=== PATIENT | male | born 1955 | race Caucasian/White ===

== ENCOUNTER 2016-10-11 11:46 | Emergency (ER) | payer MEDICARE, OTHER ==
[2016-10-11 12:02] VITALS: RESP 16; TEMP 97.8
--- NOTE | 2016-10-11 12:24 | XR ---
EXAMINATION TYPE: XR shoulder complete LT DATE OF EXAM: 10/11/2016 12:20 PM CLINICAL HISTORY: pain COMPARISON: NONE TECHNIQUE: Three views of the left shoulder are obtained. FINDINGS: There is no acute fracture/dislocation evident. Elevation left humeral head may reflect ch ronic rotator cuff tear. There appears to be subacromial impingement. Cystic degenerative changes not ed. AC joint arthropathy and narrowing of the glenohumeral joint space. The visualized ribs are intac t and unremarkable. IMPRESSION: 1. There is no acute fracture or dislocation. ICD 10 NO FRACTURE, INITIAL EVALUATION
[2016-10-11] MEDS ORDERED: KETOROLAC 60 MG/2 ML VIAL IM STA (12:31)
--- NOTE | 2016-10-11 12:35 | ED ---
Extremity Problem HPI - General Chief complaint: Extremity Problem,Nontraumatic Stated complaint: LEFT ARM PAIN, UNABLE TO LIFT Time Seen by Provider: 10/11/16 12:03 Source: patient, RN notes reviewed Mode of arrival: ambulatory Limitations: no limitations - History of Present Illness Initial comments: 61-year-old male presents to the emergency Department chief complaint of left shoulder pain. Patient states he's had this pain since the weekend. Patient states it started after he was cleaning his chandelier home. Patient states he has difficulty lifting his arm at all due to pain and feels weak. Patient states he binges like a snapping sensation and it fall down. Patient states he does have a history of a shoulder injury about 10 years ago. Patient states that he chest aching and painful and tender to touch without that he should be evaluated. Patient states he is not currently having any other symptoms at this time.Patient denies any recent fever, chills, shortness of breath, chest pain, back pain, abdominal pain, nausea vomiting, numbness or tingling, dysuria or hematuria, constipation or diarrhea, headaches or visual changes, or any other current symptoms. - Related Data Previous Rx's Medication Instructions Recorded Ibuprofen [Motrin] 600 mg PO Q6HR PRN #20 tab 10/11/16 Allergies Allergy/AdvReac Type Severity Reaction Status Date / Time No Known Allergies Allergy Verified 10/11/16 11:57 Review of Systems ROS Statement: Those systems with pertinent positive or pertinent negative responses have been documented in the HPI. ROS Other: All systems not noted in ROS Statement are negative. Past Medical History Past Medical History: Hyperlipidemia, Hypertension Additional Past Medical History / Comment(s): BACK PAIN History of Any Multi-Drug Resistant Organisms: MRSA Date of last positivie culture/infection: 2012 MDRO Source:: SKIN Past Surgical History: Cholecystectomy Additional Past Surgical History / Comment(s): CERVICAL SURGERY, FATTY TUMOR REMOVED, LEFT HAND SURGERY Past Psychological History: Depression Smoking Status: Current every day smoker Past Alcohol Use History: None Reported Past Drug Use History: None Reported General Exam Limitations: no limitations General appearance: alert, in no apparent distress ENT exam: Present: normal exam, mucous membranes moist Neck exam: Present: normal inspection. Absent: tenderness, meningismus, lymphadenopathy Respiratory exam: Present: normal lung sounds bilaterally. Absent: respiratory distress, wheezes, rales, rhonchi, stridor Cardiovascular Exam: Present: regular rate, normal rhythm, normal heart sounds. Absent: systolic murmur, diastolic murmur, rubs, gallop, clicks Left General: Present: normal inspection Shoulder Exam: Present: normal inspection, tenderness (Along the superior shoulders through the trapezius muscle), other (She has a positive decongestant left shoulder). Absent: full ROM (Patient has limited range of motion with total flexion of the shoulder due to pain), swelling, abrasion, laceration, ecchymosis, deformity Upper Arm exam: Present: normal inspection. Absent: tenderness, swelling Elbow exam: Present: normal inspection, full ROM. Absent: tenderness, swelling Forearm Wrist exam: Present: normal inspection, full ROM. Absent: tenderness, swelling Hand Wrist exam: Present: normal inspection, full ROM. Absent: tenderness, swelling Back exam: Present: normal inspection Course Vital Signs 10/11/16 11:58 Temperature 97.8 F Pulse Rate 89 Respiratory 16 Rate Blood Pressure 193/93 O2 Sat by Pulse 97 Oximetry Procedures - Orthopedic Splinting/Casting Injury #1 Side: left Upper Extremity Injury Location: shoulder Upper Extremity Immobilizer: sling/shoulder immobilizer Medical Decision Making - Medical Decision Making 61-year-old male presents for appears to be a left shoulder injury. This time we discussed it could be rotator cuff injury. We did give him a sling due to comfort. We did discuss the risk of frozen shoulder we did discuss how to properly wear the sling. We discussed return parameters and follow-up. We discussed all the patient's questions we will put him on Motrin. We discussed return parameters. Patient is in agreement with plan HAVE been answered. He will be discharged home. - Radiology Data Radiology results: report reviewed, image reviewed Disposition Clinical Impression: Left shoulder strain Disposition: HOME SELF-CARE Condition: Stable Instructions: Rotator Cuff Injury (ED) Additional Instructions: Please use medication as discussed. Please follow up with family doctor if symptoms have not improved over the next two days. Please return to the emergency room if your symptoms increase or worsen or for any other concerns. Prescriptions: Ibuprofen [Motrin] 600 mg PO Q6HR PRN #20 tab PRN Reason: Pain Referrals: Marina Marques MD [Primary Care Provider] - 1-2 days Ilya Blackburn MD [STAFF PHYSICIAN] - 1-2 days Time of Disposition: 12:35
[2016-10-11 12:42] VITALS: BP 183/92; PULSE 91
== END 2016-10-11 12:47 | disposition home or self-care (01) ==
LOC: EC 11:46
DX: S46.912A Strain of unspecified muscle, fascia and tendon at shoulder and upper arm level, left arm, initial encounter (principal); F17.200 Nicotine dependence, unspecified, uncomplicated; X58.XXXA Exposure to other specified factors, initial encounter; Y92.009 Unspecified place in unspecified non-institutional (private) residence as the place of occurrence of the external cause
CPT/HCPCS: 99283 ×2; 96372 ×2; 73030; J1885

== ENCOUNTER → 2016-11-24 | Outpatient (CLI) | payer MEDICARE, OTHER ==
--- NOTE | 2016-11-24 09:53 | CT ---
EXAMINATION TYPE: CT shoulder LT wo con DATE OF EXAM: 11/24/2016 COMPARISON: Left shoulder x-ray October 2016. HISTORY: Reaching to change light bulb, arm gave out, unable to use CT DLP: 640.7 mGycm Automated exposure control for dose reduction was used. FINDINGS: Acromioclavicular joint is maintained. There is high riding humeral head consistent with chronic rotator cuff tear. No acute fracture is vilma ntified. There is extensive subchondral cystic change involving the superior and medial humeral head. There is marked joint space loss with subchondral cystic change involving the superior acetabulum. There is s ome spurring from the inferior medial humeral head margin. [id number] is present due to marked join t space loss. There is ossific reformation present. There is moderate atrophy of the supraspinatus muscle bulk with more mild atrophy of the infraspinatu s and teres minor muscles identified. Visualized lungs show some scarring centrally. IMPRESSION: CHRONIC ROTATOR CUFF TEAR WITH ADVANCED GLENOHUMERAL JOINT ARTHROPATHY NOTED.
== END | disposition home or self-care (01) ==
LOC: RADCTMAIN 08:17
PROVIDERS: ATTEND Orthopaedic Surgery Sports Medicine
DX: M75.102 Unspecified rotator cuff tear or rupture of left shoulder, not specified as traumatic (principal); M19.012 Primary osteoarthritis, left shoulder

== ENCOUNTER → 2016-12-09 | Outpatient (CLI) | payer MEDICARE, OTHER ==
[2016-12-09 11:39] LABS: EKG EKG PERFORMED
[2016-12-09 12:17] LABS: Basophils # (A) 0.1 k/uL (0-0.2); Basophils % (A) 1 %; CH 30.8; CHCM 34.3; Eosinophils # (A) 0.2 k/uL (0-0.7); Eosinophils % (A) 2 %; HCT 42.4 % (39.0-53.0); HDW 2.65; HGB 14.5 gm/dL (13.0-17.5); Luc # (Auto) 0.16; Luc % (Auto) 2; Lymphocytes % (A) 19 %; MCH 30.8 pg (25.0-35.0); MCHC 34.1 g/dL (31.0-37.0); MCV 90.4 fL (80.0-100.0); Mean Platelet Volume 7.5; Monocytes # (A) 0.5 k/uL (0-1.0); Monocytes % (A) 4 %; Neutrophils # (A) 7.7 k/uL (1.3-7.7); Neutrophils % (A) 72 %; RBC 4.69 m/uL (4.30-5.90); RDW 13.9 % (11.5-15.5); WBC 10.6 k/uL (3.8-10.6); WBC (Perox) 10.81
[2016-12-09 12:19] LABS: INR 1.3 (<1.1); Partial Thromboplastin Time 23.7 sec (22.0-30.0); Prothrombin Time 12.8 sec (9.0-12.0)
[2016-12-09 12:35] LABS: ALT 24 U/L (21-72); AST 25 U/L (17-59); Alkaline Phosphatase 101 U/L (38-126); Anion Gap 11 mmol/L; Blood Urea Nitrogen 18 mg/dL (9-20); Calcium 9.5 mg/dL (8.4-10.2); Carbon Dioxide 19 mmol/L (22-30); Chloride 109 mmol/L (98-107); Glucose 106 mg/dL (74-99); Non-African American GFR(MDRD) >60 (>60 ml/min/1.73 sqM); Potassium 4.1 mmol/L (3.5-5.1); Sodium 139 mmol/L (137-145); Total Bilirubin 1.5 mg/dL (0.2-1.3); Total Protein 7.6 g/dL (6.3-8.2)
== END | disposition home or self-care (01) ==
LOC: LABPAT 11:07
PROVIDERS: ATTEND Orthopaedic Surgery Sports Medicine
DX: Z01.810 Encounter for preprocedural cardiovascular examination (principal); Z01.812 Encounter for preprocedural laboratory examination
CPT/HCPCS: 36415; 80053; 85025; 85610; 85730; 87070; 93005

== ENCOUNTER → 2016-12-10 | Outpatient (CLI) | payer MEDICARE, OTHER ==
[2016-12-10 11:06] LABS: Appearance,Urine Clear (Clear); Bilirubin,Urine Negative (Negative); Glucose,Urine (UA) Negative (Negative); Ketones,Urine Negative (Negative); Leukocyte Esterase,Urine Negative (Negative); Nitrite,Urine Negative (Negative); PH, Urine 6.5 (5.0-8.0); Protein,Urine Negative (Negative); Specific Gravity,Urine 1.017 (1.001-1.035); UA Billing (MACRO vs. MICRO) CHEM
== END | disposition home or self-care (01) ==
LOC: LABPAT 10:32
PROVIDERS: ATTEND Orthopaedic Surgery Sports Medicine
DX: Z01.810 Encounter for preprocedural cardiovascular examination (principal); Z51.81 Encounter for therapeutic drug level monitoring; Z79.01 Long term (current) use of anticoagulants
CPT/HCPCS: 81003

== ENCOUNTER 2016-12-16 08:00 | Inpatient (IN) | payer MEDICARE, OTHER ==
[2016-12-10 10:46] VITALS: BMI 34.2
[~2016-12-16 08:00] MED LIST: ACETAMINOPHEN TAB 500 MG TAB PO ONE; HYDROmorphone 1 MG/ML 1 ML SYRINGE IVP PRN; LACTATED RINGERS 1,000 ML IV SCH; LIDOCAINE 1% 20 ML VIAL (10MG/ML) FOR IV START INTRADERMA PRN; MELOXICAM 7.5 MG TAB PO ONE; MIDAZOLAM 2 MG/2 ML VIAL IV PRN; ONDANSETRON 4 MG/2 ML VIAL IVP ONE; SCOPOLAMINE 1.5MG/72HR PATCH TRANSDERM ONE; TRANEXAMIC ACID 1,000 MG in SODIUM CHLORIDE 0.9% 100 ML IVPB ONE; ceFAZolin 2 GM in SODIUM CHLORIDE 0.9% 100 ML IVPB ONE; fentaNYL (PF) 50 MCG/ML 20 ML VIAL IVP PRN
[2016-12-16] MEDS ORDERED: ROPIVACAINE 5 MG/ML 30 ML VIAL ONE (11:38)
[2016-12-16] MEDS ORDERED: LIDOCAINE 2%-EPI 1:100,000 20 ML VIAL ONE (11:38)
[2016-12-16] MEDS ORDERED: SODIUM CHLORIDE 0.9% 100 ML BAG ONE (11:38)
[2016-12-16] MEDS ORDERED: ROCURONIUM BROMIDE 10 MG/ML 10 ML VIAL IV ONE (11:38)
[2016-12-16] MEDS ORDERED: MIDAZOLAM 2 MG/2 ML VIAL ONE (11:38)
[2016-12-16] MEDS ORDERED: NEOSTIGMINE 1 MG/ML 10 ML VIAL ONE (11:38)
[2016-12-16] MEDS ORDERED: TRANEXAMIC ACID 1,000 MG/10 ML VIAL ONE (11:38)
[2016-12-16] MEDS ORDERED: LIDOCAINE 1% INJ 10MG/ML (20 ML MDV) ONE (11:38)
[2016-12-16] MEDS ORDERED: HYDROmorphone (PF) 1 MG/ML ONE (11:38)
[2016-12-16] MEDS ORDERED: ePHEDrine 50 MG/ML 1 ML AMP ONE (11:38)
[2016-12-16] MEDS ORDERED: SUCCINYLCHOLINE CHLORIDE VIAL 200 MG/10 ML VIAL IV ONE (11:38)
[2016-12-16] MEDS ORDERED: fentaNYL (PF) 50 MCG/ML 2 ML AMP ONE (11:38)
[2016-12-16] MEDS ORDERED: PROPOFOL 10 MG/ML 20 ML VIAL IV ONE (11:38)
[2016-12-16] MEDS ORDERED: GLYCOPYRROLATE 0.2 MG/ML 2 ML VIAL ONE (11:38)
[2016-12-16] MEDS ORDERED: ceFAZolin 3,000 MG in SODIUM CHLORIDE 0.9% IRRIGATIO 3,000 ML IRRIGATION ONE (12:28)
[2016-12-16] MEDS ORDERED: VANCOMYCIN 1,000 MG VIAL MISCELLANE ONE ×2 (12:41→13:11)
[2016-12-16] MEDS ORDERED: diphenhydrAMINE 25 MG CAP PO PRN (13:44)
[2016-12-16] MEDS ORDERED: METOCLOPRAMIDE 5 MG/ML 2 ML VIAL IVP PRN (13:44)
[2016-12-16] MEDS ORDERED: ONDANSETRON 4 MG/2 ML VIAL IVP PRN (13:44)
[2016-12-16] MEDS ORDERED: PROCHLORPERAZINE SUPPOSITORY 25 MG SUPP RECTAL PRN (13:44)
[2016-12-16] MEDS ORDERED: SENNOSIDES-DOCUSATE SODIUM 1 EACH TAB PO PRN (13:44)
[2016-12-16] MEDS ORDERED: TEMAZEPAM 15 MG CAP PO PRN (13:44)
[2016-12-16] MEDS ORDERED: hydrOXYzine PAMOATE 25 MG CAP PO PRN (13:44)
[2016-12-16] MEDS ORDERED: HYDROmorphone 1 MG/ML 1 ML SYRINGE IVP PRN ×2 (13:44)
[2016-12-16] MEDS ORDERED: LACTATED RINGERS 1,000 ML IV ONE (13:46)
[2016-12-16] MEDS ORDERED: HYDROcodone/APAP 10-325MG 1 EACH TAB PO PRN (13:50)
--- NOTE | 2016-12-16 14:15 | XR ---
EXAMINATION TYPE: XR shoulder limited LT DATE OF EXAM: 12/16/2016 CLINICAL HISTORY: Left shoulder surgical repair. TECHNIQUE: Single postoperative view of left shoulder is obtained. COMPARISON: Prior left shoulder x-ray October 2016. FINDINGS: Metallic hardware from reverse shoulder arthroplasty is present and satisfactory in positio n. Air from recent surgery seen subcutaneous level and just below acromion. Percutaneous drainage cat heter is present. The visualized ribs are intact and unremarkable. Suspect small left pleural effusi on. IMPRESSION: Metallic hardware from left shoulder surgery is felt satisfactory in position
[2016-12-16] MEDS ORDERED: HYDROmorphone 1 MG/ML 1 ML SYRINGE IVP ONE (14:17)
[2016-12-16] MEDS ORDERED: ROPIVACAINE 5 MG/ML 30 ML VIAL MISCELLANE ONE (14:30)
--- NOTE | 2016-12-16 14:47 | P.ONQ ---
Anesthesiology Proc Note - PNB - Peripheral Nerve Block Performed Left Interscalene Single Time Out Performed: Yes Procedure Start Time: 14:30 Procedure Stop Time: 14:34 Indication: Acute Post-Operative Pain, Requested by physician Sedation Type: Sedate with meaningful contact maintained Preparation: Sterile Prep Position: Supine Needle Size: 50mm (2") Needle Gauge: 21 Technique: Ultrasound Injectate: 2.0% Lidocaine (see comment for volume) (ropi.5% plus xylo2% 17 cc each) Blood Aspirated: No Pain Paresthesia on Injection Noted: No Resistance on Injection: Normal Events: Uneventful and Well Tolerated
[2016-12-16 14:51] VITALS: RESP 16
[2016-12-16] MEDS: LACTATED RINGERS 1,000 ML IV SCH ×2 (15:35→23:51)
[2016-12-16] MEDS: HYDROcodone/APAP 10-325MG 1 EACH TAB PO PRN ×2 (15:40→21:14)
[2016-12-16] MEDS: ceFAZolin 2 GM in SODIUM CHLORIDE 0.9% 100 ML IVPB SCH ×2 (15:40→23:50)
[2016-12-16 16:06] LABS: Basophils % (A) 0 %; CH 30.6; CHCM 34.1; Eosinophils # (A) 0.1 k/uL (0-0.7); Eosinophils % (A) 0 %; HCT 37.3 % (39.0-53.0); HDW 2.75; HGB 12.8 gm/dL (13.0-17.5); Luc # (Auto) 0.08; Luc % (Auto) 1; Lymphocytes # (A) 1.3 k/uL (1.0-4.8); Lymphocytes % (A) 8 %; MCHC 34.4 g/dL (31.0-37.0); MCV 90.2 fL (80.0-100.0); Mean Platelet Volume 7.4; Monocytes # (A) 0.6 k/uL (0-1.0); Monocytes % (A) 4 %; Neutrophils # (A) 14.1 k/uL (1.3-7.7); Neutrophils % (A) 87 %; RBC 4.14 m/uL (4.30-5.90); RDW 14.2 % (11.5-15.5); WBC 16.1 k/uL (3.8-10.6); WBC (Perox) 16.19
[2016-12-16] MEDS: DOXYCYCLINE 50 MG CAP PO SCH (21:14)
[2016-12-17] MEDS: HYDROmorphone 1 MG/ML 1 ML SYRINGE IVP PRN ×3 (00:03→05:03)
[2016-12-17 01:28] VITALS: TEMP 98.4
[2016-12-17] MEDS: HYDROcodone/APAP 10-325MG 1 EACH TAB PO PRN ×3 (03:23→13:19)
[2016-12-17] MEDS ORDERED: PANTOPRAZOLE 40 MG TABLET PO SCH (07:30)
[2016-12-17] MEDS: DOXYCYCLINE 50 MG CAP PO SCH (08:18)
[2016-12-17 08:23] VITALS: PULSE 72
--- NOTE | 2016-12-17 08:36 | OP ---
SURGEON: Ilya Blackburn MD EVENT SECURITY OFFICER: MEGAN Rodriguez PREOPERATIVE DIAGNOSIS: Left shoulder advanced rotator cuff arthropathy. POSTOPERATIVE DIAGNOSIS: Left shoulder advanced rotator cuff arthropathy. OPERATION: Left reverse total shoulder arthroplasty. ANESTHESIA: General endotracheal. ESTIMATED BLOOD LOSS: 250 mL. DRAINS: One deep drain. COMPLICATIONS: None apparent. DISPOSITION: Postanesthesia care unit. INDICATIONS: Mr. Dixon is a very pleasant 61-year-old male with long-standing left shoulder pain. Workup including x-rays revealed advanced osteoarthrosis with a chronic massive rotator cuff tear of the left shoulder. He has had long- standing advanced left shoulder rotator cuff arthropathy. At this point, he feels as if he has failed conservative management. He would like to proceed with operative intervention. The risks of procedure were discussed with him in detail. These risks include but are not limited to risk of infection, nerve damage, bleeding, pain, instability in the shoulder, loosening of the implants and a risk of deep infection. There is also risk of deep vein thrombosis, which could lead to fatal pulmonary embolism. The patient understands the risks. All of his questions with regards to the risks of the procedure were answered to his satisfaction and an appropriate informed consent was obtained. DESCRIPTION OF THE PROCEDURE: The patient was identified in the preoperative holding area. The surgical site was marked by both the patient and myself. He was given 2 grams of Ancef IV for prophylactic purposes. He was then transferred to the operative suite where he was placed supine on the operating room table. General anesthetic was then administered and dosed per the anesthesia department without apparently complication. Examination under anesthesia was then performed of the left shoulder. He had elevation to 120 degrees, external rotation at the side was to 30 degrees. The patient's left upper extremity was then prepped and draped in the usual sterile fashion. A standard surgical pause was then undertaken to ensure that we were operating on correct site and that appropriate preoperative antibiotics have been given. All staff in the room were in agreement and we proceeded. The acromion, AC joint, clavicle and coracoid were marked with surgical pen. The planned incision starting at the level of the clavicle and extending distally over the deltopectoral interval approximately 1 cm lateral to the coracoid was marked with a surgical pen. The incision was then made with a 10-blade scalpel. Dissection was carried down sharply to the deltoid fascia. The deltopectoral interval was then identified at the level of the clavicle. A small band retractor was then placed under the proximal deltoid. I then released the deltoid fascia on the lateral aspect of the cephalic vein. The vein was left in its bed medially. The cephalic vein was also protected throughout the entire case. I then identified the clavipectoral fascia. This was incised proximally to the level of the coracoacromial ligament. The coracoacromial ligament was left intact. I then used my finger to spread the interval between the conjoined tendon and the subscapularis. I felt for the axillary nerve, which was readily palpable. I then cleared the subacromial and subdeltoid spaces of bursal and scar tissue. I then utilized a Stinson retractor to hold the deltoid and expose the humeral head. I then proceed with release of the subscapularis and the anterior inferior shoulder capsule. The humeral head was nearly completely devoid of rotator cuff tissue. The supraspinatus and infraspinatus were chronically torn. The subscapularis had just an inferior aspect of the subscapularis was still intact. The subscapularis and capsule were then released off of the bone. This release was extended distally in a lazy S fashion approximately 1 cm medial to the bicipital groove. I then continued to release the capsule along the inferior neck in a vertical fashion to about the 6 o'clock position. Great care was taken to ensure the capsule was always visualized as it was released to avoid injuring the axillary nerve. I then brought a Collins information technology audit manager with the arm externally rotated and abducted. I continued to release the capsule inferior medially to the 4 o'clock position. The inferior osteophytes were now as removed as well. This was done with a rongeur. I then proceed with preparation of the humerus. I removed all the goat's garcia osteophytes. I then removed the subchondral plate from the superior aspect to the humeral head utilizing a large rongeur. I then used a starting reamer to gain access to the humeral canal. This was 1 cm medial to the rotator cuff, normal rotator cuff insertion and 1 cm posterior to bicipital groove. I then prepared the humeral canal with hand reaming. I started with a 6 mm reamer and progressed in 1 mm increments until firm resistance was encountered. This was at 9 mm. The reamer ( ) was then left in place. I then utilized the humeral resection guide. This was set at 30 degrees of retrotorsion. The cutting block was then set at the usual insertion of the rotator cuff. I then proceed to osteotomize the head with an oscillating saw. I removed the resection guide and then completed the osteotomy. I then broached the canal starting with a 6 broach up to a size 9 broach. The broaching was done at 30 degrees of retrotorsion. The broach was then left in place. I then proceeded with exposure of the glenoid. A bone hook was used to pull the humerus laterally. I inspected the joint for any loose bodies. The Bhattman retractor was then placed on the posterior glenoid rim. The arm was placed at approximately 70 degrees of abduction and in slight flexion on the Collins stand. I then proceed to remove the hypertrophic labrum to definitively identify the actual glenoid. I then utilized the mini baseplate guide. This was placed flushed with the glenoid. I then placed a starting pin in 10 degrees of inferior tilt as directed by the guide. This was then inspected. I then proceed with reaming. The cannulated reamer for the mini baseplate was then placed over the pin. The reaming was then done. I preferentially reamed the inferior aspect of the glenoid more than superior aspect providing normal inferior tilt to the baseplate. I then placed the mini baseplate and it was impacted into placed. I placed a central screw. This was a 35 mm central screw. It had excellent purchase. I was able to rotate the scapula with a screwdriver after the screw was placed. I then placed the 4 peripheral locking screws. The superior and inferior locking screws were 25 mm. The anterior and posterior locking screws were 15 mm. I then placed a size 36 Glenosphere. It was offset to preferentially allow inferior placement of the head relative to the glenoid. This Angela taper was then impacted into place and the Glenosphere was secure. I then trialed the shoulder with a standard baseplate and a standard polyethylene. This had an excellent fit. It was a slightly difficult reduction , had excellent tension. It was very stable throughout a full range of motion with no impingement. I then re-dislocated the shoulder very carefully. The trial broach, the trial tray and poly were moved. The wound was again thoroughly irrigated with sterile saline solution with antibiotic added. I had the promotions representative open a standard polyethylene and standard tray as well as a size 9 mini stem. The stem was then impacted firmly in 30 degrees of retrotorsion. The polyethylene was placed and impacted onto the tray on the back table. The tray was then impacted on the Angela taper of the stem properly. I then reduced the shoulder. Again, this was done very carefully. Again, it was a slightly difficult reduction. I had good tension. It was very stable. It had a good range of motion without any impingement. I then proceed with closure. The subscapularis was quite macerated and deemed irreparable. I did not repair the subscapularis. The wound again was thoroughly irrigated with sterile saline solution with antibiotic added. I used 1 gram of vancomycin powder within the wound. This was first sprinkled into the deep aspect of the wound. A deep drain was then placed and brought out superiorly away from the incision. The deltopectoral interval was then closed with 0 Vicryl interrupted suture. Again, the wound was thoroughly irrigated with sterile saline solution with antibiotic added. The remainder of the vancomycin powder was then sprinkled into the wound. The subcutaneous tissue was closed with 2-0 Vicryl interrupted suture and the skin was closed with running 3-0 Quill suture. Dermabond was then applied to the incision. Sterile compressive dressings were then applied. The patient's left upper extremity was placed in a standard sling. All sponge and needle counts were deemed correct prior to closure. The patient tolerated the procedure without apparent complication. He was transferred to the recovery room in stable condition. I visited him in the recovery room after he had awoken from general anesthesia. He had intact extensor pollicis longus, flexor pollicis longus, extensor indicis , hand intrinsics and the FDP to the small finger was intact. He had an intact radial, median and ulnar nerve sensation and he had a palpable radial pulse with brisk capillary refill in all digits. KWAKU
[2016-12-17] MEDS ORDERED: TAMSULOSIN 0.4 MG CAP.ER.24H PO SCH (09:00)
[2016-12-17] MEDS ORDERED: LISINOPRIL 10 MG TAB PO SCH (09:00)
[2016-12-17] MEDS ORDERED: ATORVASTATIN 40 MG TAB PO SCH (09:00)
[2016-12-17] MEDS ORDERED: ASPIRIN 325 MG TAB PO SCH (09:00)
[2016-12-17] MEDS ORDERED: CITALOPRAM HYDROBROMIDE 20 MG TAB PO SCH (09:00)
[2016-12-17] MEDS ORDERED: oxyCODONE ER 10 MG TAB.ER.12H PO SCH (09:00)
--- NOTE | 2016-12-17 09:36 | P.PN ---
Subjective Principal diagnosis: Status post reverse shoulder arthroplasty Patient is a pleasant 61-year-old male seen at bedside this morning. He is postop day #1 from left reverse total shoulder arthroplasty. He has pain at the surgical site as expected. He denies new complaints. He denies left upper extremity numbness, tingling or radicular symptoms. Review of systems is negative for fever, chills, chest pain or shortness of breath. Objective - Vital Signs Vital signs: Vital Signs Temp 98.4 F 12/17/16 07:00 Pulse 72 12/17/16 07:00 Resp 16 12/17/16 07:00 BP 188/79 12/17/16 07:00 Pulse Ox 95 12/17/16 07:39 Intake & Output 12/16/16 12/17/16 12/17/16 18:59 06:59 18:59 Intake Total 1501 Output Total 425 1395 Balance 1076 -1395 Weight 111.584 kg Intake: IV 1501 Output: Drainage 195 Left Shoulder 195 Urine 225 1200 Straight 600 Estimated Blood Loss 200 Other: # Voids 0 # Bowel Movements 1 - Exam Inspection of the left upper extremity shoulder shows a benign surgical wound. There is no active bleeding or drainage. Neurovascular status intact with motor and sensation throughout the left upper extremity. Wrist extension and Dining Room Server strength is 5 out of 5. 2+ radial pulse present and less than 2 second cap refill in all - Constitutional General appearance: Present: no acute distress - Psychiatric Psychiatric: Present: A&O x's 3, appropriate affect, intact judgment & insight - Labs CBC & Chem 7: 12/16/16 15:43 Labs: Abnormal Lab Results - Last 24 Hours (Table) 12/16/16 Range/Units 15:43 WBC 16.1 H (3.8-10.6) k/uL RBC 4.14 L (4.30-5.90) m/uL Hgb 12.8 L (13.0-17.5) gm/dL Hct 37.3 L (39.0-53.0) % Neutrophils # 14.1 H (1.3-7.7) k/uL Assessment and Plan (1) Status post total shoulder arthroplasty Narrative/Plan: He'll continue with routine postop orthopedic protocol including pain management , wound care, physical therapy and DVT prophylaxis and medical management. Hemovac drain will be removed. His pain medication will be adjusted to make him more comfortable. Expect that he'll be discharged to home tomorrow. Status: Acute Time with Patient: Less than 30
--- NOTE | 2016-12-17 10:21 | P.DS ---
Providers Date of admission: 12/16/16 09:18 Expected date of discharge: 12/17/16 Attending physician: Ilya Blackburn Consults: 12/16/16 13:44 Consult Physician Routine Consulting Provider: Darek Haile Consult Reason/Comments: post op medical management Do you want consulting provider notified?: Yes Primary care physician: Marina Marques - Discharge Diagnosis(es) (1) Status post total shoulder arthroplasty Patient was admitted the OR on 12/16/2016 to undergo left reverse total shoulder arthroplasty. He had failed conservative measures as an outpatient desired proceed with elective surgery after given informed consent. He underwent the above procedure which she tolerated well without complication. His postoperative hospital course remained without complication. On day of discharge she is afebrile, vital signs stable, labs within acceptable ranges, wound is benign, neurovascular status intact, total by mouth meds and diet, pain controlled with oral pain medication, abdomen soft nontender, nontender, denying new complaints, denying new numbness or tingling or weakness. Review of systems negative for fever, chills, chest pain, shortness breath, nausea, vomiting, dizziness, headaches, slurred speech or other. Current Visit: Yes Status: Acute Priority: Medium Procedures: Reverse total shoulder arthroplasty Patient Condition at Discharge: Good Plan - Discharge Summary New Discharge Prescriptions: New Aspirin 325 mg PO DAILY #30 tab Docusate [Colace] 100 mg PO BID #60 capsule Doxycycline Hyclate 100 mg PO BID #10 tab HYDROcodone/APAP 10-325MG [[place] 10-325] 1 tab PO Q4HR PRN #60 tab PRN Reason: Pain oxyCODONE ER [OxyCONTIN] 10 mg PO Q12HR #14 tab No Action HYDROcodone/APAP 7.5-325MG [[place] 7.5-325] 1 tab PO Q6HR PRN PRN Reason: Pain Diclofenac Sodium [Voltaren] 25 mg PO BID Citalopram Hydrobromide [CeleXA] 20 mg PO DAILY Tamsulosin HCl [Flomax] 0.4 mg PO DAILY Omeprazole [PriLOSEC] 20 mg PO AC-BRKFST Lisinopril [Zestril] 10 mg PO DAILY Ibuprofen [Motrin] 200 mg PO TID PRN PRN Reason: Pain Atorvastatin [Lipitor] 40 mg PO DAILY Discharge Medication List Atorvastatin [Lipitor] 40 mg PO DAILY 12/10/16 [History] Citalopram Hydrobromide [CeleXA] 20 mg PO DAILY 12/10/16 [History] Diclofenac Sodium [Voltaren] 25 mg PO BID 12/10/16 [History] HYDROcodone/APAP 7.5-325MG [[place] 7.5-325] 1 tab PO Q6HR PRN 12/10/16 [History] Ibuprofen [Motrin] 200 mg PO TID PRN 12/10/16 [History] Lisinopril [Zestril] 10 mg PO DAILY 12/10/16 [History] Omeprazole [PriLOSEC] 20 mg PO AC-BRKFST 12/10/16 [History] Tamsulosin HCl [Flomax] 0.4 mg PO DAILY 12/10/16 [History] Aspirin 325 mg PO DAILY #30 tab 12/17/16 [Rx] Docusate [Colace] 100 mg PO BID #60 capsule 12/17/16 [Rx] Doxycycline Hyclate 100 mg PO BID #10 tab 12/17/16 [Rx] HYDROcodone/APAP 10-325MG [[place] 10-325] 1 tab PO Q4HR PRN #60 tab 12/17/16 [Rx] oxyCODONE ER [OxyCONTIN] 10 mg PO Q12HR #14 tab 12/17/16 [Rx] Follow up Appointment(s)/Referral(s): Ilya Blackburn MD [STAFF PHYSICIAN] - 12/27/16 10:00 am Activity/Diet/Wound Care/Special Instructions: Keep wound clean and dry May shower in 72 hours Take meds as directed Follow up with Dr. Blackburn in office, [phone] Nonweightbearing left upper extremity Maintain sling Discharge Disposition: HOME SELF-CARE
[2016-12-17] MEDS: LACTATED RINGERS 1,000 ML IV SCH (10:52)
[2016-12-17 10:58] VITALS: BP 157/75
[2016-12-17] MEDS ORDERED: HYDROcodone/APAP 10-325MG 1 EACH TAB PO STA (11:15)
--- NOTE | 2016-12-17 12:28 | P.CONS ---
History of Present Illness - Reason for Consult Medical clearance, leukocytosis and antihypertensive medication recommendat - History of Present Illness Patient is admitted for left shoulder arthroplasty, patient successfully underwent surgery. Patient denied any fever, chills, nausea, vomiting, abdominal pain, cough patient had minimal pain secondary to the Khan catheter that was placed during surgery. Beyond that there is no significant other problems. Patient did move his bowels. Pain is well controlled. He was started back on all his medications including antihypertensive medications with well controlled blood pressure. The patient doesn't sleep very well patient may need outpatient sleep study. Patient doesn't have any fever. No other signs or symptoms of sepsis. Patient is okay to be discharged from medical perspective. Review of Systems REVIEW OF SYSTEMS: CONSTITUTIONAL: No fever, no malaise, no fatigue. HEENT: No recent visual problems or hearing problems. Denied any sore throat. CARDIOVASCULAR: No chest pain, orthopnea, PND, no palpitations, no syncope. PULMONARY: No shortness of breath, no cough, no hemoptysis. GASTROINTESTINAL: No diarrhea, no nausea, no vomiting, no abdominal pain. Normoactive bowel sounds. NEUROLOGICAL: No headaches, no weakness, no numbness. HEMATOLOGICAL: Denies any bleeding or petechiae. GENITOURINARY: Denies any burning micturition, frequency, or urgency. MUSCULOSKELETAL/RHEUMATOLOGICAL: Deferred to orthopedic surgery ENDOCRINE: Denies any polyuria or polydipsia. The rest of the 14-point review of systems is negative. Past Medical History Past Medical History: GERD/Reflux, Hyperlipidemia, Hypertension, Osteoarthritis (OA), Prostate Disorder Additional Past Medical History / Comment(s): BACK PAIN, VARICOSE VEINS, HX OF HEPATITIS C WITH LIVER DAMAGE. (2013), STATES MRSA OF SKIN (2012 OR 2013)., STATES SKIN TEARS AND BRUISES EASILY., RASH ON ANKLE., ENLARGED PROSTATE. History of Any Multi-Drug Resistant Organisms: MRSA Year Discovered:: 2012 MDRO Source:: SKIN Past Surgical History: Cholecystectomy Additional Past Surgical History / Comment(s): CERVICAL SURGERY, FATTY TUMOR REMOVED, LEFT HAND SURGERY. Past Anesthesia/Blood Transfusion Reactions: No Reported Reaction Smoking Status: Current every day smoker - Past Family History Mother Family Medical History: No Reported History Medications and Allergies Home Medications Medication Instructions Recorded Confirmed Type Atorvastatin [Lipitor] 40 mg PO DAILY 12/10/16 12/16/16 History Citalopram Hydrobromide [CeleXA] 20 mg PO DAILY 12/10/16 12/16/16 History Diclofenac Sodium [Voltaren] 25 mg PO BID 12/10/16 12/16/16 History HYDROcodone/APAP 7.5-325MG [[place] 1 tab PO Q6HR PRN 12/10/16 12/16/16 History 7.5-325] Lisinopril [Zestril] 10 mg PO DAILY 12/10/16 12/16/16 History Omeprazole [PriLOSEC] 20 mg PO AC-BRKFST 12/10/16 12/16/16 History Tamsulosin HCl [Flomax] 0.4 mg PO DAILY 12/10/16 12/16/16 History Allergies Allergy/AdvReac Type Severity Reaction Status Date / Time tramadol Allergy Unknown Rash/Hives Verified 12/16/16 14:05 bupropion [From Wellbutrin] AdvReac Unknown STATES IT Verified 12/16/16 14:05 MADE HIM ANGRY Physical Exam Vitals: Vital Signs Temp Pulse Resp BP BP Pulse Ox 12/17/16 10:58 157/75 12/17/16 07:39 95 12/17/16 07:00 98.4 F 72 16 188/79 93 L 12/17/16 01:26 98.4 F 69 16 140/70 96 12/16/16 20:08 98.5 F 79 16 114/63 94 L 12/16/16 16:45 79 110/58 94 L 12/16/16 16:30 79 103/53 94 L 12/16/16 16:15 77 97/56 94 L 12/16/16 16:00 76 16 105/51 94 L 12/16/16 15:45 77 107/51 93 L 12/16/16 15:30 97.5 F L 90 16 119/55 93 L 12/16/16 15:00 89 16 115/52 96 12/16/16 14:45 92 16 117/57 95 12/16/16 14:30 88 22 173/80 97 12/16/16 14:17 87 22 131/60 99 12/16/16 14:05 88 20 136/65 100 12/16/16 13:50 97.4 F L 94 14 142/63 94 L Intake and Output 12/16/16 12/17/16 12/17/16 22:59 06:59 14:59 Intake Total 480 Output Total 290 1255 Balance -290 -1255 480 Intake: Oral 480 Output: Drainage 140 55 Left Shoulder 140 55 Urine 150 1200 Straight 600 Other: # Voids 0 # Bowel Movements 1 Weight 111.584 kg PHYSICAL EXAMINATION: GENERAL: The patient is alert and oriented x3, not in any acute distress. Well developed, well nourished. HEENT: Pupils are round and equally reacting to light. EOMI. No scleral icterus. No conjunctival pallor. Normocephalic, atraumatic. No pharyngeal erythema. No thyromegaly. CARDIOVASCULAR: S1 and S2 present. No murmurs, rubs, or gallops. PULMONARY: Chest is clear to auscultation, no wheezing or crackles. ABDOMEN: Soft, nontender, nondistended, normoactive bowel sounds. No palpable organomegaly. MUSCULOSKELETAL: Deferred to primary service EXTREMITIES: No cyanosis, clubbing, or pedal edema. NEUROLOGICAL: Gross neurological examination did not reveal any focal deficits. SKIN: No rashes. Results CBC & Chem 7: 12/16/16 15:43 Labs: Abnormal Lab Results - Last 24 Hours (Table) 12/16/16 Range/Units 15:43 WBC 16.1 H (3.8-10.6) k/uL RBC 4.14 L (4.30-5.90) m/uL Hgb 12.8 L (13.0-17.5) gm/dL Hct 37.3 L (39.0-53.0) % Neutrophils # 14.1 H (1.3-7.7) k/uL Assessment and Plan Plan: #1 leukocytosis without any signs or symptoms of infection no further intervention or workup is necessary. Patient is okay to discharge from medical perspective 2 hypertension continue with lisinopril upon discharge. Left shoulder orthoplasty pain management as per primary service. #3 obesity with possible sleep apnea patient will need outpatient sleep study. #4 gastroesophageal reflux disease #5 benign prostatic hypertrophy . 6 hyperlipidemia
== END 2016-12-17 13:59 | disposition home or self-care (01) | DRG 483 ==
LOC: 2ORMAIN 09:18 → 3SUR 14:00
PROVIDERS: ADMIT Orthopaedic Surgery Sports Medicine; ATTEND Orthopaedic Surgery Sports Medicine
PROC: 0RRK00Z Replacement of Left Shoulder Joint with Reverse Ball and Socket Synthetic Substitute, Open Approach (ICD-10-PCS; principal; 2016-12-16 11:00)
DX: M19.012 Primary osteoarthritis, left shoulder (principal); I10 Essential (primary) hypertension; M75.102 Unspecified rotator cuff tear or rupture of left shoulder, not specified as traumatic; E78.5 Hyperlipidemia, unspecified; K21.9 Gastro-esophageal reflux disease without esophagitis; N40.0 Benign prostatic hyperplasia without lower urinary tract symptoms; F17.200 Nicotine dependence, unspecified, uncomplicated; B19.20 Unspecified viral hepatitis C without hepatic coma; M19.91 Primary osteoarthritis, unspecified site; I83.90 Asymptomatic varicose veins of unspecified lower extremity; Z98.1 Arthrodesis status; Z86.14 Personal history of Methicillin resistant Staphylococcus aureus infection; Z90.49 Acquired absence of other specified parts of digestive tract; Z79.899 Other long term (current) drug therapy
CPT/HCPCS: 64415; 85025; 88300; 94760

== ENCOUNTER → 2017-04-13 | Outpatient (CLI) | payer MEDICARE, OTHER ==
[2017-04-13 10:37] LABS: CH 29.8; CHCM 31.8; HCT 44.4 % (39.0-53.0); HDW 2.54; HGB 14.3 gm/dL (13.0-17.5); MCH 30.3 pg (25.0-35.0); MCHC 32.1 g/dL (31.0-37.0); MCV 94.2 fL (80.0-100.0); Mean Platelet Volume 7.7; RBC 4.71 m/uL (4.30-5.90); RDW 15.2 % (11.5-15.5); WBC 10.7 k/uL (3.8-10.6)
[2017-04-13 10:47] LABS: INR 1.3 (<1.2); Prothrombin Time 12.7 sec (9.0-12.0)
[2017-04-13 10:57] LABS: ALT 38 U/L (21-72); AST 23 U/L (17-59); Alkaline Phosphatase 106 U/L (38-126); Anion Gap 11 mmol/L; Blood Urea Nitrogen 12 mg/dL (9-20); Calcium 9.4 mg/dL (8.4-10.2); Carbon Dioxide 19 mmol/L (22-30); Chloride 108 mmol/L (98-107); Glucose 103 mg/dL (74-99); Non-African American GFR(MDRD) >60 (>60 ml/min/1.73 sqM); Potassium 4.7 mmol/L (3.5-5.1); Sodium 138 mmol/L (137-145); Total Bilirubin 0.8 mg/dL (0.2-1.3); Total Protein 7.8 g/dL (6.3-8.2)
== END ==
LOC: LABPAT 09:56
PROVIDERS: ATTEND Orthopaedic Surgery Sports Medicine
DX: Z01.818 Encounter for other preprocedural examination (principal)
CPT/HCPCS: 36415; 80053; 85027; 85610; 85730; 87070

== ENCOUNTER 2017-04-21 10:12 | Inpatient (IN) | payer MEDICARE, OTHER ==
[2017-04-15 11:27] VITALS: BMI 32.1
[~2017-04-21 10:12] MED LIST changes: +DEXAMETHASONE SOD PHOSPHATE 10 MG/ML 1 ML VIAL IV ONE; +HYDROmorphone 0.5 MG/0.5 ML SYRINGE IVP PRN; -HYDROmorphone 1 MG/ML 1 ML SYRINGE IVP PRN; -LACTATED RINGERS 1,000 ML IV SCH; -LIDOCAINE 1% 20 ML VIAL (10MG/ML) FOR IV START INTRADERMA PRN; -SCOPOLAMINE 1.5MG/72HR PATCH TRANSDERM ONE; -ceFAZolin 2 GM in SODIUM CHLORIDE 0.9% 100 ML IVPB ONE; +ceFAZolin IN SWFI 2 GM/20 ML SYRINGE IVP ONE; -fentaNYL (PF) 50 MCG/ML 20 ML VIAL IVP PRN
[2017-04-21] MEDS ORDERED: LIDOCAINE 1% 20 ML VIAL (10MG/ML) FOR IV START INTRADERMA ONE (11:10)
[2017-04-21] MEDS: LACTATED RINGERS 1,000 ML IV SCH ×2 (11:17→19:51)
[2017-04-21] MEDS ORDERED: ePHEDrine SULFATE/0.9% NACL/PF 50 MG/5 ML SYRINGE IV ONE (11:56)
[2017-04-21] MEDS ORDERED: SODIUM CHLORIDE 0.9% 100 ML BAG ONE (11:56)
[2017-04-21] MEDS ORDERED: MORPHINE SULFATE (PF) 0.3 MG/0.3 ML SYR ONE (11:56)
[2017-04-21] MEDS ORDERED: PROPOFOL 10 MG/ML 20 ML VIAL IV ONE (11:56)
[2017-04-21] MEDS ORDERED: TRANEXAMIC ACID 1,000 MG/10 ML VIAL ONE (11:56)
[2017-04-21] MEDS ORDERED: fentaNYL (PF) 50 MCG/ML 2 ML AMP ONE (11:56)
[2017-04-21] MEDS ORDERED: diphenhydrAMINE 50 MG/ML 1 ML VIAL ONE (11:56)
[2017-04-21] MEDS ORDERED: MIDAZOLAM 2 MG/2 ML VIAL ONE (11:56)
[2017-04-21] MEDS ORDERED: ceFAZolin 3,000 MG in SODIUM CHLORIDE 0.9% IRRIGATIO 3,000 ML IRRIGATION ONE (12:46)
[2017-04-21] MEDS ORDERED: ROPIVACAINE 246.25 MG, EPINEPHrine 0.5 MG, KETOROLAC 30 MG, cloNIDine HCL/PF 80 MCG, WA... MISCELLANE ONE ×5 (12:51)
[2017-04-21] MEDS ORDERED: LACTATED RINGERS 1,000 ML IV ONE (13:32)
[2017-04-21] MEDS ORDERED: ONDANSETRON 4 MG/2 ML VIAL IVP PRN (14:08)
[2017-04-21] MEDS ORDERED: NA PHOS,M-B/NA PHOS,DI-BA 133 ML ENEMA RECTAL PRN (14:08)
[2017-04-21] MEDS ORDERED: TEMAZEPAM 15 MG CAP PO PRN (14:08)
[2017-04-21] MEDS ORDERED: HYDROmorphone 0.5 MG/0.5 ML SYRINGE IVP PRN ×2 (14:08)
[2017-04-21] MEDS ORDERED: ACETAMINOPHEN TAB 325 MG TAB PO PRN (14:08)
[2017-04-21] MEDS ORDERED: hydrOXYzine PAMOATE 25 MG CAP PO PRN (14:08)
[2017-04-21] MEDS ORDERED: NALOXONE 0.4 MG/ML 1 ML VIAL IV PRN ×2 (14:08→19:05)
[2017-04-21] MEDS ORDERED: HYDROmorphone 2 MG/ML 1 ML SYRINGE IVP PRN (14:08)
[2017-04-21] MEDS ORDERED: MAGNESIUM HYDROXIDE 2,400 MG/10 ML CUP PO PRN (14:08)
[2017-04-21] MEDS ORDERED: DIAZEPAM 5 MG TAB PO PRN (14:08)
[2017-04-21] MEDS ORDERED: BISACODYL 10 MG SUPP RECTAL PRN (14:08)
[2017-04-21] MEDS ORDERED: HYDROcodone/APAP 10-325MG 1 EACH TAB PO PRN ×2 (14:08)
--- NOTE | 2017-04-21 14:58 | XR ---
Left knee HISTORY: Status post left knee arthroplasty 2 views of the left knee Patient is status post left knee arthroplasty. There is anatomic alignment. Lucency in the soft tissu es is compatible with postop state. IMPRESSION: Status post left knee arthroplasty.
--- NOTE | 2017-04-21 15:04 | OP ---
OPERATIVE REPORT DATE OF PROCEDURE: 04/21/2017. SURGEON: Ilya Blackburn MD. ANTISQUEAK FILLER: MEGAN Rodriguez. PREOPERATIVE DIAGNOSIS: Left knee osteoarthrosis. POSTOPERATIVE DIAGNOSIS: Left knee osteoarthrosis. OPERATION: Left total knee arthroplasty. ANESTHESIA: Was spinal with sedation. ESTIMATED BLOOD LOSS: Was 100 mL. TOURNIQUET TIME: 57 minutes at 250 mmHg. COMPLICATIONS: None apparent. DRAINS: None. DISPOSITION: Postanesthesia care unit. INDICATIONS: Agustin is a very pleasant, 62-year-old male with longstanding left knee pain. History and physical examination are consist with advanced left knee osteoarthrosis. He has been through fairly significant course of nonoperative management up to this point. Further treatment options were discussed and he has decided to go for the left total knee arthroplasty. The risks of procedure were discussed with him in detail. These risks include, but are not limited to, risk of infection, nerve damage, bleeding, pain, and a small risk of deep vein thrombosis which could lead to fatal pulmonary embolism. There is also risk of loosening of the implant which could require revision operation. The patient understands these risks. All of his questions were answered to his satisfaction. An appropriate informed consent was obtained. PROCEDURE: The patient identified in preoperative holding area. Surgical sites marked by both the patient myself. He was given 2 g of Ancef IV for prophylactic purposes. He was then transferred to the operative suite, was placed supine on the operative table. Spinal anesthetic was then administered dosed per the Anesthesia Department without apparent complication. Examination under anesthesia was then performed. He was 2-3 degrees shy of full extension. He had 100 degrees of flexion in the medial collateral ligament. Lateral collateral ligament and posterior cruciate ligaments were stable. Tourniquet was then placed high on the left upper thigh well-padded in preparation for surgery. The patient's left lower extremity was then prepped and draped in usual sterile fashion. Standard surgical pause then undertaken to ensure that we were operating on the correct site and that appropriate preoperative antibiotics were given. All staff in the room in agreement and we proceeded. The outlines of the patella were marked surgical pen. A planned 12 cm vertical incision centered over the patella was marked surgical pen. Leg was then exsanguinated with an Esmarch dressing. The knee was then flexed and the tourniquet was inflated to 250 mmHg. The total tourniquet time for the procedure was 57 minutes. Incision was then made with a 10 blade scalpel. Dissection was carried down sharply to the overlying fascia. Great care was taken to minimize the skin flaps. The knee was then exposed using a standard medial parapatellar approach. A small cuff of quadriceps tendon was left for suturing. He was in a bit of varus preoperatively. A standard medial release was then made. Superficial medial collateral ligament was dissected off of the bone around the posterior aspect of the proximal tibia. The medial meniscus was then excised as well. The lateral meniscus was also released anteriorly. The leg was then extra externally rotated. The patella was everted. The knee was flexed. The retractors were placed to protect the collateral ligaments. I then proceeded to remove the infrapatellar fat pad. This was excised sharply tangentially with the fibers of the of the patellar tendon. I then proceeded to remove peripheral osteophytes. This was done with a rongeur. I then proceeded with the distal femoral resection. He did have near full extension. A planned 9 mm resection was then done. The femoral canal was then entered in the midline of the femur approximately 10 mm anterior to the origin of the posterior cruciate ligament. The tianna was then advanced down the center of the femur and placed intramedullary. Based on preop radiographs the angle between the anatomic and mechanical axis of the femur was approximately 4-5 degrees. The valgus angle of the distal femoral cutting guide was then set at 4 degrees for the left knee. This femoral cutting guide was then advanced over the intramedullary tianna. This seated firmly against the femur. I then as mentioned planned to take 9 mm off the distal femur. The cutting block was then secured onto the femur with pins. The jig was then removed. The distal femoral cut was made through the slot of the block. The pins were then removed. The distal femoral cutting block was removed. The accuracy of the distal femoral cuts was checked with 2 flat bars. I then proceeded to femoral sizing. The posterior referencing sizing guide was held firmly against the resected distal surface of the femur. The posterior condyles were resting on the posterior plane of the guide. The sizing stylus was then placed onto the anterior femur. The size was measured as a size 9. I then assessed for femoral rotation. Plan was for 3 degrees of external rotation. 3 degrees of external rotation was placed onto the jig. These holes were then marked. Then confirmed the rotation by 3 separate methods. This is done using epicondylar axis as well as Whitesides line and posterior referencing. It was deemed that the external rotation was proper. I then went forward with placing the femoral cutting block. This was placed over the previously placed pin holes. The Servando wing was then placed onto the anterior slots to ensure that we would not notch the anterior femur. With the anterior femoral cut. I then proceed with the anterior femoral cut. This was flush with the anterior cortex of the femur. Posterior cuts were then made followed by the anterior chamfer cut, then the posterior chamfer cut. The cutting block was then removed. Throughout the resection the collateral ligaments were protected with retractors. I then placed a trial size 9 femur. It fit very nicely medial-lateral and fit flush with the distal end of the femur. The drill holes were then made. I then proceeded with the tibial cutter. Planned for cruciate retaining knee. The guide was then placed and set for varus valgus and for slope. The height was set for approximate 2 mm resection from the medial tibial plateau which was the lower side. I was happy with the alignment and amount of resection. The cutting block was then pinned to the proximal tibia. The alignment tianna was removed. The proximal tibia was resected with a reciprocating saw. Again this was done with retractors protecting the collateral ligaments as well as the posterior cruciate ligament. I then proceeded to evaluate the flexion and extension gaps. A 10 mm block was then placed. The flexion-extension gaps were equal. I then proceeded with resection of posterior osteophytes. He had very minimal posterior osteophytes. This was done using a curved osteotome. This resected the posterior osteophytes and posterior capsule stripping was also done off the posterior aspect of the femur at this time. The osteophytes were then removed. I then proceed to resection of patella. The thickness of patella was measured using the caliper. The thickness was 26 mm. The thickness of the anticipated patellar dome was then taken into account. Resection was then performed and confirmed to be equal in 4 quadrants using a caliper. Approximately 14 mm of bone remained after the resection. A 35 x 9 mm standard patellar trial was then placed. The wrist holes were then drilled. The trial was then placed. I then proceeded with sizing the tibial plate. A size G tibial plate fit very nicely. I then placed the trial femur the tibial tray and patellar button. A 10 mm trial tibial insert was also placed. The components fit very nicely. He had full flexion extension. Extension flexion gaps were equal and stable to both varus and valgus stress. The patella tracked appropriately. The tibial tray rotation was marked with a Bovie. This was externally rotated properly. I then proceed with tibial preparation. I first drilled the femoral holes and removed femoral component. The tibial tray was then set for proper external rotation, as well as mediolateral placement onto the tibia. It was then pinned into place. I then proceeded with punching the keel. I then decided to proceed with cementing of all of our components. The knee was thoroughly irrigated with sterile saline solution via pulse lavage. The lateral geniculate artery was identified and cauterized. All blood was removed from the bone of the tibia femur and patella with pulse lavage. I then proceed with cementing. Two packs of antibiotic bone cement were prepared on the back table by the surgical attendant. I then proceed with cementing the tibia first. The cement was impacted into the keel as well as deeply seated into the bone. A 2nd coat of cement was then placed. The tibia was then impacted into place. Excess cement was removed with [place]'s and jokers. I then proceed with cementing of the femoral component. Femoral component was also cemented using standard technique. Excess cement was removed. A 10 mm trial insert was then placed into the knee. It was brought into full extension with a constant axial load placed until the cement hardened. The patellar component was then cemented. This was held firmly with a compressive device until the cement dried. When the cement had dried, the knee was taken out of extension. All excess cement was removed from around the prosthesis. I then trialed the knee with a 10 mm insert. Flexion extension gaps were appropriate. I then trialed with a 12 mm insert. The flexion-extension gaps felt much better. The knee was stable with a 12 mm insert. Came into full extension. Decided to go for the 12 mm cross-linked cruciate-retaining tibial insert. Polyethylene was then placed onto the tray and locked into place. The knee was then reduced. The knee was again thoroughly further irrigated with sterile saline solution with antibiotic added. The tourniquet was then deflated. The total tourniquet time for the procedure was 57 minutes at 250 mmHg. Final components were Dean persona size 9 cruciate-retaining femoral component, a size G tibial tray, a 12 mm medial congruent cruciate-retaining polyethylene insert, and a 35 x 9 mm patella. I then proceeded with closure. Again, the knee was thoroughly irrigated. The quadriceps tendon and the medial retinaculum were reapproximated with a #2 Ethibond suture. The extensor mechanism was then closed with a running #2 Quill suture. Subcutaneous tissues were then closed with 2-0 Vicryl interrupted suture. The skin was closed with a running 3-0 Quill suture. Dermabond was applied to the incision. Sterile compressive dressings were then applied. All sponge, needle counts were deemed correct prior to closure. The patient tolerated the procedure apparent complication. He was transferred recovery room in stable condition. MMODL / IJN: [id number] /
[2017-04-21] MEDS ORDERED: PANTOPRAZOLE 40 MG TABLET PO PRN (15:19)
--- NOTE | 2017-04-21 16:08 | P.CONS ---
History of Present Illness - Reason for Consult Reconditions regarding hypertension, BPH - History of Present Illness Patient was admitted for elective left knee arthroplasty patient successfully underwent surgery clinically doing well denied any pain in the left knee area patient denied any nausea, vomiting, abdominal pain, dysuria, cough. Patient did not pass gas yet. Review of Systems REVIEW OF SYSTEMS: CONSTITUTIONAL: No fever, no malaise, no fatigue. HEENT: No recent visual problems or hearing problems. Denied any sore throat. CARDIOVASCULAR: No chest pain, orthopnea, PND, no palpitations, no syncope. PULMONARY: No shortness of breath, no cough, no hemoptysis. GASTROINTESTINAL: No diarrhea, no nausea, no vomiting, no abdominal pain. Normoactive bowel sounds. NEUROLOGICAL: No headaches, no weakness, no numbness. HEMATOLOGICAL: Denies any bleeding or petechiae. GENITOURINARY: Denies any burning micturition, frequency, or urgency. MUSCULOSKELETAL/RHEUMATOLOGICAL: Denies any joint pain, swelling, or any muscle pain. ENDOCRINE: Denies any polyuria or polydipsia. The rest of the 14-point review of systems is negative. Past Medical History Past Medical History: GERD/Reflux, Hyperlipidemia, Hypertension, Liver Disease, Osteoarthritis (OA), Prostate Disorder Additional Past Medical History / Comment(s): CHRONIC BACK PAIN, enlarged prostate, hx Hepatitis C in 2012, resolved now. History of Any Multi-Drug Resistant Organisms: MRSA Year Discovered:: 2012 MDRO Source:: SKIN "on whole body" Past Surgical History: Cholecystectomy, Joint Replacement Additional Past Surgical History / Comment(s): CERVICAL SURGERY, FATTY TUMOR REMOVED, LEFT HAND SURGERY. Left total shoulder. Past Anesthesia/Blood Transfusion Reactions: No Reported Reaction Past Psychological History: Depression Smoking Status: Current every day smoker Past Alcohol Use History: None Reported Additional Past Alcohol Use History / Comment(s): HAS BEEN SMOKING FOR 30 YRS OR MORE, DOWN TO 1/2 PPD FROM 1 PPD. Past Drug Use History: None Reported - Past Family History Mother Family Medical History: No Reported History Medications and Allergies Home Medications Medication Instructions Recorded Confirmed Type Atorvastatin [Lipitor] 40 mg PO DAILY 12/10/16 04/21/17 History Citalopram Hydrobromide [CeleXA] 20 mg PO DAILY 12/10/16 04/21/17 History Diclofenac Sodium [Voltaren] 25 mg PO BID PRN 12/10/16 04/21/17 History Lisinopril [Zestril] 10 mg PO DAILY 12/10/16 04/21/17 History Omeprazole [PriLOSEC] 20 mg PO AC-BRKFST PRN 12/10/16 04/21/17 History Tamsulosin HCl [Flomax] 0.4 mg PO DAILY 12/10/16 04/21/17 History Aspirin 325 mg PO DAILY #30 tab 12/17/16 04/21/17 Rx Docusate [Colace] 100 mg PO BID #60 capsule 12/17/16 04/21/17 Rx HYDROcodone/APAP 5-325MG [[place] 1 tab PO Q4HR PRN 04/15/17 04/21/17 History 5-325] Allergies Allergy/AdvReac Type Severity Reaction Status Date / Time tramadol Allergy Unknown Rash/Hives Verified 04/21/17 10:57 bupropion [From Wellbutrin] AdvReac Unknown STATES IT Verified 04/21/17 10:57 MADE HIM ANGRY Physical Exam Vitals: Vital Signs Temp Pulse Resp BP Pulse Ox 04/21/17 15:54 64 16 04/21/17 14:45 64 16 115/55 97 04/21/17 14:30 56 L 16 112/55 99 04/21/17 14:13 97.3 F L 64 14 110/52 95 04/21/17 11:22 97.9 F 84 18 186/94 97 Intake and Output 04/21/17 04/21/17 04/21/17 06:59 14:59 22:59 Intake Total 1151 Output Total 100 Balance 1051 Intake: IV 1151 Output: Estimated Blood Loss 100 Other: Weight 104.326 kg Patient Weight 04/22/17 06:59 Weight 104.326 kg PHYSICAL EXAMINATION: GENERAL: The patient is alert and oriented x3, not in any acute distress. Obese HEENT: Pupils are round and equally reacting to light. EOMI. No scleral icterus. No conjunctival pallor. Normocephalic, atraumatic. No pharyngeal erythema. No thyromegaly. CARDIOVASCULAR: S1 and S2 present. No murmurs, rubs, or gallops. PULMONARY: Chest is clear to auscultation, no wheezing or crackles. ABDOMEN: Soft, nontender, nondistended, normoactive bowel sounds. No palpable organomegaly. MUSCULOSKELETAL: Deferred to orthopedic surgery EXTREMITIES: No cyanosis, clubbing, or pedal edema. NEUROLOGICAL: Gross neurological examination did not reveal any focal deficits. SKIN: No rashes. Assessment and Plan Plan: 1 postoperative day 0: Pain management and DVT prophylaxis as per orthopedic surgery. #2 hypertension: To prevent perioperative hypotension which is very common will hold off on lisinopril. #3 benign prostatic hypertrophy #4 gastro-esophageal reflux disease #5 depression #6 hyperlipidemia For above-mentioned chronic medical problems patient will be continued on appropriate home medications medication reconciliation was done. We'll continue to follow the patient on as-needed basis.
[2017-04-21] MEDS ORDERED: diphenhydrAMINE 50 MG/ML 1 ML VIAL IVP PRN (19:05)
[2017-04-21] MEDS: DOCUSATE 100 MG CAP PO SCH (19:52)
[2017-04-21] MEDS: MORPHINE SULFATE 4 MG/ML SYRINGE IVP PRN (20:00)
[2017-04-21] MEDS: ceFAZolin IN SWFI 2 GM/20 ML SYRINGE IVP SCH (20:00)
[2017-04-21] MEDS: ASPIRIN 325 MG TAB PO SCH (20:10)
[2017-04-21] MEDS ORDERED: SENNOSIDES-DOCUSATE SODIUM 1 EACH TAB PO SCH (21:00)
[2017-04-22] MEDS ORDERED: TAMSULOSIN 0.4 MG CAP.ER.24H PO STA (00:08)
[2017-04-22] MEDS: MORPHINE SULFATE 4 MG/ML SYRINGE IVP PRN ×2 (00:21→04:15)
[2017-04-22 01:36] VITALS: PULSE 67
[2017-04-22] MEDS: LACTATED RINGERS 1,000 ML IV SCH ×2 (02:32→05:29)
[2017-04-22] MEDS: ceFAZolin IN SWFI 2 GM/20 ML SYRINGE IVP SCH (04:25)
--- NOTE | 2017-04-22 06:56 | P.PN ---
Progress Note - Text Progress Note Date: 04/22/17 Postoperative day 1 status post , total knee arthroplasty , under spinal anesthesia, and intrathecal morphine given for postoperative analgesia, patient doing well, has some localized incisional pain ,there is no anesthesia related complications, further management as per her primary team
[2017-04-22 07:15] VITALS: BP 124/65; TEMP 98.2
[2017-04-22 07:29] LABS: Basophils % (A) 0 %; CH 30.8; Eosinophils % (A) 0 %; HDW 2.59; Luc # (Auto) 0.18; Luc % (Auto) 1; Lymphocytes # (A) 1.2 k/uL (1.0-4.8); Lymphocytes % (A) 6 %; MCH 30.5 pg (25.0-35.0); MCHC 32.4 g/dL (31.0-37.0); MCV 93.9 fL (80.0-100.0); Mean Platelet Volume 7.8; Monocytes # (A) 0.8 k/uL (0-1.0); Monocytes % (A) 4 %; Neutrophils # (A) 16.7 k/uL (1.3-7.7); Neutrophils % (A) 88 %; RBC 3.94 m/uL (4.30-5.90); RDW 13.6 % (11.5-15.5)
[2017-04-22] MEDS: ASPIRIN 325 MG TAB PO SCH (08:26)
[2017-04-22] MEDS: DOCUSATE 100 MG CAP PO SCH (08:27)
[2017-04-22] MEDS ORDERED: TAMSULOSIN 0.4 MG CAP.ER.24H PO SCH (09:00)
[2017-04-22] MEDS ORDERED: CITALOPRAM HYDROBROMIDE 20 MG TAB PO SCH (09:00)
[2017-04-22] MEDS ORDERED: ATORVASTATIN 40 MG TAB PO SCH (09:00)
[2017-04-22] MEDS ORDERED: MULTIVITAMINS, THERA 1 EACH TAB PO SCH (12:00)
[2017-04-22 12:52] VITALS: RESP 16
--- NOTE | 2017-06-22 11:06 | P.DS ---
Providers Date of admission: 04/21/17 10:12 Expected date of discharge: 04/21/17 Attending physician: Ilya Blackburn Consults: 04/21/17 14:08 Consult Physician Routine Consulting Provider: Darek Haile Consult Reason/Comments: post op medical management Do you want consulting provider notified?: Yes Primary care physician: Marina Marques - Discharge Diagnosis(es) (1) Status post total knee replacement, left Patient was admitted to the OR on 04/21/17 to undergo left total knee arthroplasty. He had failed conservative measures as an outpatient and desired to proceed with elective surgery after given informed consent. He underwent the above procedure which he tolerated well without complication. Postoperative hospital course has remained without complication. On day of discharge he is afebrile, vital signs stable, labs within acceptable ranges, tolerating by mouth meds and diet, voiding without difficulty, positive flatus, denies abdominal pain or calf pain, pain is controlled on oral pain medication and has no new complaints. Wound is benign, neurovascular status is intact, calf is soft and nontender, abdomen soft and nontender. Review of systems is negative for numbness, tingling, fever, chills, chest pain, shortness breath, nausea, vomiting, dizziness, headaches, slurred speech or other. Status: Acute Priority: Medium Procedures: Left TKA Patient Condition at Discharge: Good Plan - Discharge Summary Discharge Rx Participant: Yes New Discharge Prescriptions: New Aspirin 325 mg PO BID #60 tab Docusate [Colace] 100 mg PO BID #60 capsule HYDROcodone/APAP 10-325MG [[place] 10-325] 1 tab PO Q4HR PRN #60 tab PRN Reason: Pain No Action Diclofenac Sodium [Voltaren] 25 mg PO BID PRN PRN Reason: Pain Citalopram Hydrobromide [CeleXA] 20 mg PO DAILY Tamsulosin HCl [Flomax] 0.4 mg PO DAILY Omeprazole [PriLOSEC] 20 mg PO AC-BRKFST PRN PRN Reason: Indigestion Lisinopril [Zestril] 10 mg PO DAILY Atorvastatin [Lipitor] 40 mg PO DAILY Aspirin 325 mg PO DAILY #30 tab Docusate [Colace] 100 mg PO BID #60 capsule HYDROcodone/APAP 5-325MG [[place] 5-325] 1 tab PO Q4HR PRN PRN Reason: Pain Discharge Medication List Atorvastatin [Lipitor] 40 mg PO DAILY 12/10/16 [History] Citalopram Hydrobromide [CeleXA] 20 mg PO DAILY 12/10/16 [History] Diclofenac Sodium [Voltaren] 25 mg PO BID PRN 12/10/16 [History] Lisinopril [Zestril] 10 mg PO DAILY 12/10/16 [History] Omeprazole [PriLOSEC] 20 mg PO AC-BRKFST PRN 12/10/16 [History] Tamsulosin HCl [Flomax] 0.4 mg PO DAILY 12/10/16 [History] Aspirin 325 mg PO DAILY #30 tab 12/17/16 [Rx] Docusate [Colace] 100 mg PO BID #60 capsule 12/17/16 [Rx] HYDROcodone/APAP 5-325MG [[place] 5-325] 1 tab PO Q4HR PRN 04/15/17 [History] Aspirin 325 mg PO BID #60 tab 04/22/17 [Rx] Docusate [Colace] 100 mg PO BID #60 capsule 04/22/17 [Rx] HYDROcodone/APAP 10-325MG [[place] 10-325] 1 tab PO Q4HR PRN #60 tab 04/22/17 [Rx] Follow up Appointment(s)/Referral(s): [facility], [NON-STAFF] - As Needed Ilya Blackburn MD [STAFF PHYSICIAN] - 05/06/17 1:45 pm Activity/Diet/Wound Care/Special Instructions: Keep wound clean and dry Take meds as directed Follow-up with Dr. Blackburn in office Weight-bear as tolerated May shower in 72 hours Discharge Disposition: HOME WITH HOME HEALTH SERVICES
== END 2017-04-22 12:50 | disposition home health service (06) | DRG 470 ==
LOC: 2ORMAIN 10:12 → 3SUR 14:23
PROVIDERS: ADMIT Orthopaedic Surgery Sports Medicine; ATTEND Orthopaedic Surgery Sports Medicine
PROC: 0SRD0J9 Replacement of Left Knee Joint with Synthetic Substitute, Cemented, Open Approach (ICD-10-PCS; principal; 2017-04-21 12:00)
DX: M17.12 Unilateral primary osteoarthritis, left knee (principal); I10 Essential (primary) hypertension; E78.5 Hyperlipidemia, unspecified; Z82.49 Family history of ischemic heart disease and other diseases of the circulatory system; Z79.891 Long term (current) use of opiate analgesic; Z79.899 Other long term (current) drug therapy; Z83.3 Family history of diabetes mellitus; F17.200 Nicotine dependence, unspecified, uncomplicated; K21.9 Gastro-esophageal reflux disease without esophagitis; N40.0 Benign prostatic hyperplasia without lower urinary tract symptoms; Z79.82 Long term (current) use of aspirin
CPT/HCPCS: 85025; 88300; 93005

== ENCOUNTER 2019-11-27 14:22 | Emergency (ER) | payer MEDICARE, OTHER ==
[2019-11-27 14:30] VITALS: RESP 16; TEMP 98
--- NOTE | 2019-11-27 15:00 | ED ---
General Adult HPI - General Chief complaint: Altered Mental Status Stated complaint: Overdose Time Seen by Provider: 11/27/19 14:32 Source: patient, EMS, RN notes reviewed, old records reviewed Mode of arrival: EMS Limitations: no limitations - History of Present Illness Initial comments: 64-year-old male presenting for evaluation of suspected overdose. Patient is currently on Vicoprofen 7.5 mg. He had a prescription filled last week and was noted by EMS to have very few remaining pills. He was found unresponsive with agonal respirations. EMS of been called by his . He was given 2 mg of intravenous Narcan. He became alert with spontaneous respiration. He did vomit several times. Patient has no complaints at the time my evaluation. He does state that he has been taking this medication for pain. He denies suicidal or homicidal ideation. He is alert and oriented but somewhat slow to respond. - Related Data Home Medications Medication Instructions Recorded Confirmed Atorvastatin [Lipitor] 40 mg PO DAILY 12/10/16 11/27/19 Citalopram Hydrobromide [CeleXA] 20 mg PO DAILY 12/10/16 11/27/19 Diclofenac Sodium [Voltaren] 25 mg PO BID 12/10/16 11/27/19 Lisinopril [Zestril] 10 mg PO DAILY 12/10/16 11/27/19 Omeprazole [PriLOSEC] 20 mg PO DAILY 12/10/16 11/27/19 Tamsulosin HCl [Flomax] 0.4 mg PO DAILY 12/10/16 11/27/19 HYDROcodone/IBUPROFEN 7.5-200 1 tab PO BID 11/27/19 11/27/19 [Vicoprofen 7.5-200 mg] Allergies Allergy/AdvReac Type Severity Reaction Status Date / Time tramadol Allergy Unknown Rash/Hives Verified 11/27/19 16:53 bupropion [From Wellbutrin] AdvReac Unknown STATES IT Verified 11/27/19 16:53 MADE HIM ANGRY Review of Systems ROS Statement: Those systems with pertinent positive or pertinent negative responses have been documented in the HPI. ROS Other: All systems not noted in ROS Statement are negative. Past Medical History Past Medical History: Hyperlipidemia, Hypertension Additional Past Medical History / Comment(s): BACK PAIN History of Any Multi-Drug Resistant Organisms: MRSA Date of last positivie culture/infection: 2013 MDRO Source:: SKIN Past Surgical History: Cholecystectomy Additional Past Surgical History / Comment(s): CERVICAL SURGERY, FATTY TUMOR REMOVED, LEFT HAND SURGERY Past Anesthesia/Blood Transfusion Reactions: No Reported Reaction Past Psychological History: Depression Smoking Status: Current every day smoker Past Alcohol Use History: None Reported Past Drug Use History: None Reported - Past Family History Mother Family Medical History: No Reported History General Exam Limitations: no limitations General appearance: alert, in no apparent distress Head exam: Present: atraumatic, normocephalic Eye exam: Present: normal appearance, PERRL ENT exam: Present: normal exam Neck exam: Present: normal inspection. Absent: tenderness, meningismus Respiratory exam: Present: normal lung sounds bilaterally. Absent: respiratory distress, wheezes, rales Cardiovascular Exam: Present: regular rate, normal rhythm GI/Abdominal exam: Present: soft. Absent: distended, tenderness, guarding, rebound Extremities exam: Present: normal inspection, normal capillary refill. Absent: pedal edema, calf tenderness Neurological exam: Present: alert, CN II-XII intact. Absent: motor sensory deficit Psychiatric exam: Present: normal affect, normal mood. Absent: homicidal ideation, suicidal ideation Skin exam: Present: warm, dry, intact. Absent: cyanosis, diaphoretic Course Vital Signs 11/27/19 14:24 Temperature 98.0 F Pulse Rate 98 Respiratory 16 Rate Blood Pressure 171/100 O2 Sat by Pulse 99 Oximetry - Reevaluation(s) Reevaluation #1: 11/27/19 15:57 Patient reevaluated, alert and oriented, no respiratory distress. is at bedside who states that he has been taking medication from family member and from the neighbor including [place] and morphine. Patient again denies any suicidal ideation. He states he has chronic pain. He is evaluated by EPS and given referral for substance abuse. Medical Decision Making - Medical Decision Making 64 yo male with overdose, on Vicoprofen, Vicodin, and morphine. 2 out of 3 of these medications are not prescribed to the patient. His altered mental status and apnea resolved with Narcan. He is observed in the emergency department for 3 hours. He does admit that he has been over taking his medication. His is at bedside. They're given referral to substance abuse and outpatient resources. He is not suicidal. He is alert and oriented 3 able to make his own decisions. He is eager for discharge. He can be closely observed at home for the next several hours. - Lab Data Lab Results 11/27/19 11/27/19 Range/Units 14:32 14:33 Urine Color Yellow Urine Appearance Clear (Clear) Urine pH 5.5 (5.0-8.0) Ur Specific [place] 1.015 (1.001-1.035) Urine Protein 1+ H (Negative) Urine Glucose (UA) Negative (Negative) Urine Ketones Negative (Negative) Urine Blood Trace H (Negative) Urine Nitrite Negative (Negative) Urine Bilirubin Negative (Negative) Urine Urobilinogen <2.0 (<2.0) mg/dL Ur Leukocyte Esterase Negative (Negative) Urine RBC 2 (0-5) /hpf Urine WBC 2 (0-5) /hpf Hyaline Casts 80 H (0-2) /lpf Urine Mucus Rare H (None) /hpf Urine Opiates Screen Detected H (NotDetected) Ur Oxycodone Screen Not Detected (NotDetected) Urine Methadone Screen Not Detected (NotDetected) Ur Propoxyphene Screen Not Detected (NotDetected) Ur Barbiturates Screen Not Detected (NotDetected) U Tricyclic Antidepress Not Detected (NotDetected) Ur Phencyclidine Scrn Not Detected (NotDetected) Ur Amphetamines Screen Not Detected (NotDetected) U Methamphetamines Scrn Not Detected (NotDetected) U Benzodiazepines Scrn Not Detected (NotDetected) Urine Cocaine Screen Not Detected (NotDetected) U Marijuana (THC) Screen Not Detected (NotDetected) Disposition Clinical Impression: Drug overdose, Opiate overdose Disposition: HOME SELF-CARE Condition: Fair Instructions (If sedation given, give patient instructions): Opioid Use Disorder (ED), Prescription Opioid Overdose (ED) Is patient prescribed a controlled substance at d/c from ED?: No Referrals: Marina Marques MD [Primary Care Provider] - 1-2 days Time of Disposition: 17:04
[2019-11-27 15:08] LABS: Appearance,Urine Clear (Clear); Bilirubin,Urine Negative (Negative); Blood,Urine Trace (Negative); Color,Urine Yellow; Glucose,Urine (UA) Negative (Negative); Hyaline Casts,Urine 80 /lpf (0-2); Ketones,Urine Negative (Negative); Leukocyte Esterase,Urine Negative (Negative); Mucus,Urine Rare /hpf; Nitrite,Urine Negative (Negative); PH, Urine 5.5 (5.0-8.0); Protein,Urine 1+ (Negative); RBC,Urine 2 /hpf (0-5); Specific Gravity,Urine 1.015 (1.001-1.035); Urobilinogen,Urine <2.0 mg/dL (<2.0); WBC,Urine 2 /hpf (0-5)
[2019-11-27 15:13] LABS: Amphetamine Screen,Urine Not Detected (NotDetected); Barbiturate Screen,Urine Not Detected (NotDetected); Benzodiazepines Screen,Urine Not Detected (NotDetected); Cocaine Screen,Urine Not Detected (NotDetected); Methadone Screen, Urine Not Detected (NotDetected); Opiate Screen,Urine Detected (NotDetected); Oxycodone Screen, Urine Not Detected (NotDetected); Phencyclidine Screen,Urine Not Detected (NotDetected); Tricyclic Antidepressant,Urine Not Detected (NotDetected); Urn Cannabinoid Scrn Not Detected (NotDetected)
[2019-11-27 17:09] VITALS: BP 132/79; PULSE 80
== END 2019-11-27 17:07 | disposition home or self-care (01) ==
LOC: EC 14:22
DX: T40.2X1A Poisoning by other opioids, accidental (unintentional), initial encounter (principal); E78.5 Hyperlipidemia, unspecified; I10 Essential (primary) hypertension; F32.9 Major depressive disorder, single episode, unspecified; F17.200 Nicotine dependence, unspecified, uncomplicated; Z79.899 Other long term (current) drug therapy; Z88.6 Allergy status to analgesic agent; Z88.8 Allergy status to other drugs, medicaments and biological substances
CPT/HCPCS: 80306; 81001; 99285

== ENCOUNTER 2019-11-28 13:06 | Inpatient (IN) | payer MEDICARE, OTHER ==
[2019-11-28] MEDS ORDERED: SODIUM CHLORIDE 0.9% 500 ML 500 ML IV ONE ×3 (13:52→15:49)
[2019-11-28] MEDS ORDERED: NALOXONE 0.4 MG/ML 1 ML VIAL IV STA (14:00)
--- NOTE | 2019-11-28 14:47 | ED ---
General Adult HPI - General Chief complaint: Neuro Symptoms/Deficit Stated complaint: recheck overdose yesterday Time Seen by Provider: 11/28/19 13:52 Source: patient, family, RN notes reviewed, old records reviewed Mode of arrival: wheelchair Limitations: altered mental status, physical limitation - History of Present Illness Initial comments: 64-year-old male presents for evaluation of altered mental status. Patient was seen in the emergency department yesterday by myself after an opiate overdose. He had received 2 mg of Narcan by EMS and had returned to her normal baseline. He was observed in the emergency department and discharged home. His was at bedside states that he has not had anything to eat or drink over the past 24 hours. He's been confused. She is fairly certain he has not had any additional narcotics. Upon arrival patient has pinpoint pupils, his agitated. Patient able to answer some questions, denying central chest pain, denying vomiting or diarrhea. Patient has generalized pain. - Related Data Home Medications Medication Instructions Recorded Confirmed Atorvastatin [Lipitor] 40 mg PO DAILY 12/10/16 11/28/19 Citalopram Hydrobromide [CeleXA] 20 mg PO DAILY 12/10/16 11/28/19 Diclofenac Sodium [Voltaren] 25 mg PO BID 12/10/16 11/28/19 Lisinopril [Zestril] 10 mg PO DAILY 12/10/16 11/28/19 Omeprazole [PriLOSEC] 20 mg PO DAILY 12/10/16 11/28/19 Tamsulosin HCl [Flomax] 0.4 mg PO BID 12/10/16 11/28/19 HYDROcodone/IBUPROFEN 7.5-200 1 tab PO BID PRN 11/27/19 11/28/19 [Vicoprofen 7.5-200 mg] Allergies Allergy/AdvReac Type Severity Reaction Status Date / Time tramadol Allergy Unknown Rash/Hives Verified 11/28/19 14:08 bupropion [From Wellbutrin] AdvReac Unknown STATES IT Verified 11/28/19 14:08 MADE HIM ANGRY Review of Systems ROS Statement: Those systems with pertinent positive or pertinent negative responses have been documented in the HPI. ROS Other: All systems not noted in ROS Statement are negative. Past Medical History Past Medical History: Hyperlipidemia, Hypertension Additional Past Medical History / Comment(s): BACK PAIN History of Any Multi-Drug Resistant Organisms: MRSA Date of last positivie culture/infection: 2012 MDRO Source:: SKIN Past Surgical History: Cholecystectomy Additional Past Surgical History / Comment(s): CERVICAL SURGERY, FATTY TUMOR REMOVED, LEFT HAND SURGERY Past Anesthesia/Blood Transfusion Reactions: No Reported Reaction Past Psychological History: Depression Smoking Status: Current every day smoker Past Alcohol Use History: None Reported Past Drug Use History: None Reported - Past Family History Mother Family Medical History: No Reported History General Exam Limitations: altered mental status, physical limitation General appearance: alert, anxious Head exam: Present: atraumatic, normocephalic Eye exam: Present: normal appearance. Absent: PERRL (Sluggish, pinpoint pupils) ENT exam: Present: mucous membranes dry Neck exam: Present: normal inspection. Absent: tenderness, meningismus Respiratory exam: Present: wheezes, decreased breath sounds. Absent: respiratory distress Cardiovascular Exam: Present: normal rhythm, tachycardia GI/Abdominal exam: Present: soft. Absent: distended, tenderness, guarding, rebound Extremities exam: Present: normal inspection, normal capillary refill. Absent: pedal edema Neurological exam: Present: alert. Absent: oriented X3 (2), motor sensory deficit (Patient moving all extremities symmetrically.) Psychiatric exam: Present: agitated, anxious Skin exam: Present: warm, dry, intact Course Vital Signs 11/28/19 11/28/19 11/28/19 13:31 15:03 15:30 Temperature 98 F Pulse Rate 64 98 Respiratory 22 15 18 Rate Blood Pressure 103/55 144/84 O2 Sat by Pulse 93 L 95 Oximetry 11/28/19 11/28/19 11/28/19 16:17 16:32 16:37 Temperature Pulse Rate 101 H 105 H 100 Respiratory 18 Rate Blood Pressure 145/84 O2 Sat by Pulse 94 L Oximetry EKG Findings - EKG Comments: EKG Findings:: EKG: Sinus rhythm, rate of 80, SC interval 158, QRS duration 114, QTC 454, no ST segment elevation, T-wave inversion and Q waves in the inferior leads. Medical Decision Making - Medical Decision Making 64-year-old presenting altered mental status, agitated. Nonfocal neurologic exam. There is suspicion for opiate overuse over the past several days. Did give this patient 1 mg of Narcan with improvement in both pupil a reflex and his mental status. His states he has not been eating or drinking. He has significant lab abnormalities, leukocytosis, hemoglobin 11. He has significantly elevated potassium at 7.0, creatinine of 7.8 with no history of kidney disease representing acute renal failure. I suspect his mental status may be secondary to uremia. He has a troponin of 4.[address] segment elevation on EKG and previous Q waves. I did discuss this with cardiology Dr. Newton, we will trend enzymes at this time given the patient's significant other health issues. I discussed case with Dr. Alvarez recommends usual treatment of hyperkalemia and acute renal failure. Khan is placed in the emergency department he is started on a bicarb drip. I discussed case with the admitting physician Dr. Javier who will accept admission. I discussed case with Dr. Keller who will accept this patient to the ICU for close monitoring. Diagnosis: Acute renal failure, hyperkalemia, uremic encephalopathy, drug overdose, troponin elevation. - Lab Data Result diagrams: 11/28/19 14:57 11/28/19 14:57 Lab Results 11/28/19 11/28/19 11/28/19 Range/Units 14:40 14:57 14:57 WBC 14.0 H (3.8-10.6) k/uL RBC 3.41 L (4.30-5.90) m/uL Hgb 11.0 L (13.0-17.5) gm/dL Hct 34.2 L (39.0-53.0) % MCV 100.3 H (80.0-100.0) fL MCH 32.4 (25.0-35.0) pg MCHC 32.2 (31.0-37.0) g/dL RDW 14.5 (11.5-15.5) % Plt Count 177 (150-450) k/uL Neutrophils % 81 % Lymphocytes % 7 % Monocytes % 8 % Eosinophils % 2 % Basophils % 0 % Neutrophils # 11.4 H (1.3-7.7) k/uL Lymphocytes # 0.9 L (1.0-4.8) k/uL Monocytes # 1.2 H (0-1.0) k/uL Eosinophils # 0.2 (0-0.7) k/uL Basophils # 0.0 (0-0.2) k/uL Hypochromasia Moderate Macrocytosis Slight PT (9.0-12.0) sec INR (<1.2) APTT (22.0-30.0) sec VBG pH (7.31-7.41) VBG pCO2 (37-51) mmHg VBG HCO3 (24-28) mmol/L Sodium 139 (137-145) mmol/L Potassium 7.0 H* (3.5-5.1) mmol/L Chloride 111 H (98-107) mmol/L Carbon Dioxide 11 L (22-30) mmol/L Anion Gap 17 mmol/L BUN 95 H (9-20) mg/dL Creatinine 7.81 H* (0.66-1.25) mg/dL Est GFR (CKD-EPI)AfAm 8 (>60 ml/min/1.73 sqM) Est GFR (CKD-EPI)NonAf 7 (>60 ml/min/1.73 sqM) Glucose 96 (74-99) mg/dL Plasma Lactic Acid Ronnie (0.7-2.0) mmol/L Calcium 8.7 (8.4-10.2) mg/dL Magnesium 2.5 H (1.6-2.3) mg/dL Total Bilirubin 1.0 (0.2-1.3) mg/dL AST 51 (17-59) U/L ALT 20 (4-49) U/L Alkaline Phosphatase 114 (38-126) U/L Ammonia (<30) umol/L Troponin I (0.000-0.034) ng/mL Total Protein 7.1 (6.3-8.2) g/dL Albumin 4.0 (3.5-5.0) g/dL Urine Color Yellow Urine Appearance Cloudy (Clear) Urine pH 5.5 (5.0-8.0) Ur Specific [place] 1.015 (1.001-1.035) Urine Protein 1+ H (Negative) Urine Glucose (UA) Negative (Negative) Urine Ketones Negative (Negative) Urine Blood Negative (Negative) Urine Nitrite Negative (Negative) Urine Bilirubin Negative (Negative) Urine Urobilinogen <2.0 (<2.0) mg/dL Ur Leukocyte Esterase Negative (Negative) Urine RBC 4 (0-5) /hpf Urine WBC 3 (0-5) /hpf Ur Squamous Epith Cells 1 (0-4) /hpf Amorphous Sediment Few H (None) /hpf Hyaline Casts 21 H (0-2) /lpf Urine Mucus Rare H (None) /hpf Urine Opiates Screen Detected H (NotDetected) Ur Oxycodone Screen Not Detected (NotDetected) Urine Methadone Screen Not Detected (NotDetected) Ur Propoxyphene Screen Not Detected (NotDetected) Ur Barbiturates Screen Not Detected (NotDetected) U Tricyclic Antidepress Not Detected (NotDetected) Ur Phencyclidine Scrn Not Detected (NotDetected) Ur Amphetamines Screen Not Detected (NotDetected) U Methamphetamines Scrn Not Detected (NotDetected) U Benzodiazepines Scrn Not Detected (NotDetected) Urine Cocaine Screen Not Detected (NotDetected) U Marijuana (THC) Screen Not Detected (NotDetected) Serum Alcohol <10 mg/dL 11/28/19 11/28/19 11/28/19 Range/Units 14:57 14:57 14:57 WBC (3.8-10.6) k/uL RBC (4.30-5.90) m/uL Hgb (13.0-17.5) gm/dL Hct (39.0-53.0) % MCV (80.0-100.0) fL MCH (25.0-35.0) pg MCHC (31.0-37.0) g/dL RDW (11.5-15.5) % Plt Count (150-450) k/uL Neutrophils % % Lymphocytes % % Monocytes % % Eosinophils % % Basophils % % Neutrophils # (1.3-7.7) k/uL Lymphocytes # (1.0-4.8) k/uL Monocytes # (0-1.0) k/uL Eosinophils # (0-0.7) k/uL Basophils # (0-0.2) k/uL Hypochromasia Macrocytosis PT (9.0-12.0) sec INR (<1.2) APTT (22.0-30.0) sec VBG pH 7.13 L* (7.31-7.41) VBG pCO2 35 L (37-51) mmHg VBG HCO3 11 L (24-28) mmol/L Sodium (137-145) mmol/L Potassium (3.5-5.1) mmol/L Chloride (98-107) mmol/L Carbon Dioxide (22-30) mmol/L Anion Gap mmol/L BUN (9-20) mg/dL Creatinine (0.66-1.25) mg/dL Est GFR (CKD-EPI)AfAm (>60 ml/min/1.73 sqM) Est GFR (CKD-EPI)NonAf (>60 ml/min/1.73 sqM) Glucose (74-99) mg/dL Plasma Lactic Acid Ronnie 1.0 (0.7-2.0) mmol/L Calcium (8.4-10.2) mg/dL Magnesium (1.6-2.3) mg/dL Total Bilirubin (0.2-1.3) mg/dL AST (17-59) U/L ALT (4-49) U/L Alkaline Phosphatase (38-126) U/L Ammonia 13 (<30) umol/L Troponin I 4.290 H* (0.000-0.034) ng/mL Total Protein (6.3-8.2) g/dL Albumin (3.5-5.0) g/dL Urine Color Urine Appearance (Clear) Urine pH (5.0-8.0) Ur Specific [place] (1.001-1.035) Urine Protein (Negative) Urine Glucose (UA) (Negative) Urine Ketones (Negative) Urine Blood (Negative) Urine Nitrite (Negative) Urine Bilirubin (Negative) Urine Urobilinogen (<2.0) mg/dL Ur Leukocyte Esterase (Negative) Urine RBC (0-5) /hpf Urine WBC (0-5) /hpf Ur Squamous Epith Cells (0-4) /hpf Amorphous Sediment (None) /hpf Hyaline Casts (0-2) /lpf Urine Mucus (None) /hpf Urine Opiates Screen (NotDetected) Ur Oxycodone Screen (NotDetected) Urine Methadone Screen (NotDetected) Ur Propoxyphene Screen (NotDetected) Ur Barbiturates Screen (NotDetected) U Tricyclic Antidepress (NotDetected) Ur Phencyclidine Scrn (NotDetected) Ur Amphetamines Screen (NotDetected) U Methamphetamines Scrn (NotDetected) U Benzodiazepines Scrn (NotDetected) Urine Cocaine Screen (NotDetected) U Marijuana (THC) Screen (NotDetected) Serum Alcohol mg/dL 11/28/19 Range/Units 15:12 WBC (3.8-10.6) k/uL RBC (4.30-5.90) m/uL Hgb (13.0-17.5) gm/dL Hct (39.0-53.0) % MCV (80.0-100.0) fL MCH (25.0-35.0) pg MCHC (31.0-37.0) g/dL RDW (11.5-15.5) % Plt Count (150-450) k/uL Neutrophils % % Lymphocytes % % Monocytes % % Eosinophils % % Basophils % % Neutrophils # (1.3-7.7) k/uL Lymphocytes # (1.0-4.8) k/uL Monocytes # (0-1.0) k/uL Eosinophils # (0-0.7) k/uL Basophils # (0-0.2) k/uL Hypochromasia Macrocytosis PT 11.2 (9.0-12.0) sec INR 1.1 (<1.2) APTT 25.1 (22.0-30.0) sec VBG pH (7.31-7.41) VBG pCO2 (37-51) mmHg VBG HCO3 (24-28) mmol/L Sodium (137-145) mmol/L Potassium (3.5-5.1) mmol/L Chloride (98-107) mmol/L Carbon Dioxide (22-30) mmol/L Anion Gap mmol/L BUN (9-20) mg/dL Creatinine (0.66-1.25) mg/dL Est GFR (CKD-EPI)AfAm (>60 ml/min/1.73 sqM) Est GFR (CKD-EPI)NonAf (>60 ml/min/1.73 sqM) Glucose (74-99) mg/dL Plasma Lactic Acid Ronnie (0.7-2.0) mmol/L Calcium (8.4-10.2) mg/dL Magnesium (1.6-2.3) mg/dL Total Bilirubin (0.2-1.3) mg/dL AST (17-59) U/L ALT (4-49) U/L Alkaline Phosphatase (38-126) U/L Ammonia (<30) umol/L Troponin I (0.000-0.034) ng/mL Total Protein (6.3-8.2) g/dL Albumin (3.5-5.0) g/dL Urine Color Urine Appearance (Clear) Urine pH (5.0-8.0) Ur Specific [place] (1.001-1.035) Urine Protein (Negative) Urine Glucose (UA) (Negative) Urine Ketones (Negative) Urine Blood (Negative) Urine Nitrite (Negative) Urine Bilirubin (Negative) Urine Urobilinogen (<2.0) mg/dL Ur Leukocyte Esterase (Negative) Urine RBC (0-5) /hpf Urine WBC (0-5) /hpf Ur Squamous Epith Cells (0-4) /hpf Amorphous Sediment (None) /hpf Hyaline Casts (0-2) /lpf Urine Mucus (None) /hpf Urine Opiates Screen (NotDetected) Ur Oxycodone Screen (NotDetected) Urine Methadone Screen (NotDetected) Ur Propoxyphene Screen (NotDetected) Ur Barbiturates Screen (NotDetected) U Tricyclic Antidepress (NotDetected) Ur Phencyclidine Scrn (NotDetected) Ur Amphetamines Screen (NotDetected) U Methamphetamines Scrn (NotDetected) U Benzodiazepines Scrn (NotDetected) Urine Cocaine Screen (NotDetected) U Marijuana (THC) Screen (NotDetected) Serum Alcohol mg/dL Disposition Clinical Impression: Opiate overdose, Metabolic encephalopathy, Acute renal failure, Hyperkalemia, Troponin level elevated Disposition: ADMITTED IP TO THIS [facility] Condition: Serious Is patient prescribed a controlled substance at d/c from ED?: No Referrals: Marina Marques MD [Primary Care Provider] - 1-2 days Decision to Admit Reason: Admit from EC Decision Date: 11/28/19 Decision Time: 17:09
[2019-11-28 15:03] LABS: Amorphous Sediment,Urine Few /hpf; Appearance,Urine Cloudy (Clear); Bilirubin,Urine Negative (Negative); Blood,Urine Negative (Negative); Color,Urine Yellow; Glucose,Urine (UA) Negative (Negative); Hyaline Casts,Urine 21 /lpf (0-2); Ketones,Urine Negative (Negative); Leukocyte Esterase,Urine Negative (Negative); Mucus,Urine Rare /hpf; Nitrite,Urine Negative (Negative); PH, Urine 5.5 (5.0-8.0); Protein,Urine 1+ (Negative); RBC,Urine 4 /hpf (0-5); Specific Gravity,Urine 1.015 (1.001-1.035); Squamous Epithelial Cell,Urine 1 /hpf (0-4); Urobilinogen,Urine <2.0 mg/dL (<2.0); WBC,Urine 3 /hpf (0-5)
[2019-11-28 15:14] LABS: Amphetamine Screen,Urine Not Detected (NotDetected); Barbiturate Screen,Urine Not Detected (NotDetected); Benzodiazepines Screen,Urine Not Detected (NotDetected); Cocaine Screen,Urine Not Detected (NotDetected); Methadone Screen, Urine Not Detected (NotDetected); Opiate Screen,Urine Detected (NotDetected); Oxycodone Screen, Urine Not Detected (NotDetected); Phencyclidine Screen,Urine Not Detected (NotDetected); Tricyclic Antidepressant,Urine Not Detected (NotDetected); Urn Cannabinoid Scrn Not Detected (NotDetected)
[2019-11-28 15:20] LABS: Basophils % (A) 0 %; Eosinophils # (A) 0.2 k/uL (0-0.7); Eosinophils % (A) 2 %; HCT 34.2 % (39.0-53.0); Hypochromasia Moderate; Lymphocytes # (A) 0.9 k/uL (1.0-4.8); Lymphocytes % (A) 7 %; MCH 32.4 pg (25.0-35.0); MCHC 32.2 g/dL (31.0-37.0); MCV 100.3 fL (80.0-100.0); Macrocytosis Slight; Mean Platelet Volume 8.2; Monocytes # (A) 1.2 k/uL (0-1.0); Monocytes % (A) 8 %; Neutrophils # (A) 11.4 k/uL (1.3-7.7); Neutrophils % (A) 81 %; Platelet Count 177 k/uL (150-450); RBC 3.41 m/uL (4.30-5.90); RDW 14.5 % (11.5-15.5)
[2019-11-28] MEDS ORDERED: ONDANSETRON 4 MG/2 ML VIAL IVP STA (15:26)
[2019-11-28 15:32] LABS: ALT 20 U/L (4-49); AST 51 U/L (17-59); Alcohol <10 mg/dL; Alkaline Phosphatase 114 U/L (38-126); Anion Gap 17 mmol/L; Blood Urea Nitrogen 95 mg/dL (9-20); Calcium 8.7 mg/dL (8.4-10.2); Carbon Dioxide 11 mmol/L (22-30); Chloride 111 mmol/L (98-107); Glucose 96 mg/dL (74-99); Magnesium 2.5 mg/dL (1.6-2.3); Sodium 139 mmol/L (137-145); Total Protein 7.1 g/dL (6.3-8.2); VBG PH 7.13 (7.31-7.41)
[2019-11-28 15:36] LABS: African American GFR (CKD) 8 (>60 ml/min/1.73 sqM); Non-African American GFR(CKD) 7 (>60 ml/min/1.73 sqM)
[2019-11-28] MEDS ORDERED: SODIUM CHLORIDE 0.9% 1,000 ML IV SCH (15:45)
[2019-11-28] MEDS ORDERED: INSULIN REGULAR 100 UNIT/ML VIAL IV ONE (15:49)
[2019-11-28] MEDS ORDERED: CALCIUM GLUCONATE 1 GM in SODIUM CHLORIDE 0.9% 100 ML IVPB ONE (15:49)
[2019-11-28] MEDS ORDERED: ALBUTEROL NEB (CONC) 2.5 MG/0.5 ML INHALATION ONE (15:49)
[2019-11-28] MEDS ORDERED: DEXTROSE 50% SYRINGE 50 ML IVP ONE (15:49)
[2019-11-28] MEDS ORDERED: SODIUM BICARB 8.4% 50 ML SYR (1 MEQ/ML) IV ONE (15:49)
[2019-11-28] MEDS ORDERED: SODIUM POLYSTYRENE SULFONATE 15 GM/60 ML BOTTLE PO ONE (15:49)
--- NOTE | 2019-11-28 15:57 | XR ---
EXAMINATION TYPE: XR chest 2V DATE OF EXAM: 11/28/2019 COMPARISON: 11/27/2013 HISTORY: Shortness of breath TECHNIQUE: Frontal and lateral views of the chest are obtained. FINDINGS: Scattered senescent parenchymal changes noted. Hyperinflation compatible with COPD. No evidence for infiltrate. No evidence for atelectasis. Heart size is stable. Mediastinal structures are stable and grossly unremarkable. No evidence for hilar prominence. Degenerative changes dorsal spine. IMPRESSION: 1. No evidence for acute pulmonary disease.
[2019-11-28 16:05] LABS: INR 1.1 (<1.2); Partial Thromboplastin Time 25.1 sec (22.0-30.0); Prothrombin Time 11.2 sec (9.0-12.0)
[2019-11-28] MEDS ORDERED: SODIUM CHLORIDE 0.9% 500 ML 500 ML IV STA (16:06)
--- NOTE | 2019-11-28 16:25 | CT ---
EXAMINATION TYPE: CT brain wo con DATE OF EXAM: 11/28/2019 COMPARISON: 12/07/2011 HISTORY: 64-year-old male confusion, altered mental status, Patient poor historian. TECHNIQUE: Examination was done in axial plane without intravenous contrast. Coronal and sagittal r econstructions performed. CT DLP: 1202.4 mGycm Automated exposure control for dose reduction was used. FINDINGS: There is no evidence of acute intracranial hemorrhage, acute ischemic changes, mass, mass-effect, or extra-axial fluid collection. There is no effacement of cerebral sulci or basal subarachnoid cister ns. There is no hydrocephalus. There is no midline shift. Saeed-white matter distinction is preserv ed. Complete opacification of the right maxillary sinus with reactive ayah-osteogenesis imperfecta and int rinsic calcification. Scattered mild mucosal thickening ethmoid air cells. Orbits and globes appear i ntact. Mastoid air cells are well pneumatized. Rightward nasal septal deviation. Mild to moderate generalized cerebral cortical volume loss. Some atherosclerotic calcifications in th e bilateral carotid siphons. IMPRESSION: 1. No acute intracranial abnormality seen. Mild to moderate atrophy along the cerebral convexities. 2. Severe long-standing right maxillary sinus disease with reactive bony thickening of the sinus wall s. Some internal calcifications can be seen in the setting of superimposed aspergillus infection. Out patient ENT referral would be beneficial.
[2019-11-28] MEDS ORDERED: LORazepam 2 MG/ML INJ IV STA ×2 (16:40→17:18)
[2019-11-28] MEDS ORDERED: NALOXONE 0.4 MG/ML 1 ML VIAL IV PRN (16:40)
[2019-11-28] MEDS: DEXTROSE 5% IN WATER 1,000 ML with SODIUM BICARB (1 MEQ/ML) 150 ML IV SCH (17:10)
--- NOTE | 2019-11-28 18:42 | P.NPCON ---
History of Present Illness - Reason for Consult acute renal failure, hyperkalemia - History of Present Illness Reason for consultation: Acute kidney injury and hyperkalemia History of present illness: Patient is a 64-year-old male seen in renal consultation for acute kidney injury and hyperkalemia. Patient's baseline creatinine is near 1 from November 2017. Creatinine on admission was 7.8. Potassium level was 7.0. He was also noted to be acidotic with a bicarb level of 11. Patient is quite confused. Family is present at bedside. According to the family he should was abusing his pain medications. On Tuesday, November 24, he took additional doses of his pain medication. Unclear as to which opioid he was on. Additionally he was taking Voltaren as well. Family states that he did not take any additional pain medications since Tuesday. He was evaluated in the emergency room yesterday and received Narcan. His mentation had improved and he was subsequently discharged home. However he hasn't been eating and drinking much and mentation again worsened when he became confused and was brought back to the hospital. He has received Narcan. Hyperkalemia has been medically treated with IV calcium, IV bicarb, IV insulin with D50 as well as nebulized albuterol. He also received Kayexalate. So far he received 2 L of normal saline and will be started on isotonic bicarbonate drip. Khan catheter will be inserted. He was also on lisinopril at home which will be held. No evidence of fluid overload on chest x-ray. Brain CT revealed no acute changes. Vital signs are stable. General: The patient appeared well nourished and normally developed. HEENT: Head exam is unremarkable. Neck is without jugular venous distension. LUNGS: Lungs are clear to auscultation and percussion. Breath sounds decreased. HEART: Rate and Rhythm are regular. ABDOMEN: Soft, nontender. EXTREMITITES: No edema. Past Medical History Past Medical History: Hyperlipidemia, Hypertension Additional Past Medical History / Comment(s): BACK PAIN History of Any Multi-Drug Resistant Organisms: MRSA Date of last positivie culture/infection: 2012 MDRO Source:: SKIN Past Surgical History: Cholecystectomy Additional Past Surgical History / Comment(s): CERVICAL SURGERY, FATTY TUMOR REMOVED, LEFT HAND SURGERY Past Anesthesia/Blood Transfusion Reactions: No Reported Reaction Past Psychological History: Depression Smoking Status: Current every day smoker Past Alcohol Use History: None Reported Past Drug Use History: None Reported - Past Family History Mother Family Medical History: No Reported History Medications and Allergies Home Medications Medication Instructions Recorded Confirmed Type Atorvastatin [Lipitor] 40 mg PO DAILY 12/10/16 11/28/19 History Citalopram Hydrobromide [CeleXA] 20 mg PO DAILY 12/10/16 11/28/19 History Diclofenac Sodium [Voltaren] 25 mg PO BID 12/10/16 11/28/19 History Lisinopril [Zestril] 10 mg PO DAILY 12/10/16 11/28/19 History Omeprazole [PriLOSEC] 20 mg PO DAILY 12/10/16 11/28/19 History Tamsulosin HCl [Flomax] 0.4 mg PO BID 12/10/16 11/28/19 History HYDROcodone/IBUPROFEN 7.5-200 1 tab PO BID PRN 11/27/19 11/28/19 History [Vicoprofen 7.5-200 mg] Allergies Allergy/AdvReac Type Severity Reaction Status Date / Time tramadol Allergy Unknown Rash/Hives Verified 11/28/19 14:08 bupropion [From Wellbutrin] AdvReac Unknown STATES IT Verified 11/28/19 14:08 MADE HIM ANGRY Physical Exam Vitals: Vital Signs Temp Pulse Resp BP Pulse Ox 11/28/19 18:13 109 H 20 99/56 95 11/28/19 17:30 106 H 18 108/58 98 11/28/19 17:10 100 15 11/28/19 16:37 100 11/28/19 16:32 105 H 18 145/84 94 L 11/28/19 16:17 101 H 11/28/19 15:30 98 18 144/84 95 11/28/19 15:03 15 11/28/19 13:31 98 F 64 22 103/55 93 L Intake and Output 11/28/19 11/28/19 11/28/19 06:59 14:59 22:59 Output Total 300 Balance -300 Output: Urine 300 Uretheral (Khan) 300 Other: Weight 108.862 kg Results - Lab Results Most recent lab results Calcium 8.7 mg/dL (8.4-10.2) 11/28/19 14:57 Magnesium 2.5 mg/dL (1.6-2.3) H 11/28/19 14:57 11/28/19 14:57 11/28/19 14:57 Assessment and Plan Plan: Assessment: 1. Acute kidney injury secondary to ATN secondary to hemodynamic instability as well as nonsteroidals and further worsened with the use of ALBERT inhibitor. Rule out urinary retention and obstructive uropathy. Creatinine was 1 in December 2017. No other records available. This admission elevated at 7.81. 2. Hyperkalemia secondary to acute kidney injury, metabolic acidosis, lisinopril as well as nonsteroidals. 3. Metabolic acidosis secondary to acute kidney injury. 4. Opioid abuse. Plan: Maintain isotonic bicarbonate drip to be run at 125 mL an hour. Insert Khan catheter. Check renal ultrasound. Strict is and os. Avoid nephrotoxins. Hold antihypertensives. Repeat BMP at 7 PM. If no improvement in his potassium level, he will require emergent hemodialysis. Case was discussed with family at bedside and she is in agreement. Thank you for the consultation. I will continue to follow the patient with you during his hospital stay.
[2019-11-28 19:01] LABS: Calcium 8.3 mg/dL (8.4-10.2); Potassium 5.8 mmol/L (3.5-5.1)
[2019-11-28 21:53] LABS: Glucose,Whole Blood 141 mg/dL (75-99)
[2019-11-28] MEDS ORDERED: SODIUM CHLORIDE 0.9% 1,000 ML IV ONE (21:55)
[2019-11-29] MEDS: HEPARIN SODIUM,PORCINE 5,000 UNIT/ML 1 ML VIAL SQ SCH ×3 (00:52→15:46)
--- NOTE | 2019-11-29 00:55 | US ---
EXAMINATION TYPE: US kidneys/renal and bladder DATE OF EXAM: 11/28/2019 COMPARISON: US 2012 CLINICAL HISTORY: [place]. Patient cannot provide history. EXAM MEASUREMENTS: Right Kidney: 10.4 x 4.3 x 4.7 cm Left Kidney: 11.9 x 6.2 x 5.7 cm *Large patient body habitus Right Kidney: No hydronephrosis or masses seen. Lower pole obscured by gas. Left Kidney: No hydronephrosis or masses seen. Limited due to gas. Bladder: Undistended. Unable to evaluate. Bilateral Jets seen: No IMPRESSION: We could not demonstrate ureteral jets. There is no hydronephrosis to suggest obstruction. No evidenc e of any significant renal atrophy. Bladder was empty during the exam.
[2019-11-29] MEDS: DEXTROSE 5% IN WATER 1,000 ML with SODIUM BICARB (1 MEQ/ML) 150 ML IV SCH ×2 (01:36→12:22)
[2019-11-29 02:00] LABS: Potassium 6.1 mmol/L (3.5-5.1)
[2019-11-29] MEDS ORDERED: SODIUM BICARB 8.4% 50 ML SYR (1 MEQ/ML) IV STA (02:06)
[2019-11-29] MEDS ORDERED: INSULIN REGULAR 100 UNIT/ML VIAL IV ONE (02:08)
[2019-11-29] MEDS ORDERED: DEXTROSE 50% SYRINGE 50 ML IVP STA (02:09)
[2019-11-29 02:24] LABS: Glucose,Whole Blood 137 mg/dL (75-99)
[2019-11-29 05:34] LABS: Basophils % (A) 0 %; Eosinophils # (A) 0.2 k/uL (0-0.7); Eosinophils % (A) 2 %; HCT 29.4 % (39.0-53.0); HGB 9.6 gm/dL (13.0-17.5); Hypochromasia Slight; Lymphocytes # (A) 1.3 k/uL (1.0-4.8); Lymphocytes % (A) 15 %; MCH 32.2 pg (25.0-35.0); MCHC 32.5 g/dL (31.0-37.0); Mean Platelet Volume 8.6; Monocytes # (A) 0.8 k/uL (0-1.0); Monocytes % (A) 9 %; Neutrophils # (A) 6.4 k/uL (1.3-7.7); Neutrophils % (A) 72 %; Platelet Count 136 k/uL (150-450); RBC 2.97 m/uL (4.30-5.90); RDW 14.6 % (11.5-15.5)
[2019-11-29 05:48] LABS: Calcium 7.5 mg/dL (8.4-10.2); Magnesium 2.4 mg/dL (1.6-2.3); Phosphorus 7.7 mg/dL (2.5-4.5); Potassium 4.7 mmol/L (3.5-5.1)
[2019-11-29 05:50] LABS: Glucose,Whole Blood 121 mg/dL (75-99)
--- NOTE | 2019-11-29 07:08 | HP ---
HISTORY AND PHYSICAL DATE OF SERVICE: 11/28/2019 CHIEF COMPLAINT: Weakness and change in mental status. HISTORY OF PRESENT ILLNESS: This 64-year-old gentleman with a past medical history of multiple medical problems including hyperlipidemia, hypertension, history of back pain, cholecystomy being followed by Dr. Marques in the outpatient setting. Apparently seen in the emergency room on with opioid overdose. Patient was given 2 Narcan and patient felt better and patient discharged. The family again took the patient to the ER with change in mental status and the patient was given one Narcan with not much effect. The patient had multiple abnormal labs including acute renal failure with creatinine elevated up to 7.81, severe hyperkalemia, potassium 7. After regimen, potassium has improved to 5.8 and creatinine is 6.75. Patient is still stuporous and unable to give a coherent history. The patient is monitored in ICU at this time. The patient also had troponin 4.29 indicating possible acute vxo-CP-oxokrvw-elevation myocardial infarction as well. A detailed history cannot be taken from the patient. Most of the history per my discussion with staff, discussion with the ER physician as well as review of the chart. The patient also received multiple fluid boluses for hypotension. PAST MEDICAL HISTORY: History of hyperlipidemia, history of hypertension, history of back pain, MRSA, cholecystectomy. MEDICATIONS: Home medications are: 1. Flomax 0.4 b.i.d. 2. Prilosec 20 mg daily. 3. Zestril 10 mg daily. 4. Hydrocodone. 5. Diclofenac. 6. Celexa. 7. Lipitor. ALLERGIES: ULTRAM, BUPROPION. FAMILY HISTORY: No history of heart disease or strokes per chart. SOCIAL HISTORY: History of smoking, heroin and alcohol. REVIEW OF SYSTEMS: Could not be taken. PHYSICAL EXAMINATION: The patient is stuporous. Pulse 80, blood pressure 90/61, respiration 17, temperature is normal. Pulse ox 94% on 6 L. HEENT: Conjunctivae normal. Oral mucosa moist. NECK: No jugular venous distention. No carotid bruit. No lymph node enlargement. CARDIOVASCULAR: S1. S2, muffled. No S3, no S4. RESPIRATORY: Breath sounds diminished at the bases. A few scattered rhonchi. No crackles. ABDOMEN: Soft, nontender. No mass palpable. LEGS: No edema, no swelling. NERVOUS SYSTEM: Diffusely weak. LABS: WBC 14, hemoglobin 11. Sodium 139, potassium 7 and creatinine 7.81. Troponin 4.290. ASSESSMENT: 1. Acute renal failure possibly acute tubular necrosis and prerenal factors. 2. Change in mental status, acute metabolic acidosis secondary to renal failure and possible overdose. 3. Hypotension possibly secondary dehydration possibly cardiogenic shock. 4. Hyperkalemia secondary to renal failure. 5. Severe metabolic acidosis secondary to renal failure. 6. Troponin 4.290, possibly acute bbs-JG-mbldurm-elevation myocardial infarction. 7. Increased WBC. 8. Anemia macrocytic. 9. History of overdose. 10.History of hypertension. 11.History of hyperlipidemia. 12.History of back pain. 13.History of methicillin-resistant Staphylococcus aureus. 14.History of cholecystectomy. 15.History of depression. 16.History of nicotine dependence. 17.History of heroin abuse. 18.History of THC. RECOMMENDATIONS AND DISCUSSION: In this 64-year-old gentleman who presented with multiple complex medical issues, will monitor the patient closely in the ICU. We will continue to monitor fluid boluses carefully. Chest x-ray was reviewed personally. Will obtain abdominal ultrasound. Brain CT scan did not show acute abnormality. We will obtain Cardiology, Nephrology and renal consultations. Otherwise, I would also recommend a 2D echo with Doppler to evaluate the ejection fraction. Prognosis guarded because of multiple complex medical issues. Further recommendations to follow. A copy of dictation forwarded to Dr. Marques who is the primary physician. See orders for further details. MMODL / IJN: [id number] /
--- NOTE | 2019-11-29 07:38 | XR ---
EXAMINATION TYPE: XR chest 1V DATE OF EXAM: 11/29/2019 COMPARISON: 11/28/2019 INDICATION: Exertional dyspnea TECHNIQUE: Single frontal view of the chest is obtained. FINDINGS: The heart size is mildly prominent. The pulmonary vasculature is prominent. There is mild increased lung markings present bilaterally. Correlate for worsening pulmonary edema. IMPRESSION: 1. Clinical correlation recommended for worsening congestive heart failure.
[2019-11-29] MEDS ORDERED: FUROSEMIDE 10 MG/ML 10 ML VIAL IV STA (08:12)
[2019-11-29] MEDS: PANTOPRAZOLE 40 MG/10 ML VIAL IV SCH (09:02)
[2019-11-29] MEDS: PIPERACILLIN-TAZOBACTAM 3.375 GM in SODIUM CHLORIDE 0.9% 100 ML IVPB SCH ×2 (09:02→20:35)
--- NOTE | 2019-11-29 09:24 | P.PN ---
Subjective Patient is seen in follow for acute kidney injury. Creatinine was 7.8 on admission and is 6.47 today. Creatinine in November 2017 was 1.1. Patient remains confused. He is currently on bicarb drip - bicarb improving. potassium level now normal. Urine output 10-30 mL an hour. Blood pressure in the systolic 90s. Vital signs are stable. blood pressure on the lower side. General: The patient appeared well nourished and normally developed. HEENT: Head exam is unremarkable. Neck is without jugular venous distension. LUNGS: Breath sounds decreased. HEART: Rate and Rhythm are regular. ABDOMEN: soft, nontender. EXTREMITITES: No edema. Objective - Vital Signs Vital signs: Vital Signs Temp 98.0 F 11/29/19 08:00 Pulse 78 11/29/19 08:00 Resp 14 11/29/19 08:00 BP 94/62 11/29/19 08:00 Pulse Ox 92 L 11/29/19 08:00 Intake & Output 11/28/19 11/29/19 11/29/19 18:59 06:59 18:59 Intake Total 2125 250 Output Total 300 697 50 Balance -300 1428 200 Weight 108.862 kg 107.6 kg Intake: IV 2125 250 Dextrose 5% in Water 1, 1125 250 000 ml @ 125 mls/hr IV . Q9H12M AMY with Sodium Bicarb (1 Meq/ml) 150 ml Rx#:[id number] Sodium Chloride 0.9% 1, 1000 000 ml @ 999 mls/hr IV . Q1H1M ONE Rx#:[id number] Output: Urine 300 697 50 Uretheral (Khan) 300 Other: Voiding Method Indwelling Catheter - Labs CBC & Chem 7: 11/29/19 05:10 11/29/19 05:12 Labs: Abnormal Lab Results - Last 24 Hours (Table) 11/28/19 11/28/19 11/28/19 Range/Units 14:40 14:57 14:57 WBC 14.0 H (3.8-10.6) k/uL RBC 3.41 L (4.30-5.90) m/uL Hgb 11.0 L (13.0-17.5) gm/dL Hct 34.2 L (39.0-53.0) % MCV 100.3 H (80.0-100.0) fL Plt Count (150-450) k/uL Neutrophils # 11.4 H (1.3-7.7) k/uL Lymphocytes # 0.9 L (1.0-4.8) k/uL Monocytes # 1.2 H (0-1.0) k/uL VBG pH (7.31-7.41) VBG pCO2 (37-51) mmHg VBG HCO3 (24-28) mmol/L Potassium 7.0 H* (3.5-5.1) mmol/L Chloride 111 H (98-107) mmol/L Carbon Dioxide 11 L (22-30) mmol/L BUN 95 H (9-20) mg/dL Creatinine 7.81 H* (0.66-1.25) mg/dL Glucose (74-99) mg/dL POC Glucose (mg/dL) (75-99) mg/dL Calcium (8.4-10.2) mg/dL Phosphorus (2.5-4.5) mg/dL Magnesium 2.5 H (1.6-2.3) mg/dL Creatine Kinase (55-170) U/L Troponin I (0.000-0.034) ng/mL Urine Protein 1+ H (Negative) Amorphous Sediment Few H (None) /hpf Hyaline Casts 21 H (0-2) /lpf Urine Mucus Rare H (None) /hpf Urine Opiates Screen Detected H (NotDetected) 11/28/19 11/28/19 11/28/19 Range/Units 14:57 14:57 18:16 WBC (3.8-10.6) k/uL RBC (4.30-5.90) m/uL Hgb (13.0-17.5) gm/dL Hct (39.0-53.0) % MCV (80.0-100.0) fL Plt Count (150-450) k/uL Neutrophils # (1.3-7.7) k/uL Lymphocytes # (1.0-4.8) k/uL Monocytes # (0-1.0) k/uL VBG pH 7.13 L* (7.31-7.41) VBG pCO2 35 L (37-51) mmHg VBG HCO3 11 L (24-28) mmol/L Potassium (3.5-5.1) mmol/L Chloride (98-107) mmol/L Carbon Dioxide (22-30) mmol/L BUN (9-20) mg/dL Creatinine (0.66-1.25) mg/dL Glucose (74-99) mg/dL POC Glucose (mg/dL) (75-99) mg/dL Calcium (8.4-10.2) mg/dL Phosphorus (2.5-4.5) mg/dL Magnesium (1.6-2.3) mg/dL Creatine Kinase (55-170) U/L Troponin I 4.290 H* 3.480 H* (0.000-0.034) ng/mL Urine Protein (Negative) Amorphous Sediment (None) /hpf Hyaline Casts (0-2) /lpf Urine Mucus (None) /hpf Urine Opiates Screen (NotDetected) 11/28/19 11/28/19 11/29/19 Range/Units 18:40 21:48 01:05 WBC (3.8-10.6) k/uL RBC (4.30-5.90) m/uL Hgb (13.0-17.5) gm/dL Hct (39.0-53.0) % MCV (80.0-100.0) fL Plt Count (150-450) k/uL Neutrophils # (1.3-7.7) k/uL Lymphocytes # (1.0-4.8) k/uL Monocytes # (0-1.0) k/uL VBG pH (7.31-7.41) VBG pCO2 (37-51) mmHg VBG HCO3 (24-28) mmol/L Potassium 5.8 H (3.5-5.1) mmol/L Chloride 114 H (98-107) mmol/L Carbon Dioxide 12 L (22-30) mmol/L BUN 97 H (9-20) mg/dL Creatinine 6.75 H (0.66-1.25) mg/dL Glucose (74-99) mg/dL POC Glucose (mg/dL) 141 H (75-99) mg/dL Calcium 8.3 L (8.4-10.2) mg/dL Phosphorus (2.5-4.5) mg/dL Magnesium (1.6-2.3) mg/dL Creatine Kinase (55-170) U/L Troponin I 4.860 H* (0.000-0.034) ng/mL Urine Protein (Negative) Amorphous Sediment (None) /hpf Hyaline Casts (0-2) /lpf Urine Mucus (None) /hpf Urine Opiates Screen (NotDetected) 11/29/19 11/29/19 11/29/19 Range/Units 01:05 02:23 05:10 WBC (3.8-10.6) k/uL RBC 2.97 L (4.30-5.90) m/uL Hgb 9.6 L (13.0-17.5) gm/dL Hct 29.4 L (39.0-53.0) % MCV (80.0-100.0) fL Plt Count 136 L (150-450) k/uL Neutrophils # (1.3-7.7) k/uL Lymphocytes # (1.0-4.8) k/uL Monocytes # (0-1.0) k/uL VBG pH (7.31-7.41) VBG pCO2 (37-51) mmHg VBG HCO3 (24-28) mmol/L Potassium 6.1 H* (3.5-5.1) mmol/L Chloride (98-107) mmol/L Carbon Dioxide (22-30) mmol/L BUN (9-20) mg/dL Creatinine (0.66-1.25) mg/dL Glucose (74-99) mg/dL POC Glucose (mg/dL) 137 H (75-99) mg/dL Calcium (8.4-10.2) mg/dL Phosphorus (2.5-4.5) mg/dL Magnesium (1.6-2.3) mg/dL Creatine Kinase 818 H (55-170) U/L Troponin I (0.000-0.034) ng/mL Urine Protein (Negative) Amorphous Sediment (None) /hpf Hyaline Casts (0-2) /lpf Urine Mucus (None) /hpf Urine Opiates Screen (NotDetected) 11/29/19 11/29/19 Range/Units 05:12 05:48 WBC (3.8-10.6) k/uL RBC (4.30-5.90) m/uL Hgb (13.0-17.5) gm/dL Hct (39.0-53.0) % MCV (80.0-100.0) fL Plt Count (150-450) k/uL Neutrophils # (1.3-7.7) k/uL Lymphocytes # (1.0-4.8) k/uL Monocytes # (0-1.0) k/uL VBG pH (7.31-7.41) VBG pCO2 (37-51) mmHg VBG HCO3 (24-28) mmol/L Potassium (3.5-5.1) mmol/L Chloride 110 H (98-107) mmol/L Carbon Dioxide 18 L (22-30) mmol/L BUN 97 H (9-20) mg/dL Creatinine 6.47 H (0.66-1.25) mg/dL Glucose 113 H (74-99) mg/dL POC Glucose (mg/dL) 121 H (75-99) mg/dL Calcium 7.5 L (8.4-10.2) mg/dL Phosphorus 7.7 H (2.5-4.5) mg/dL Magnesium 2.4 H (1.6-2.3) mg/dL Creatine Kinase (55-170) U/L Troponin I (0.000-0.034) ng/mL Urine Protein (Negative) Amorphous Sediment (None) /hpf Hyaline Casts (0-2) /lpf Urine Mucus (None) /hpf Urine Opiates Screen (NotDetected) Assessment and Plan Plan: Assessment: 1. Acute kidney injury secondary to ATN secondary to hemodynamic instability as well as nonsteroidals and further worsened with the use of ALBERT inhibitor. No evidence of hydronephrosis noted on kidney ultrasound. Creatinine was 1 in December 2017. No other records available. creatinine 7.8 on admission and is 6.47 today. 2. Hyperkalemia secondary to acute kidney injury, metabolic acidosis, l isinopril as well as nonsteroidals. improved with medical management. 3. Metabolic acidosis secondary to acute kidney injury. improving with bicarbonate drip. 4. Opioid abuse. 5. Hyperphosphatemia secondary to acute kidney injury. Plan: Maintain isotonic bicarbonate drip to be run at 125 mL an hour. Lasix 80 mg IV once today. Maintain Khan catheter. Strict is and os. Avoid nephrotoxins. Hold antihypertensives. Repeat BMP at 5 PM. Follow-up echocardiogram. May need vasopressor support. Monitor phosphorus. Will add binder once able to tolerate oral intake. Continue to assess daily for need for renal replacement therapy.
[2019-11-29] MEDS: CITALOPRAM HYDROBROMIDE 20 MG TAB PO SCH (10:06)
[2019-11-29] MEDS: TAMSULOSIN 0.4 MG CAP.ER.24H PO SCH ×2 (10:06→21:11)
--- NOTE | 2019-11-29 10:25 | ECHOF ---
Referral Reason:Troponin elevated MEASUREMENTS -------- HEIGHT: 180.3 cm WEIGHT: 108.9 kg BP: 101/57 RVIDd: 2.6 cm (< 3.3) IVSd: 1.4 cm (0.6 - 1.1) LVIDd: 2.5 cm (3.9 - 5.3) LVPWd: 1.4 cm (0.6 - 1.1) IVSs: 1.9 cm LVIDs: 1.8 cm LVPWs: 1.7 cm Ao Diam: 3.3 cm (2.0 - 3.7) AV Cusp: 1.9 cm (1.5 - 2.6) LA Diam: 3.4 cm (2.7 - 3.8) MV EXCURSION: 17.007 mm (> 18.000) MV EF SLOPE: 77 mm/s (70 - 150) EPSS: 0.2 cm MV E Agustin: 0.52 m/s MV DecT: 266 ms MV A Agustin: 0.62 m/s MV E/A Ratio: 0.83 RAP: 5.00 mmHg RVSP: 22.66 mmHg FINDINGS -------- Sinus rhythm. This was a technically difficult study with suboptimal views. The left ventricular size is normal. There is moderate concentric left ventricular hypertrophy. O verall left ventricular systolic function is low-normal with, an EF between 50 - 55 %. The right ventricle is normal in size. The left atrial size is normal. The right atrial size is normal. Lumason used The aortic valve is trileaflet and appears structurally normal. The mitral valve is normal. There is trace mitral regurgitation. The tricuspid valve appears structurally normal. Trace tricuspid regurgitation present. Right malvin tricular systolic pressure is normal at < 35 mmHg. There is no pulmonic regurgitation present. The aortic root size is normal. IVC Not well visulized. There is no pericardial effusion. CONCLUSIONS -------- 1. Sinus rhythm. 2. This was a technically difficult study with suboptimal views. 3. The left ventricular size is normal. 4. There is moderate concentric left ventricular hypertrophy. 5. Overall left ventricular systolic function is low-normal with, an EF between 50 - 55 %. 6. The right ventricle is normal in size. 7. The left atrial size is normal. 8. The right atrial size is normal. 9. Lumason used 10. The aortic valve is trileaflet and appears structurally normal. 11. The mitral valve is normal. 12. There is trace mitral regurgitation. 13. The tricuspid valve appears structurally normal. 14. Trace tricuspid regurgitation present. 15. Right ventricular systolic pressure is normal at < 35 mmHg. 16. There is no pulmonic regurgitation present. 17. The aortic root size is normal. 18. IVC Not well visulized. 19. There is no pericardial effusion. CANNERY WORKER: Sarah Mccollum RDCS
[2019-11-29 11:25] LABS: Glucose,Whole Blood 135 mg/dL (75-99)
[2019-11-29] MEDS: IPRATROPIUM-ALBUTEROL 3 ML NEB INHALATION SCH ×3 (11:37→20:29)
--- NOTE | 2019-11-29 14:55 | P.CNPUL ---
History of Present Illness Consult date: 11/29/19 Chief complaint: Altered mental status, acute kidney injury History of present illness: This is a 64-year-old male patient who came into the emergency department for the second day and all because of altered mentation. During the first emergency room visit the patient was given Narcan and he was released on suspecting an opiate overdose. No blood work was done. During the second emergency room visit, the patient was found to be in acute kidney injury with elevated creatinine of 7.8 and a potassium of 7.0 and the patient was quite acidotic with a serum bicarb of 11. The patient was confused. The patient was given a dose of Narcan which woke him up and he became more agitated. Following that he was given Ativan. As far as his hyperkalemia, the patient was started on IV fluids and the patient was given 2 A of sodium bicarb in the emergency room he was given Kayexalate and the D50 insulin combination and he was also given calcium gluconate. The patient was given a total of 2 L of IV fluids and another liter was given to him in the ICU. Currently is on a bicarb infusion running at 120 fasting an hour. Note that he was treated again with bicarbonate and D50 insulin in the intensive care unit as the potassium level Fluctuating. Most Recent Potassium Level Is down to 4.7 and the patient's serum bicarbs up to 18. Sodium level is at 140. Creatinine is down to expose 4. Note that the patient had been taking excessive number of his pain medication which included a combination of hydrocodone and ibuprofen. Hydrocodone was at 7.5 mg and ibuprofen was at 200 mg. He also takes Voltaren 25 mg by mouth twice a day and he takes also an MASON inhibitor at a dose of 10 mg of Zestril on a daily basis. Noted the patient also had an elevated troponin of 4.8 max and braille teacher on the case and no intervention was recommended as the patient's EKG showed no acute ischemic changes. Echocardiogram was done today was within normal limits. No previous history of coronary artery disease. He is producing urine output. He is still lethargic and snoring get he is arousable. He is unable to still hold a conversation this morning. Ultrasound the kidneys was done and there is no evidence of any hydronephrosis. The patient has chronic back pain along with hypertension and hyperlipidemia. CAT scan of the brain that was done no acute abnormalities. There is chronic atrophy and chronic basilar sinus disease. The ultrasound the kidneys showed no evidence of an hydronephrosis. The patient had an echocardiogram that showed an ejection fraction of 50-55%. No other valvular abnormalities. Review of Systems ROS unobtainable: due to mental status Past Medical History Past Medical History: Hyperlipidemia, Hypertension Additional Past Medical History / Comment(s): BACK PAIN History of Any Multi-Drug Resistant Organisms: MRSA Date of last positivie culture/infection: 2012 MDRO Source:: SKIN Past Surgical History: Cholecystectomy Additional Past Surgical History / Comment(s): CERVICAL SURGERY, FATTY TUMOR REMOVED, LEFT HAND SURGERY Past Anesthesia/Blood Transfusion Reactions: No Reported Reaction Past Psychological History: Depression Smoking Status: Current every day smoker Past Alcohol Use History: None Reported Past Drug Use History: None Reported - Past Family History Mother Family Medical History: No Reported History Additional Family Medical History / Comment(s): Mother had heart attack around age 70. Sister(s) Family Medical History: Diabetes Mellitus Medications and Allergies Home Medications Medication Instructions Recorded Confirmed Type Atorvastatin [Lipitor] 40 mg PO DAILY 12/10/16 11/28/19 History Citalopram Hydrobromide [CeleXA] 20 mg PO DAILY 12/10/16 11/28/19 History Diclofenac Sodium [Voltaren] 25 mg PO BID 12/10/16 11/28/19 History Lisinopril [Zestril] 10 mg PO DAILY 12/10/16 11/28/19 History Omeprazole [PriLOSEC] 20 mg PO DAILY 12/10/16 11/28/19 History Tamsulosin HCl [Flomax] 0.4 mg PO BID 12/10/16 11/28/19 History HYDROcodone/IBUPROFEN 7.5-200 1 tab PO BID PRN 11/27/19 11/28/19 History [Vicoprofen 7.5-200 mg] Allergies Allergy/AdvReac Type Severity Reaction Status Date / Time tramadol Allergy Unknown Rash/Hives Verified 11/28/19 14:08 bupropion [From Wellbutrin] AdvReac Unknown STATES IT Verified 11/28/19 14:08 MADE HIM ANGRY Physical Exam Vitals: Vital Signs Temp Pulse Resp BP Pulse Ox 11/29/19 13:00 86 12 117/53 96 11/29/19 12:00 98.8 F 84 20 109/52 96 11/29/19 11:53 99 11/29/19 11:40 96 11/29/19 11:00 79 18 99/59 95 11/29/19 10:00 82 14 98/63 95 11/29/19 09:00 84 17 91/56 93 L 11/29/19 08:00 98.0 F 78 12 94/62 92 L 11/29/19 07:00 82 12 85/61 95 11/29/19 06:30 82 16 92/50 93 L 11/29/19 06:00 79 18 101/57 93 L 11/29/19 05:30 86 18 89/58 92 L 11/29/19 05:00 77 11 L 95/54 97 11/29/19 04:30 76 14 82/53 95 11/29/19 04:00 70 10 L 75/55 97 11/29/19 03:41 14 11/29/19 03:30 72 10 L 85/52 96 11/29/19 03:00 71 10 L 86/57 97 11/29/19 02:30 72 12 93/52 97 11/29/19 02:00 79 17 84/55 94 L 11/29/19 01:30 75 16 93/47 94 L 11/29/19 01:00 75 18 93/56 96 11/29/19 00:55 97 11/29/19 00:40 16 11/29/19 00:30 77 19 89/55 93 L 11/29/19 00:00 98 F 80 20 94/59 93 L 11/28/19 23:40 79 18 94/59 93 L 11/28/19 23:30 80 16 94 L 11/28/19 23:15 79 17 90/61 93 L 11/28/19 23:00 80 17 94 L 11/28/19 22:45 81 18 94/62 94 L 11/28/19 22:30 80 10 L 93/51 95 11/28/19 22:15 98.1 F 84 10 L 91 L 11/28/19 22:10 84 14 89/47 91 L 11/28/19 22:00 85 16 91/52 92 L 11/28/19 21:50 83 11 L 87/49 92 L 11/28/19 20:10 98.3 F 104 H 19 102/50 97 11/28/19 19:12 97.8 F 100 18 105/61 95 11/28/19 18:13 109 H 20 99/56 95 11/28/19 17:30 106 H 18 108/58 98 11/28/19 17:10 100 15 11/28/19 16:37 100 11/28/19 16:32 105 H 18 145/84 94 L 11/28/19 16:17 101 H 11/28/19 15:30 98 18 144/84 95 11/28/19 15:03 15 Intake and Output 11/28/19 11/29/19 11/29/19 22:59 06:59 14:59 Intake Total 1125 1000 950 Output Total 780 217 895 Balance 345 783 55 Intake: IV 1125 1000 875 Dextrose 5% in Water 1, 125 1000 875 000 ml @ 125 mls/hr IV . Q9H12M AMY with Sodium Bicarb (1 Meq/ml) 150 ml Rx#:[id number] Sodium Chloride 0.9% 1, 1000 000 ml @ 999 mls/hr IV . Q1H1M ONE Rx#:[id number] Intake, IV Titration 75 Amount Piperacillin-Tazobactam 3 75 .375 gm In Sodium Chloride 0.9% 100 ml @ 25 mls/hr IVPB Q12HR AMY Rx #:[id number] Output: Urine 780 217 895 Uretheral (Khan) 300 Other: Voiding Method Indwelling Catheter Indwelling Catheter Weight 108.862 kg 107.6 kg 107.6 kg The patient is encephalopathic, still lethargic and very drowsy. I was able to arouse him for a few minutes and he goes back to sleep if left Dudley related. He is able to protect his airway. He snores loud. He withdraws to painful stimulation in all 4extremities. Head exam was generally normal. There was no scleral icterus or corneal arcus. Mucous membranes were dry Neck was supple and without jugular venous distension, thyromegaly, or carotid bruits. Carotids were easily palpable bilaterally. There was no adenopathy. The patient is a Mallampati class IV Lungs were clear to auscultation and percussion, and with normal diaphragmatic excursion. No wheezes or rales were noted. Crackles are appreciated in the right lung base Cardiac exam revealed the PMI to be normally situated and sized. The rhythm was regular and no extrasystoles were noted during several minutes of auscultation. The first and second heart sounds were normal and physiologic splitting of the second heart sound was noted. There were no murmurs, rubs, clicks, or gallops. Abdominal exam revealed normal bowel sounds. The abdomen was soft, non-tender, and without masses, organomegaly, or appreciable enlargement of the abdominal aorta. Examination of the extremities revealed easily palpable radial, femoral and pedal pulses. There was no cyanosis, clubbing or edema. Examination of the skin revealed no evidence of significant rashes, suspicious appearing nevi or other concerning lesions. Neurologic exam the patient is withdrawing to painful semination all 4 extremities. No Babinski. No clonus. Pupils are round to the 3 mm in size slightly reactive to light. No preferential gaze. No nystagmus. No facial asymmetry. Gait and sensory function cannot be assessed. No neck stiffness. Results - Laboratory Findings CBC and BMP: 11/29/19 05:10 11/29/19 05:12 PT/INR, D-dimer PT 11.2 sec (9.0-12.0) 11/28/19 15:12 INR 1.1 (<1.2) 11/28/19 15:12 Abnormal lab findings: Abnormal Labs 11/28/19 11/28/19 11/28/19 14:40 14:57 14:57 WBC 14.0 H RBC 3.41 L Hgb 11.0 L Hct 34.2 L MCV 100.3 H Plt Count Neutrophils # 11.4 H Lymphocytes # 0.9 L Monocytes # 1.2 H VBG pH VBG pCO2 VBG HCO3 Potassium 7.0 H* Chloride 111 H Carbon Dioxide 11 L BUN 95 H Creatinine 7.81 H* Glucose POC Glucose (mg/dL) Calcium Phosphorus Magnesium 2.5 H Creatine Kinase Troponin I Urine Protein 1+ H Amorphous Sediment Few H Hyaline Casts 21 H Urine Mucus Rare H Urine Opiates Screen Detected H 11/28/19 11/28/19 11/28/19 14:57 14:57 18:16 WBC RBC Hgb Hct MCV Plt Count Neutrophils # Lymphocytes # Monocytes # VBG pH 7.13 L* VBG pCO2 35 L VBG HCO3 11 L Potassium Chloride Carbon Dioxide BUN Creatinine Glucose POC Glucose (mg/dL) Calcium Phosphorus Magnesium Creatine Kinase Troponin I 4.290 H* 3.480 H* Urine Protein Amorphous Sediment Hyaline Casts Urine Mucus Urine Opiates Screen 11/28/19 11/28/19 11/29/19 18:40 21:48 01:05 WBC RBC Hgb Hct MCV Plt Count Neutrophils # Lymphocytes # Monocytes # VBG pH VBG pCO2 VBG HCO3 Potassium 5.8 H Chloride 114 H Carbon Dioxide 12 L BUN 97 H Creatinine 6.75 H Glucose POC Glucose (mg/dL) 141 H Calcium 8.3 L Phosphorus Magnesium Creatine Kinase Troponin I 4.860 H* Urine Protein Amorphous Sediment Hyaline Casts Urine Mucus Urine Opiates Screen 11/29/19 11/29/19 11/29/19 01:05 02:23 05:10 WBC RBC 2.97 L Hgb 9.6 L Hct 29.4 L MCV Plt Count 136 L Neutrophils # Lymphocytes # Monocytes # VBG pH VBG pCO2 VBG HCO3 Potassium 6.1 H* Chloride Carbon Dioxide BUN Creatinine Glucose POC Glucose (mg/dL) 137 H Calcium Phosphorus Magnesium Creatine Kinase 818 H Troponin I Urine Protein Amorphous Sediment Hyaline Casts Urine Mucus Urine Opiates Screen 11/29/19 11/29/19 11/29/19 05:12 05:48 11:23 WBC RBC Hgb Hct MCV Plt Count Neutrophils # Lymphocytes # Monocytes # VBG pH VBG pCO2 VBG HCO3 Potassium Chloride 110 H Carbon Dioxide 18 L BUN 97 H Creatinine 6.47 H Glucose 113 H POC Glucose (mg/dL) 121 H 135 H Calcium 7.5 L Phosphorus 7.7 H Magnesium 2.4 H Creatine Kinase Troponin I Urine Protein Amorphous Sediment Hyaline Casts Urine Mucus Urine Opiates Screen - Diagnostic Findings Chest x-ray: image reviewed Assessment and Plan Plan: 1 acute kidney injury, likely an ATN secondary to dehydration and excessive utilization of nonsteroidal anti-inflammatory medications and Mason inhibitors. The patient was taking Vicoprofen on outpatient basis addition to Voltaren and the patient has been on Zestril. 2 acute hyperkalemia secondary to above, improved 3 acute metabolic acidosis secondary to above, improving and the patient is currently on a bicarbonate drip 4 altered mentation secondary to above. In addition the patient possibly has a narcotic overdose which is in the form of Vicoprofen, CAT scan of the brain is negative and there are no signs of SURVIVAL EQUIPMENT REPAIRER trauma or infection. No evidence of any acute pneumonia is on initial CAT scan of the brain. Neurologic exam is nonfocal. 5 possible opiate abuse 6 chronic back pain 7 acute non-ST segment elevation myocardial infarction and troponin peaked at 4.8, hemodynamically stable with a normal echocardiogram 8 acute bilateral pulmonary infiltration right more than left, consider aspiration pneumonia 9 acute hypoxic respiratory failure currently on 2 L of oxygen by nasal cannula 10 hypertension 11 hyperlipidemia 12 obesity with a BMI of 33 Plan Continue bicarbonate infusion at the rate of 1 25 mL an hour Khan catheter is in place Ultrasound the kidneys shows no evidence of any hydronephrosis Monitor electrolytes Avoid nephrotoxic agents Hold antihypertensive medication for now Nephrology consultation has been obtained Monitor urine output Consult with cardiology regarding acute non-STEMI Add IV Zosyn regarding possibility of aspiration pneumonia Aspiration precautions Keep the head of the bed elevated and monitor the patient's mental status Check acetaminophen level We'll continue to follow and the patient will be kept in ICU for now.
[2019-11-29 17:50] LABS: Glucose,Whole Blood 151 mg/dL (75-99)
[2019-11-29 19:05] LABS: Calcium 7.7 mg/dL (8.4-10.2); Potassium 4.5 mmol/L (3.5-5.1)
[2019-11-29] MEDS: SODIUM CHLORIDE 0.9% 1,000 ML IV SCH (20:00)
--- NOTE | 2019-11-29 20:04 | PN ---
PROGRESS NOTE DATE OF SERVICE: 11/29/2019 This 64-year-old gentleman admitted with weakness and change in mental status had acute renal failure. The patient also had acute hyperkalemia, which is being treated at this time. Patient also had change in mental status, multifactorial. A 2D echo with Doppler was done which showed ejection fraction about 50% to 55%. The patient is being closely monitored. Patient apparently had opiate overdose, issues as well with IV heroin. Past medical history reviewed. Review of systems could not be taken; the patient is stuporous. CURRENT MEDICATIONS: 1. DuoNeb q.i.d. and p.r.n. 2. Celexa. 3. Haldol p.r.n. 4. Ativan. 5. Narcan. 6. Protonix. 7. Zosyn. PHYSICAL EXAMINATION: Patient is stuporous. Pulse 84, blood pressure 109/52, respiration 20, temperature 98.8, pulse ox 96% on 5 L. HEENT: Conjunctivae normal. NECK: No jugular venous distention. CARDIOVASCULAR SYSTEM: S1, S2 muffled. RESPIRATORY SYSTEM: Breath sounds diminished at the bases. A few scattered rhonchi and crackles. ABDOMEN: Soft, obese. LEGS: No edema. No swelling. NERVOUS SYSTEM: Diffusely weak. LABS: WBC 9, hemoglobin 9.6, platelets 135. Sodium 140, potassium 4.7, creatinine 6.47 and potassium 6.1. ASSESSMENT: 1. Acute renal failure, possibly acute tubular necrosis and prerenal factors. 2. Change in mental status, acute metabolic encephalopathy secondary to renal failure and possible overdose. 3. Hypotension, possibly secondary to dehydration with possible cardiogenic shock. 4. Hyperkalemia secondary to renal failure. 5. Severe metabolic acidosis secondary to renal failure. 6. Troponin 4.290, possibly acute yzi-VZ-ndznxeg-elevation myocardial infarction. 7. Increased white count. 8. Anemia, macrocytic. 9. History of overdose. 10.History of hypertension. 11.Hyperlipidemia. 12.History of back pain. 13.History of methicillin-resistant Staphylococcus aeruginosa. 14.History of cholecystectomy. 15.History of depression. 16.History of nicotine dependence. 17.History of heroin abuse. 18.History of tetrahydrocannabinol. RECOMMENDATIONS AND DISCUSSION: At this time I recommend to continue current medications, continue with the monitoring, symptomatic treatment. Repeat the creatinine. Monitor fluid/electrolyte balance closely. Haldol for agitation. Guarded prognosis because of multiple complex medical issues. Further recommendations to follow. MMODL / IJN: [id number] /
--- NOTE | 2019-11-29 22:16 | CONS ---
CONSULTATION CHIEF COMPLAINT: Drug overdose. This is a 64-year-old gentleman with history of drug abuse who presented to hospital with not being able to eat or drink and worsening mental status. Prior to that patient was in the ER with a drug overdose and received Narcan and was sent home. On his second presentation, patient was in renal failure with elevated creatinine and potassium, and he also had elevated troponin, for which Cardiology has been consulted. His EKG does not reveal acute ischemic changes. The patient had an echo done that showed normal LV function and wall motion. His troponins are elevated, without any definite pattern to them. It was 4.2. Second set was 3.4. Third set was 4.8. He is in severe renal failure with a creatinine of 6.4. It was 7.8 on his initial admission. His baseline creatinine is 1.1 from two years ago. At the time of my evaluation, patient appears confused and agitated. I cannot obtain any information from him. PAST MEDICAL HISTORY: Patient's past medical history is significant for hypertension, dyslipidemia. MEDICATIONS: Medications at home included Flomax, Prilosec, Zestril, ibuprofen, Voltaren, Celexa and Lipitor. ALLERGIES: TRAMADOL and WELLBUTRIN. Family history, social history, review of systems: I am unable to obtain from the patient. History is significant for drug abuse. PHYSICAL EXAMINATION: On exam, he appears confused, agitated, somewhat hypotensive with blood pressure of 99/60, respiratory rate is 18. Heart rate is 80. There is no jugular venous distention. Chest exam reveals good air entry bilaterally. Heart exam reveals first and second heart sounds. No gallop. Abdomen is soft. Examination of extremities did not reveal any edema. Peripheral pulses are felt. LABS: Labs show a hemoglobin of 9.6, potassium is 4.7, BUN is 97, creatinine is 6.4. ASSESSMENT: 1. Acute olz-AD-yktflef-elevation myocardial infarction. 2. Acute drug overdose. 3. Acute renal failure. PLAN: Continue with the supportive care. He is not a candidate for invasive procedures and he does not need any at this time. His echo does not show any wall motion abnormalities. The elevated troponin is probably related to the drug overdose. We will see how the patient's symptomatology resolves. MMODL / IJN: [id number] /
[2019-11-29] MEDS: LORazepam 2 MG/ML INJ IV PRN (23:05)
[2019-11-30] MEDS: HEPARIN SODIUM,PORCINE 5,000 UNIT/ML 1 ML VIAL SQ SCH ×3 (01:26→16:59)
[2019-11-30] MEDS: HALOPERIDOL LACTATE 5 MG/ML 1 ML VIAL IM PRN ×2 (01:27→07:58)
[2019-11-30] MEDS: LORazepam 2 MG/ML INJ IV PRN (04:36)
[2019-11-30] MEDS ORDERED: HALOPERIDOL LACTATE 5 MG/ML 1 ML VIAL IVP ONE ×2 (05:40→06:45)
[2019-11-30 06:34] LABS: Calcium 8.1 mg/dL (8.4-10.2); Potassium 4.4 mmol/L (3.5-5.1)
[2019-11-30 06:38] LABS: Basophils % (A) 0 %; Eosinophils # (A) 0.1 k/uL (0-0.7); Eosinophils % (A) 1 %; HCT 32.2 % (39.0-53.0); HGB 10.6 gm/dL (13.0-17.5); Lymphocytes # (A) 0.9 k/uL (1.0-4.8); Lymphocytes % (A) 9 %; MCH 31.9 pg (25.0-35.0); MCHC 32.8 g/dL (31.0-37.0); MCV 97.1 fL (80.0-100.0); Mean Platelet Volume 8.3; Monocytes # (A) 0.8 k/uL (0-1.0); Monocytes % (A) 7 %; Neutrophils # (A) 8.4 k/uL (1.3-7.7); Neutrophils % (A) 80 %; Platelet Count 165 k/uL (150-450); RBC 3.31 m/uL (4.30-5.90); RDW 14.3 % (11.5-15.5); WBC 10.5 k/uL (3.8-10.6)
[2019-11-30] MEDS: DEXMEDETOMIDINE/0.9% NACL(PMX) 400 MCG in EMPTY BAG 1 BAG IV SCH ×2 (08:19→12:43)
[2019-11-30] MEDS: SODIUM CHLORIDE 0.9% 1,000 ML IV SCH ×3 (08:28→21:14)
--- NOTE | 2019-11-30 08:38 | P.PN ---
Subjective Patient is seen in follow for acute kidney injury. Creatinine was 7.8 on admission and is 4.04 today. Creatinine in November 2017 was 1.1. Patient remains confused and agitated. he is maintained on IV fluids. Nonoliguric. Vital signs are stable. General: The patient appeared well nourished and normally developed. HEENT: Head exam is unremarkable. Neck is without jugular venous distension. LUNGS: Breath sounds decreased. HEART: Rate and Rhythm are regular. ABDOMEN: soft, nontender. EXTREMITITES: No edema. Objective - Vital Signs Vital signs: Vital Signs Temp 98.6 F 11/30/19 08:00 Pulse 135 H 11/30/19 08:00 Resp 26 H 11/30/19 08:00 BP 169/94 11/30/19 08:00 Pulse Ox 93 L 11/30/19 08:00 Intake & Output 11/29/19 11/30/19 11/30/19 18:59 06:59 18:59 Intake Total 1725 675 150 Output Total 2320 1825 200 Balance -595 -1150 -50 Weight 107.6 kg 105.8 kg Intake: IV 1625 75 Dextrose 5% in Water 1, 1625 000 ml @ 125 mls/hr IV . Q9H12M AMY with Sodium Bicarb (1 Meq/ml) 150 ml Rx#:[id number] Sodium Chloride 0.9% 1, 75 000 ml @ 75 mls/hr IV . [id number] AMY Rx#:[id number] Intake, IV Titration 100 675 75 Amount Piperacillin-Tazobactam 3 100 .375 gm In Sodium Chloride 0.9% 100 ml @ 25 mls/hr IVPB Q12HR AMY Rx #:[id number] Sodium Chloride 0.9% 1, 675 75 000 ml @ 75 mls/hr IV . [id number] AMY Rx#:[id number] Output: Urine 2320 1825 200 Other: Voiding Method Indwelling Catheter Indwelling Catheter - Labs CBC & Chem 7: 11/30/19 05:48 11/30/19 05:48 Labs: Abnormal Lab Results - Last 24 Hours (Table) 11/29/19 11/29/19 11/29/19 Range/Units 11:23 17:48 18:35 RBC (4.30-5.90) m/uL Hgb (13.0-17.5) gm/dL Hct (39.0-53.0) % Neutrophils # (1.3-7.7) k/uL Lymphocytes # (1.0-4.8) k/uL Chloride (98-107) mmol/L BUN 94 H (9-20) mg/dL Creatinine 5.37 H (0.66-1.25) mg/dL Glucose 148 H (74-99) mg/dL POC Glucose (mg/dL) 135 H 151 H (75-99) mg/dL Calcium 7.7 L (8.4-10.2) mg/dL 11/30/19 11/30/19 Range/Units 05:48 05:48 RBC 3.31 L (4.30-5.90) m/uL Hgb 10.6 L (13.0-17.5) gm/dL Hct 32.2 L (39.0-53.0) % Neutrophils # 8.4 H (1.3-7.7) k/uL Lymphocytes # 0.9 L (1.0-4.8) k/uL Chloride 111 H (98-107) mmol/L BUN 81 H (9-20) mg/dL Creatinine 4.04 H (0.66-1.25) mg/dL Glucose 136 H (74-99) mg/dL POC Glucose (mg/dL) (75-99) mg/dL Calcium 8.1 L (8.4-10.2) mg/dL Assessment and Plan Plan: Assessment: 1. Acute kidney injury secondary to ATN secondary to hemodynamic instability as well as nonsteroidals and further worsened with the use of ALBERT inhibitor. No evidence of hydronephrosis noted on kidney ultrasound. Creatinine was 1 in December 2017. No other records available. creatinine 7.8 on admission and is 4.04 today. 2. Hyperkalemia secondary to acute kidney injury, metabolic acidosis, lisinopril as well as nonsteroidals. improved with medical management. 3. Metabolic acidosis secondary to acute kidney injury status post bicarb drip. 4. Opioid abuse. 5. Hyperphosphatemia secondary to acute kidney injury. Expect improvement with improving renal function. Plan: Maintain normal saline at 75 mL an hour. Avoid nephrotoxins. Will be started on Presidex. Continue to monitor renal function and urine output. Repeat phosphorus level.
[2019-11-30] MEDS: IPRATROPIUM-ALBUTEROL 3 ML NEB INHALATION SCH ×4 (08:44→19:39)
[2019-11-30] MEDS: PANTOPRAZOLE 40 MG/10 ML VIAL IV SCH (09:20)
[2019-11-30] MEDS: TAMSULOSIN 0.4 MG CAP.ER.24H PO SCH ×3 (09:20→20:01)
[2019-11-30] MEDS: PIPERACILLIN-TAZOBACTAM 3.375 GM in SODIUM CHLORIDE 0.9% 100 ML IVPB SCH ×2 (09:21→20:01)
[2019-11-30] MEDS: CITALOPRAM HYDROBROMIDE 20 MG TAB PO SCH ×2 (09:21→09:52)
[2019-11-30] MEDS: HALOPERIDOL LACTATE 5 MG/ML 1 ML VIAL IVP PRN ×2 (09:45→12:30)
--- NOTE | 2019-11-30 09:57 | XR ---
EXAMINATION TYPE: XR chest 1V portable DATE OF EXAM: 11/30/2019 COMPARISON: 11/29/2019 INDICATION: Infiltrates TECHNIQUE: Single frontal view of the chest is obtained. FINDINGS: The heart size is normal. The pulmonary vasculature is normal. The lungs are clear. IMPRESSION: 1. Improving lung infiltrates. Resolving pulmonary edema.
[2019-11-30 12:15] LABS: Glucose,Whole Blood 142 mg/dL (75-99)
--- NOTE | 2019-11-30 14:02 | PN ---
PROGRESS NOTE Agustin is a 64-year-old gentleman who is admitted to hospital with drug overdose, remains confused, agitated. On exam, heart rate is 85 beats per minute. Blood pressure is 160/94, respiratory rate is 18. Chest exam reveals good air entry bilaterally. Heart exam reveals first and second heart sounds. No gallop. Exam of extremities did not reveal any edema. Peripheral pulses are felt. The patient's blood pressure seems controlled when he is not agitated. His echocardiogram showed normal LV function. When he is able to, we should start the patient on his medications including Zestril and Lipitor. Labs today show a hemoglobin of 10.6 potassium is 4.4, creatinine 84, BUN is 81. ASSESSMENT: 1. Drug overdose. 2. Acute renal failure. 3. Non ST-segment elevation myocardial infarction. 4. Confusion and agitation. PLAN: Continue supportive care. SHEA / KLAUS: [id number] /
[2019-11-30] MEDS ORDERED: HALOPERIDOL LACTATE 5 MG/ML 1 ML VIAL IM STA (14:14)
[2019-11-30] MEDS ORDERED: DIAZEPAM 5 MG/ML 2 ML INJ IM ONE (14:14)
--- NOTE | 2019-11-30 14:39 | P.PN ---
Subjective Progress Note Date: 11/30/19 On today's evaluation of 11/30/2019, the patient is showing improvement in the renal function. Nevertheless the patient continues to be encephalopathic and confused and agitated. Note that in terms of his acute kidney injury, creatinine started about 7.8 is down to 4.04 the patient is producing urine ou tput. His baseline creatinine is at 1.1. He is receiving IV fluids. He is nonoliguric. He was placed on Haldol yesterday cause of excessive agitation. He required several doses of Haldol which was in order a more than 10 mg. This morning, he was still agitated. He had to be restrained and for that reason I started him on Precedex drip which is running at 0.6 g per KG per hour. This helped the patient quite a bit in terms of his mentation. He is able to protect his airways. The patient had a follow-up chest x-ray done today and the chest x-ray shows improving lung infiltrates are resolving pulmonary infiltrate and the patient is currently on IV Zosyn. On today's chest x-ray of the lungs are essentially clear and the pulmonary vasculature is back to normal. He has no fever for now. Objective - Vital Signs Vital signs: Vital Signs Temp 98.5 F 11/30/19 12:00 Pulse 75 11/30/19 13:06 Resp 12 11/30/19 13:06 BP 173/88 11/30/19 13:06 Pulse Ox 95 11/30/19 13:06 Intake & Output 11/29/19 11/30/19 11/30/19 18:59 06:59 18:59 Intake Total 1725 675 612.859 Output Total 2320 1825 725 Balance -595 -1150 -112.141 Weight 107.6 kg 105.8 kg Intake: IV 1625 450 Dextrose 5% in Water 1, 1625 000 ml @ 125 mls/hr IV . Q9H12M [facility] with Sodium Bicarb (1 Meq/ml) 150 ml Rx#:[id number] Sodium Chloride 0.9% 1, 450 000 ml @ 75 mls/hr IV . [id number] [facility] Rx#:[id number] Intake, IV Titration 100 675 162.859 Amount Dexmedetomidine/0.9% NaCl 87.859 (Pmx) 400 mcg In Empty Bag 1 bag @ Titrate IV . Q0M [facility] Rx#:[id number] Piperacillin-Tazobactam 3 100 .375 gm In Sodium Chloride 0.9% 100 ml @ 25 mls/hr IVPB Q12HR [facility] Rx #:[id number] Sodium Chloride 0.9% 1, 675 75 000 ml @ 75 mls/hr IV . [id number] [facility] Rx#:[id number] Output: Urine 2320 1825 725 Other: Voiding Method Indwelling Catheter Indwelling Catheter Indwelling Catheter - Exam The patient is encephalopathic, still lethargic and agitated at times.. I think he is hallucinating and he is also having some conversations which are not clearly understandable. . He withdraws to painful stimulation in all 4extremities. Head exam was generally normal. There was no scleral icterus or corneal arcus. Mucous membranes were dry Neck was supple and without jugular venous distension, thyromegaly, or carotid bruits. Carotids were easily palpable bilaterally. There was no adenopathy. The patient is a Mallampati class IV Lungs were clear to auscultation and percussion, and with normal diaphragmatic excursion. No wheezes or rales were noted. Crackles are appreciated in the right lung base Cardiac exam revealed the PMI to be normally situated and sized. The rhythm was regular and no extrasystoles were noted during several minutes of auscultation. The first and second heart sounds were normal and physiologic splitting of the second heart sound was noted. There were no murmurs, rubs, clicks, or gallops. Abdominal exam revealed normal bowel sounds. The abdomen was soft, non-tender, and without masses, organomegaly, or appreciable enlargement of the abdominal aorta. Examination of the extremities revealed easily palpable radial, femoral and pedal pulses. There was no cyanosis, clubbing or edema. Examination of the skin revealed no evidence of significant rashes, suspicious appearing nevi or other concerning lesions. Neurologic exam the patient is withdrawing to painful semination all 4 extremities. No Babinski. No clonus. Pupils are round to the 3 mm in size slightly reactive to light. No preferential gaze. No nystagmus. No facial asymmetry. Gait and sensory function cannot be assessed. No neck stiffness. - Labs CBC & Chem 7: 11/30/19 05:48 11/30/19 05:48 Labs: Abnormal Lab Results - Last 24 Hours (Table) 11/29/19 11/29/19 11/30/19 Range/Units 17:48 18:35 05:48 RBC 3.31 L (4.30-5.90) m/uL Hgb 10.6 L (13.0-17.5) gm/dL Hct 32.2 L (39.0-53.0) % Neutrophils # 8.4 H (1.3-7.7) k/uL Lymphocytes # 0.9 L (1.0-4.8) k/uL Chloride (98-107) mmol/L BUN 94 H (9-20) mg/dL Creatinine 5.37 H (0.66-1.25) mg/dL Glucose 148 H (74-99) mg/dL POC Glucose (mg/dL) 151 H (75-99) mg/dL Calcium 7.7 L (8.4-10.2) mg/dL 11/30/19 11/30/19 Range/Units 05:48 12:12 RBC (4.30-5.90) m/uL Hgb (13.0-17.5) gm/dL Hct (39.0-53.0) % Neutrophils # (1.3-7.7) k/uL Lymphocytes # (1.0-4.8) k/uL Chloride 111 H (98-107) mmol/L BUN 81 H (9-20) mg/dL Creatinine 4.04 H (0.66-1.25) mg/dL Glucose 136 H (74-99) mg/dL POC Glucose (mg/dL) 142 H (75-99) mg/dL Calcium 8.1 L (8.4-10.2) mg/dL Assessment and Plan Plan: 1 acute kidney injury, likely an ATN secondary to dehydration and excessive utilization of nonsteroidal anti-inflammatory medications and Mason inhibitors. The patient was taking Vicoprofen on outpatient basis addition to Voltaren and the patient has been on Zestril. The renal function is improving and the creatinine is down to 4 2 acute hyperkalemia secondary to above, improved 3 acute metabolic acidosis secondary to above, improving and the patient currently is on normal saline through of 75 mL an hour 4 altered mentation secondary to above. In addition the patient possibly has a narcotic overdose which is in the form of Vicoprofen, CAT scan of the brain is negative and there are no signs of [employer] trauma or infection. No evidence of any acute pneumonia is on initial CAT scan of the brain. Neurologic exam is nonfocal. The patient continues to be agitated and he was started on Precedex drip and combination of Haldol in regards to his agitation. He has a sitter and he has restraints. No clear signs of opiate withdrawal. Pupils are still 2 mm in size and there sluggish and reactive to light., 5 possible opiate abuse 6 chronic back pain 7 acute non-ST segment elevation myocardial infarction and troponin peaked at 4.8, hemodynamically stable with a normal echocardiogram 8 acute bilateral pulmonary infiltration right more than left, consider aspiration pneumonia, improving and the chest x-ray shows clearing of the bilateral pulmonary infiltrates. 9 acute hypoxic respiratory failure currently on 2 L of oxygen by nasal cannula 10 hypertension 11 hyperlipidemia 12 obesity with a BMI of 33 Plan change IV fluids normal saline at the rate of 75 an hour Precedex for agitation Haldol for agitation Monitor renal function Avoid nephrotoxic agents Monitor urine output Chest x-ray improving Aspiration precautions Continue IV Zosyn Continue to follow
[2019-11-30] MEDS ORDERED: HYDROmorphone 1 MG/ML 1 ML SYRINGE ONE ×2 (15:13→15:18)
[2019-11-30] MEDS ORDERED: MIDAZOLAM 2 MG/2 ML VIAL ONE (15:16)
[2019-11-30] MEDS ORDERED: HYDROmorphone 1 MG/ML 1 ML SYRINGE IVP STA ×2 (15:21)
[2019-11-30] MEDS ORDERED: CISATRACURIUM 2 MG/ML 5 ML VIAL IV ONE ×2 (15:27→15:30)
[2019-11-30] MEDS ORDERED: PROPOFOL 100 ML IV ONE (15:27)
[2019-11-30] MEDS ORDERED: cloNIDine 0.3 MG/24HR PATCH TRANSDERM SCH (15:30)
[2019-11-30] MEDS: PROPOFOL 1,000 MG in EMPTY BAG 1 BAG IV SCH ×3 (15:30→21:13)
--- NOTE | 2019-11-30 16:15 | P.PCN ---
Date of Procedure: 11/30/19 Preoperative Diagnosis: altered mental status Postoperative Diagnosis: altered mental status Procedure(s) Performed: Intubation, insertion of a triple-lumen catheter Anesthesia: local Surgeon: Al Keller Estimated Blood Loss (ml): 0 Condition: critical Disposition: ICU Operative Findings: Indication: Respiratory compromise. A time-out was completed verifying correct patient, procedure, site, positioning, and implant(s) or special equipment if applicable. The patient was positioned appropriately and a #8 endotracheal tube was placed under direct laryngoscopy. The tube was anchored at 22 cm at the teeth. Correct placement was confirmed by presence of bilateral breath sounds without air sounds in the abdomen on auscultation. An end-tidal CO2 monitor was also used to confirm tracheal placement of the ET tube. A chest x-ray was ordered to assess for pneumothorax and verify endotracheal tube placement. The patient tolerated the procedure well and there were no complications. Indication: Hemodynamic monitoring/Intravenous access. A time-out was completed verifying correct patient, procedure, site, positioning, and implant(s) or special equipment if applicable. The patient was placed in a dependent position appropriate for central line placement based on the vein to be cannulated. The patients left shoulder was prepped and draped in sterile fashion. 1% Lidocaine was used to anesthetize the surrounding skin area. A triple lumen 9F Cordis catheter was introduced into the nternal jugular vein using Seldinger technique. The catheter was threaded smoothly over the guide wire and appropriate blood return was obtained. Each lumen of the catheter was evacuated of air and flushed with sterile saline. The catheter was then sutured in place to the skin and a sterile dressing applied. Perfusion to the extremity distal to the point of catheter insertion was checked and found to be adequate. The patient tolerated the procedure well and there were no complications.
[2019-11-30 16:19] LABS: ABG Base Excess 0.1 mmol/L; ABG HCO3 25 mmol/L (21-25); ABG PCO2 40 mmHg (35-45); ABG PO2 72 mmHg (83-108); ABG TCO2 26 mmol/L (19-24); Allen Test Performed? Yes
--- NOTE | 2019-11-30 16:20 | XR ---
EXAMINATION TYPE: XR chest 1V portable DATE OF EXAM: 11/30/2019 HISTORY: Shortness of breath. COMPARISON: 11/30/2019 TECHNIQUE: Single view of the chest is submitted. FINDINGS: Endotracheal tube is noted approximately 2.7 cm from the elgin. Left IJ central venous line demonstr ates its distal tip overlying the SVC. There is no evidence for focal infiltrate. There is evidence of pulmonary venous congestion without o vert failure. The heart is stable. Hilar and mediastinal structures are within normal limits. Degenerative changes are seen of the dorsal spine. IMPRESSION: 1. Endotracheal tube and left IJ central venous line as noted. Pulmonary venous congestion without o vert failure.
[2019-11-30 18:08] LABS: Glucose,Whole Blood 142 mg/dL (75-99)
[2019-11-30] MEDS: INSULIN ASPART (NovoLOG) 100 UNIT/ML VIAL SQ SCH ×2 (18:08→23:49)
--- NOTE | 2019-11-30 18:13 | PN ---
PROGRESS NOTE DATE OF SERVICE: 11/30/2019 This 64-year-old gentleman was admitted with weakness and acute renal failure, acute tubular necrosis. The patient is restless. The patient had change in mental status, multifactorial. The patient has history of possible overdose. The patient is being closely monitored at this time in ICU. The patient also had features of hypoxic respiratory failure. Past medical history reviewed. Review of systems could not be taken; the patient is confused, agitated. CURRENT MEDICATIONS: Reviewed. They include: 1. DuoNeb q.i.d. and p.r.n. 2. Celexa. 3. Catapres patch. 4. Heparin. 5. Narcan. 6. Protonix. PHYSICAL EXAMINATION: Patient is conscious, confused. Pulse 78, blood pressure 187/100; the most recent is 173/88. Respiration 24, temperature normal, pulse ox 92% on 6 L nasal cannula. HEENT: Conjunctivae normal. NECK: No jugular venous distention. CARDIOVASCULAR SYSTEM: S1, S2 muffled. RESPIRATORY SYSTEM: Breath sounds diminished at the bases. A few scattered rhonchi and crackles. ABDOMEN: Soft, obese, non-tender. LEGS: No edema. No swelling. NERVOUS SYSTEM: Diffusely weak. LABS: WBC 10.3, hemoglobin 10.6, creatinine is 4.04, calcium is 8.1. The chest x-ray done today, which was personally reviewed by me, showed bilateral infiltrates, possibly aspiration pneumonia with cardiomegaly. Dr. Keller is following the patient closely and Cardiology. The patient is mechanically ventilated, intubated because of acute respiratory failure later in the day. ASSESSMENT: 1. Acute renal failure, possible acute tubular necrosis with prerenal factors. 2. Change in mental status, acute metabolic encephalopathy secondary to renal failure with possible overdose. 3. Bilateral pneumonia, possibly aspiration, with acute hypoxic respiratory failure, on mechanical ventilation. 4. Hypotension, possibly secondary to dehydration with cardiogenic shock. 5. Hyperkalemia secondary to renal failure. 6. Severe metabolic acidosis secondary to renal failure. 7. Troponin 4.290, possibly acute wam-LQ-gnysrqn-elevation myocardial infarction. 8. Increased white count. 9. Anemia, macrocytic. 10.History of overdose. 11.History of hypertension. 12.History of hyperlipidemia. 13.History of back pain. 14.History of methicillin-resistant Staphylococcus aeruginosa. 15.History of cholecystectomy. 16.History of depression. 17.History of nicotine dependence. 18.History of heroin abuse per chart. 19.History of tetrahydrocannabinol. 20.FULL CODE. RECOMMENDATIONS AND DISCUSSION: In this 64-year-old gentleman who presented with multiple complex medical issues, we will monitor the patient closely, continue the current medications, continue with the mechanical ventilation, continue with empiric antibiotics, continue with the bronchodilators. Closely follow. Otherwise, symptomatic treatment. IV fluids cautiously. Repeat labs. Guarded prognosis because of multiple complex medical issues. Further recommendations to follow. MMODL / IJN: [id number] / MTDD
--- NOTE | 2019-11-30 19:53 | XR ---
EXAMINATION TYPE: XR chest 1V portable DATE OF EXAM: 11/30/2019 COMPARISON: Today HISTORY: Respiratory failure TECHNIQUE: Single view FINDINGS: Endotracheal tube is 3 cm from the elgin. There is some pulmonary vascular congestion and pulmonary interstitial edema. Heart is borderline enlarged. There is left jugular catheter with tip i n the superior vena cava. IMPRESSION: Pulmonary interstitial edema unchanged compared to exam 4 hours ago.
[2019-11-30 23:41] LABS: Glucose,Whole Blood 120 mg/dL (75-99)
[2019-12-01] MEDS: HEPARIN SODIUM,PORCINE 5,000 UNIT/ML 1 ML VIAL SQ SCH ×4 (00:10→23:28)
[2019-12-01] MEDS: PROPOFOL 1,000 MG in EMPTY BAG 1 BAG IV SCH ×9 (00:13→23:42)
[2019-12-01 05:10] LABS: ABG Base Excess 1.8 mmol/L; ABG HCO3 27 mmol/L (21-25); ABG Oxygen Saturation 97.8 % (94-97); ABG PCO2 43 mmHg (35-45); ABG PO2 117 mmHg (83-108); ABG TCO2 28 mmol/L (19-24); Allen Test Performed? Yes
[2019-12-01] MEDS: INSULIN ASPART (NovoLOG) 100 UNIT/ML VIAL SQ SCH ×4 (05:45→23:36)
[2019-12-01 05:46] LABS: Glucose,Whole Blood 104 mg/dL (75-99)
[2019-12-01 05:52] LABS: Glucose,Whole Blood 122 mg/dL (75-99)
[2019-12-01 06:34] LABS: Basophils % (A) 0 %; Eosinophils # (A) 0.3 k/uL (0-0.7); Eosinophils % (A) 3 %; HCT 31.5 % (39.0-53.0); HGB 10.4 gm/dL (13.0-17.5); Lymphocytes # (A) 1.4 k/uL (1.0-4.8); Lymphocytes % (A) 17 %; MCH 31.8 pg (25.0-35.0); MCHC 32.9 g/dL (31.0-37.0); MCV 96.9 fL (80.0-100.0); Mean Platelet Volume 8.2; Monocytes # (A) 0.5 k/uL (0-1.0); Monocytes % (A) 6 %; Neutrophils # (A) 5.8 k/uL (1.3-7.7); Neutrophils % (A) 71 %; Platelet Count 193 k/uL (150-450); RBC 3.26 m/uL (4.30-5.90); RDW 14.1 % (11.5-15.5); WBC 8.3 k/uL (3.8-10.6)
[2019-12-01 06:43] LABS: Calcium 8.1 mg/dL (8.4-10.2); Phosphorus 3.4 mg/dL (2.5-4.5); Potassium 4.2 mmol/L (3.5-5.1)
--- NOTE | 2019-12-01 06:47 | XR ---
EXAMINATION TYPE: XR chest 1V portable DATE OF EXAM: 12/01/2019 HISTORY: Tube placement. REFERENCE: Previous study dated 11/30/2019. FINDINGS: The left shoulder arthroplasty is in place. Patient is ET tube, NG tube and left internal jugular catheter remain in place, unchanged in appearan ce. Heart size upper limits of normal. There is bibasilar airspace disease. There are bilateral effusions . IMPRESSION: 1. WORSENING BIBASILAR INFILTRATES. 2. SMALL, BILATERAL EFFUSIONS.
[2019-12-01] MEDS ORDERED: DEXTROSE 5% IN WATER 1,000 ML IV ONE (07:52)
[2019-12-01] MEDS: IPRATROPIUM-ALBUTEROL 3 ML NEB INHALATION SCH ×4 (08:03→19:35)
--- NOTE | 2019-12-01 08:27 | P.PN ---
Subjective Patient is seen in follow for acute kidney injury. Creatinine was 7.8 on admission and is 2.09 today. Creatinine in November 2017 was 1.1. patient was extremely confused and agitated and was intubated yesterday. He is maintained on IV fluids. Nonoliguric. Sodium level 151 today. Vital signs are stable. General: The patient appeared well nourished and normally developed. HEENT: Head exam is unremarkable. Neck is without jugular venous distension. Intubated. LUNGS: Breath sounds decreased. HEART: Rate and Rhythm are regular. ABDOMEN: soft, nontender. EXTREMITITES: No edema. Objective - Vital Signs Vital signs: Vital Signs Temp 97.8 F 12/01/19 08:01 Pulse 50 L 12/01/19 08:17 Resp 24 12/01/19 08:01 BP 135/65 12/01/19 08:01 Pulse Ox 96 12/01/19 08:01 Intake & Output 11/30/19 12/01/19 12/01/19 18:59 06:59 18:59 Intake Total 7942.906 4444.428 75 Output Total 1325 960 50 Balance -256.733 471.428 25 Weight 103.9 kg Intake: IV 825 975 75 Dextrose 5% in Water 1, 75 000 ml @ 75 mls/hr IV . [id number] [facility] Rx#:[id number] Sodium Chloride 0.9% 1, 825 975 000 ml @ 75 mls/hr IV . [id number] [facility] Rx#:[id number] Intake, IV Titration 243.267 456.428 Amount Dexmedetomidine/0.9% NaCl 87.859 (Pmx) 400 mcg In Empty Bag 1 bag @ Titrate IV . Q0M [facility] Rx#:[id number] Piperacillin-Tazobactam 3 100 .375 gm In Sodium Chloride 0.9% 100 ml @ 25 mls/hr IVPB Q12HR [facility] Rx #:[id number] Propofol 1,000 mg In 80.408 356.428 Empty Bag 1 bag @ Titrate IV .Q0M [facility] Rx#: [id number] Sodium Chloride 0.9% 1, 75 000 ml @ 75 mls/hr IV . [id number] [facility] Rx#:[id number] Output: Urine 1325 960 50 Other: Voiding Method Indwelling Catheter Indwelling Catheter Indwelling Catheter - Labs CBC & Chem 7: 12/01/19 05:59 12/01/19 05:59 Labs: Abnormal Lab Results - Last 24 Hours (Table) 11/30/19 11/30/19 11/30/19 Range/Units 12:12 16:16 18:06 RBC (4.30-5.90) m/uL Hgb (13.0-17.5) gm/dL Hct (39.0-53.0) % ABG pO2 72 L (83-108) mmHg ABG HCO3 (21-25) mmol/L ABG Total CO2 26 H (19-24) mmol/L ABG O2 Saturation 93.0 L (94-97) % Sodium (137-145) mmol/L Chloride (98-107) mmol/L BUN (9-20) mg/dL Creatinine (0.66-1.25) mg/dL Glucose (74-99) mg/dL POC Glucose (mg/dL) 142 H 142 H (75-99) mg/dL Calcium (8.4-10.2) mg/dL 11/30/19 12/01/19 12/01/19 Range/Units 23:39 05:05 05:44 RBC (4.30-5.90) m/uL Hgb (13.0-17.5) gm/dL Hct (39.0-53.0) % ABG pO2 117 H (83-108) mmHg ABG HCO3 27 H (21-25) mmol/L ABG Total CO2 28 H (19-24) mmol/L ABG O2 Saturation 97.8 H (94-97) % Sodium (137-145) mmol/L Chloride (98-107) mmol/L BUN (9-20) mg/dL Creatinine (0.66-1.25) mg/dL Glucose (74-99) mg/dL POC Glucose (mg/dL) 120 H 104 H (75-99) mg/dL Calcium (8.4-10.2) mg/dL 12/01/19 12/01/19 12/01/19 Range/Units 05:51 05:59 05:59 RBC 3.26 L (4.30-5.90) m/uL Hgb 10.4 L (13.0-17.5) gm/dL Hct 31.5 L (39.0-53.0) % ABG pO2 (83-108) mmHg ABG HCO3 (21-25) mmol/L ABG Total CO2 (19-24) mmol/L ABG O2 Saturation (94-97) % Sodium 151 H (137-145) mmol/L Chloride 118 H (98-107) mmol/L BUN 63 H (9-20) mg/dL Creatinine 2.09 H (0.66-1.25) mg/dL Glucose 107 H (74-99) mg/dL POC Glucose (mg/dL) 122 H (75-99) mg/dL Calcium 8.1 L (8.4-10.2) mg/dL Assessment and Plan Plan: Assessment: 1. Acute kidney injury secondary to ATN secondary to hemodynamic instability as well as nonsteroidals and further worsened with the use of ALBERT inhibitor. No evidence of hydronephrosis noted on kidney ultrasound. Creatinine was 1 in December 2017. No other records available. creatinine 7.8 on admission and is 2.09 today. 2. Hyperkalemia secondary to acute kidney injury, metabolic acidosis, lisinopril as well as nonsteroidals. Improved with medical management. 3. Metabolic acidosis secondary to acute kidney injury status post bicarb drip. 4. Opioid abuse. 5. Hyperphosphatemia secondary to acute kidney injury. Resolved. 6. Hypernatremia secondary to free water deficit and lack of oral water intake. Plan: Discontinue normal saline. Start D5W to be run at 75 mL an hour. Repeat sodium level at 5 PM. Avoid nephrotoxins. Continue to monitor renal function and urine output.
[2019-12-01] MEDS: TAMSULOSIN 0.4 MG CAP.ER.24H PO SCH ×2 (08:31→19:28)
[2019-12-01] MEDS: CITALOPRAM HYDROBROMIDE 20 MG TAB PO SCH (08:31)
[2019-12-01] MEDS: PIPERACILLIN-TAZOBACTAM 3.375 GM in SODIUM CHLORIDE 0.9% 100 ML IVPB SCH ×3 (08:31→23:31)
[2019-12-01] MEDS: PANTOPRAZOLE 40 MG/10 ML VIAL IV SCH (08:35)
[2019-12-01] MEDS: ASPIRIN 81 MG PO SCH (08:57)
[2019-12-01] MEDS: ATORVASTATIN 40 MG TAB PO SCH (08:57)
[2019-12-01] MEDS ORDERED: LISINOPRIL 5 MG TAB PO SCH (09:00)
--- NOTE | 2019-12-01 11:08 | PN ---
PROGRESS NOTE 64-year-old gentleman who is admitted to hospital with drug overdose and had a non ST- segment elevation SD. He was confused, agitated and combative. Due to this, he was intubated and vented. This morning he is sedated. Heart rate is normal. Blood pressure is well controlled. The patient is currently on aspirin. He will receive his Lipitor. I am going to hold off on the lisinopril because he still has renal insufficiency. On exam, patient is intubated on vent, sedated. Blood gases show a pH of 7.4, potassium is 4.2, creatinine is 2. BUN is 63, but the renal functions have improved compared to where we were. When he first came, it was 7. Chest exam reveals good air entry bilaterally heart exam reveals first and second heart sounds. No gallop. Exam of extremities did not reveal any edema. Peripheral pulses are felt. ASSESSMENT: 1. Status post non ST-segment elevation myocardial infarction. 2. Drug overdose with renal failure. 3. Respiratory failure. PLAN: We will continue current supportive care. We will hold off on ALBERT inhibitors at this time. Will give aspirin and Lipitor and if necessary we will start him on Norvasc for blood pressure. MMODL / IJN: [id number] /
[2019-12-01 11:38] LABS: Glucose,Whole Blood 123 mg/dL (75-99)
--- NOTE | 2019-12-01 13:42 | P.PN ---
Subjective Progress Note Date: 12/01/19 On 12/01/2019, the patient is intubated on a mechanical ventilator. Please note that the patient was excessively agitated and he was not responding to Precedex, Haldol and Dilaudid there was given a sleep to control his agitation. To keep thinks safe and protect his airways, I ended up putting the patient propofol and intubated the patient yesterday without any major difficulties or complications. This morning, the patient remains sedated on propofol and is calm and comfortable. Records running at 50 g per KG per minute. The patient on assist control mode of ventilation at the rate of 24 with a tidal volume of 500 and FiO2 of 50% with a PEEP of 5. PH is at 7.4 with a pCO2 of 43 and pO2 of 117. The patient will be started on enteral feeding for nutritional support. Chest x-ray shows some interstitial infiltrates bilaterally more so on the right and the patient remains on IV Zosyn. He is producing adequate amount of urine output. His urine output is decent and the patient continues to show improvement in the creatinine which is down to 2.09 with a mean of 63. Sodium is at 151 and based on that the IV fluids and this patient to D5 water at the rate of 75. Meanwhile, the patient was not given a sedation holiday and the patient is calm and comfortable for now. No fever. No cardiac arrhythmias have been noted. No other significant events otherwise post intubation. Objective - Vital Signs Vital signs: Vital Signs Temp 98 F 12/01/19 12:02 Pulse 54 L 12/01/19 13:02 Resp 24 12/01/19 13:02 BP 126/56 12/01/19 13:02 Pulse Ox 95 12/01/19 13:02 Intake & Output 11/30/19 12/01/19 12/01/19 18:59 06:59 18:59 Intake Total 9715.964 3944.428 756.825 Output Total 1325 960 870 Balance -256.733 471.428 -113.175 Weight 103.9 kg 101.877 kg Intake: IV 825 975 375 Dextrose 5% in Water 1, 375 000 ml @ 75 mls/hr IV . [id number] [facility] Rx#:[id number] Sodium Chloride 0.9% 1, 825 975 000 ml @ 75 mls/hr IV . [id number] [facility] Rx#:[id number] Intake, IV Titration 243.267 456.428 281.825 Amount Dexmedetomidine/0.9% NaCl 87.859 (Pmx) 400 mcg In Empty Bag 1 bag @ Titrate IV . Q0M [facility] Rx#:[id number] Piperacillin-Tazobactam 3 100 100 .375 gm In Sodium Chloride 0.9% 100 ml @ 25 mls/hr IVPB Q12HR [facility] Rx #:[id number] Propofol 1,000 mg In 80.408 356.428 181.825 Empty Bag 1 bag @ Titrate IV .Q0M [facility] Rx#: [id number] Sodium Chloride 0.9% 1, 75 000 ml @ 75 mls/hr IV . [id number] [facility] Rx#:[id number] Other 100 Output: Gastric Drainage 450 Urine 1325 960 420 Other: Voiding Method Indwelling Catheter Indwelling Catheter Indwelling Catheter - Exam The patient is was sedated and patient is calm and comfortable likely distress intubated on a mechanical ventilator. Orogastric and orotracheal tube are both in place. Head exam was generally normal. There was no scleral icterus or corneal arcus. Mucous membranes were moist. Neck was supple and without jugular venous distension, thyromegaly, or carotid bruits. Carotids were easily palpable bilaterally. There was no adenopathy. The patient is a Mallampati class IV Lungs were clear to auscultation and percussion, and with normal diaphragmatic excursion. No wheezes or rales were noted. Crackles are appreciated in the right lung base Cardiac exam revealed the PMI to be normally situated and sized. The rhythm was regular and no extrasystoles were noted during several minutes of auscultation. The first and second heart sounds were normal and physiologic splitting of the second heart sound was noted. There were no murmurs, rubs, clicks, or gallops. Abdominal exam revealed normal bowel sounds. The abdomen was soft, non-tender, and without masses, organomegaly, or appreciable enlargement of the abdominal aorta. Examination of the extremities revealed easily palpable radial, femoral and pedal pulses. There was no cyanosis, clubbing or edema. Examination of the skin revealed no evidence of significant rashes, suspicious appearing nevi or other concerning lesions. Neurologic the patient is sedated and the patient is calm and comfortable synchronous with the mechanical ventilator. - Labs CBC & Chem 7: 12/01/19 05:59 12/01/19 05:59 Labs: Abnormal Lab Results - Last 24 Hours (Table) 11/30/19 11/30/19 11/30/19 Range/Units 16:16 18:06 23:39 RBC (4.30-5.90) m/uL Hgb (13.0-17.5) gm/dL Hct (39.0-53.0) % ABG pO2 72 L (83-108) mmHg ABG HCO3 (21-25) mmol/L ABG Total CO2 26 H (19-24) mmol/L ABG O2 Saturation 93.0 L (94-97) % Sodium (137-145) mmol/L Chloride (98-107) mmol/L BUN (9-20) mg/dL Creatinine (0.66-1.25) mg/dL Glucose (74-99) mg/dL POC Glucose (mg/dL) 142 H 120 H (75-99) mg/dL Calcium (8.4-10.2) mg/dL 12/01/19 12/01/19 12/01/19 Range/Units 05:05 05:44 05:51 RBC (4.30-5.90) m/uL Hgb (13.0-17.5) gm/dL Hct (39.0-53.0) % ABG pO2 117 H (83-108) mmHg ABG HCO3 27 H (21-25) mmol/L ABG Total CO2 28 H (19-24) mmol/L ABG O2 Saturation 97.8 H (94-97) % Sodium (137-145) mmol/L Chloride (98-107) mmol/L BUN (9-20) mg/dL Creatinine (0.66-1.25) mg/dL Glucose (74-99) mg/dL POC Glucose (mg/dL) 104 H 122 H (75-99) mg/dL Calcium (8.4-10.2) mg/dL 12/01/19 12/01/19 12/01/19 Range/Units 05:59 05:59 11:36 RBC 3.26 L (4.30-5.90) m/uL Hgb 10.4 L (13.0-17.5) gm/dL Hct 31.5 L (39.0-53.0) % ABG pO2 (83-108) mmHg ABG HCO3 (21-25) mmol/L ABG Total CO2 (19-24) mmol/L ABG O2 Saturation (94-97) % Sodium 151 H (137-145) mmol/L Chloride 118 H (98-107) mmol/L BUN 63 H (9-20) mg/dL Creatinine 2.09 H (0.66-1.25) mg/dL Glucose 107 H (74-99) mg/dL POC Glucose (mg/dL) 123 H (75-99) mg/dL Calcium 8.1 L (8.4-10.2) mg/dL Assessment and Plan Plan: 1 acute kidney injury, likely an ATN secondary to dehydration and excessive utilization of nonsteroidal anti-inflammatory medications and Mason inhibitors. The patient was taking Vicoprofen on outpatient basis addition to Voltaren and the patient has been on Zestril. The renal function is improving and the creatinine is down to 2 and the patient is nonoliguric producing adequate amount of urine output. 2 acute hyperkalemia that recovered and the patient has developed hypernatremia and the patient was placed on D5 water at the rate of 75 mL an hour. 3 acute metabolic acidosis secondary to above, improvied 4 acute hypoxic respiratory failure. The patient had significant agitation altered mentation secondary to above. I I suspect also opiate withdrawal well. The patient was encephalopathic and the previous and very much agitated. To protect his airways and to maintain safety, and I ended up sedating this patient with propofol and put him on a mechanical ventilator. Chest x-ray still showing some infiltration of the right lung which could be some interstitial edema/aspiration. Still on IV Zosyn. 5 possible opiate abuse 6 chronic back pain 7 acute non-ST segment elevation myocardial infarction and troponin peaked at 4.8, hemodynamically stable with a normal echocardiogram 8 acute bilateral pulmonary infiltration right more than left, consider aspiration pneumonia, improving and the chest x-ray shows clearing of the bilateral pulmonary infiltrates. 9 acute hypoxic respiratory failure, currently intubated on a mechanical ventilator. 10 hypertension 11 hyperlipidemia 12 obesity with a BMI of 33 Plan change IV fluids D5 water at the rate of 75 an hour Monitor sodium level Monitor renal function Avoid nephrotoxic agents Continue vent support Continue IV Zosyn We will offer the patient is sedation holiday tomorrow once the renal function is fully normalized Initiate enteral feeding for nutritional support A triple lumen catheter was inserted We'll continue to follow. Condition is critical and this evaluation was done and more than 30 minutes. Time with Patient: Greater than 30
[2019-12-01 17:38] LABS: Glucose,Whole Blood 125 mg/dL (75-99)
[2019-12-01] MEDS: CHLORHEXIDINE GLUCONATE 15 ML CUP MUCOUS MEM SCH (20:04)
--- NOTE | 2019-12-01 22:53 | PN ---
PROGRESS NOTE DATE OF SERVICE: 12/01/2019 This 64-year-old gentleman who was admitted with weakness and acute renal failure also had significant substance abuse issues. The patient was agitated and unable to be controlled and the patient had acute hypoxic respiratory failure. Patient mechanically intubated at this time. Dr. Keller is following the patient closely. A chest x-ray was done today which was reviewed personally by me showed some minimal infiltrate bilateral possibly right more than the left. The patient being closely monitored. Past medical history reviewed. Review of systems could not be taken, the patient mechanically sedated. CURRENT MEDICATIONS: Reviewed and include: DuoNeb q.i.d. and p.r.n., Aspirin, Lipitor, Peridex, Celexa, Heparin, NovoLog, Narcan, Protonix, Zosyn IV, Flomax. PHYSICAL EXAMINATION: Patient is mechanically ventilated and sedated. Pulse 55, blood pressure is 145/84, respiration 20, temp 98.1, pulse ox 94% on mechanical vent 50% FiO2. Vent settings are noted. HEENT: Conjunctivae normal. Oral mucosa moist. NECK is no jugular venous distention. No carotid bruit. No lymph node enlargement. CARDIOVASCULAR system: S1, S2 muffled. RESPIRATORY: Breath sounds diminished in the bases. Bilateral scattered rhonchi and crackles. ABDOMEN: Soft. Nontender. LEGS are no edema. No swelling. NERVOUS SYSTEM: No focal deficits. LABS: WBC 8.2, hemoglobin 10.4, sodium 151, and creatinine is 2.09. ASSESSMENT: 1. Acute renal failure possible acute tubular necrosis with prerenal factors. 2. Acute hypoxic respiratory failure on mechanical ventilation. 3. Change in mental status, acute metabolic acidosis secondary to renal failure and possible overdose and withdrawal. 4. Hypernatremia. 5. Acute bilateral pneumonia possibly aspiration pneumonia with acute hypoxic respiratory failure, on mechanical ventilation. 6. Hypotension, possibly secondary to dehydration and cardiogenic shock. 7. Hyperkalemia secondary to renal failure. 8. Severe metabolic acidosis secondary to renal failure. 9. Troponin 4.290 possibly acute wbr-PI-isszcmm-elevation myocardial infarction present on admission. 10.Increased WBC. 11.Anemia macrocytic. 12.History of possibly heroin overdose. 13.Hypertension. 14.Hyperlipidemia. 15.Back pain. 16.History of MRSA. 17.History of cholecystectomy. 18.History of depression. 19.Nicotine dependence. 20.History of heroin abuse per chart. 21.History of THC. 22.FULL CODE. RECOMMENDATIONS AND DISCUSSION: I recommend to continue current medications, symptomatic treatment. Mechanical ventilation. Bronchodilators. Monitor creatinine closely. Change the IV fluids to dextrose. Closely follow with multiple consultants. Broad-spectrum IV antibiotics. Follow the cultures. Prognosis extremely guarded because of multiple complex medical issues as mentioned earlier. Further recommendations to follow. Mechanical ventilation per Dr. Keller. MMLIZETHL / IJN: [id number] /
[2019-12-01 23:38] LABS: Glucose,Whole Blood 116 mg/dL (75-99)
[2019-12-02] MEDS: PROPOFOL 1,000 MG in EMPTY BAG 1 BAG IV SCH ×5 (01:57→21:57)
[2019-12-02] MEDS: MORPHINE SULFATE 2 MG/ML SYRINGE IVP PRN ×2 (02:32→19:54)
[2019-12-02 05:00] LABS: ABG Base Excess 2.7 mmol/L; ABG HCO3 26 mmol/L (21-25); ABG Oxygen Saturation 97.6 % (94-97); ABG PCO2 36 mmHg (35-45); ABG PH 7.47 (7.35-7.45); ABG PO2 104 mmHg (83-108); ABG TCO2 28 mmol/L (19-24); Allen Test Performed? Yes
[2019-12-02 05:28] LABS: Basophils % (A) 0 %; Eosinophils # (A) 0.5 k/uL (0-0.7); Eosinophils % (A) 5 %; HCT 31.5 % (39.0-53.0); HGB 10.4 gm/dL (13.0-17.5); Lymphocytes # (A) 1.7 k/uL (1.0-4.8); Lymphocytes % (A) 17 %; MCH 32.1 pg (25.0-35.0); MCHC 33.2 g/dL (31.0-37.0); MCV 96.9 fL (80.0-100.0); Mean Platelet Volume 8.8; Monocytes # (A) 0.5 k/uL (0-1.0); Monocytes % (A) 5 %; Neutrophils % (A) 70 %; Platelet Count 166 k/uL (150-450); RBC 3.25 m/uL (4.30-5.90); RDW 14.1 % (11.5-15.5)
[2019-12-02 05:32] LABS: Calcium 8.3 mg/dL (8.4-10.2)
[2019-12-02] MEDS: INSULIN ASPART (NovoLOG) 100 UNIT/ML VIAL SQ SCH ×3 (05:42→19:05)
[2019-12-02 05:43] LABS: Glucose,Whole Blood 117 mg/dL (75-99)
[2019-12-02 05:52] LABS: Potassium 4.4 mmol/L (3.5-5.1)
--- NOTE | 2019-12-02 06:24 | XR ---
EXAMINATION TYPE: XR chest 1V portable DATE OF EXAM: 12/02/2019 HISTORY: Tube placement. REFERENCE: Previous study dated 12/01/2019. FINDINGS: The left shoulder arthroplasty is in place. The patient's ET tube, NG tube and left interna l jugular catheter remain in place, unchanged in appearance. The heart is enlarged. There is vascular congestion and subtle interstitial change. Aeration at the l osiris bases has improved. IMPRESSION: 1. IMPROVED AERATION, BOTH LUNG BASES. 2. FINDINGS SUSPICIOUS FOR MILD PULMONARY EDEMA.
[2019-12-02] MEDS: IPRATROPIUM-ALBUTEROL 3 ML NEB INHALATION SCH ×4 (07:36→19:56)
--- NOTE | 2019-12-02 08:34 | P.PN ---
Subjective Patient is seen in follow for acute kidney injury. Creatinine was 7.8 on admission and is 1.46 today. Creatinine in November 2017 was 1.1. Remains in tubated. He is maintained on tube feeding with water flushes. Sodium level down to 145 today. Nonoliguric. Vital signs are stable. General: The patient appeared well nourished and normally developed. HEENT: Head exam is unremarkable. Neck is without jugular venous distension. Intubated. LUNGS: Breath sounds decreased. HEART: Rate and Rhythm are regular. ABDOMEN: soft, nontender. EXTREMITITES: No edema. Objective - Vital Signs Vital signs: Vital Signs Temp 97.9 F 12/02/19 04:00 Pulse 50 L 12/02/19 08:03 Resp 24 12/02/19 07:00 BP 166/81 12/02/19 07:00 Pulse Ox 98 12/02/19 07:00 Intake & Output 12/01/19 12/02/19 12/02/19 18:59 06:59 18:59 Intake Total 4677.298 8812.619 70.716 Output Total 1345 610 40 Balance 416.248 619.619 30.716 Weight 101.877 kg 104.3 kg Intake: IV 435 120 10 0.9NS 60 120 10 Dextrose 5% in Water 1, 375 000 ml @ 75 mls/hr IV . [id number] [facility] Rx#:[id number] Intake, IV Titration 566.248 329.619 45.716 Amount Piperacillin-Tazobactam 3 100 .375 gm In Sodium Chloride 0.9% 100 ml @ 25 mls/hr IVPB Q12HR [facility] Rx #:[id number] Piperacillin-Tazobactam 3 100 .375 gm In Sodium Chloride 0.9% 100 ml @ 25 mls/hr IVPB Q8HR [facility] Rx# :[id number] Propofol 1,000 mg In 366.248 329.619 45.716 Empty Bag 1 bag @ Titrate IV .Q0M [facility] Rx#: [id number] Tube Feeding 60 180 15 Other 700 600 Output: Gastric Drainage 450 Urine 895 610 40 Other: Voiding Method Indwelling Catheter Indwelling Catheter - Labs CBC & Chem 7: 12/02/19 04:01 12/02/19 04:01 Labs: Abnormal Lab Results - Last 24 Hours (Table) 12/01/19 12/01/19 12/01/19 Range/Units 11:36 16:45 17:37 RBC (4.30-5.90) m/uL Hgb (13.0-17.5) gm/dL Hct (39.0-53.0) % ABG pH (7.35-7.45) ABG HCO3 (21-25) mmol/L ABG Total CO2 (19-24) mmol/L ABG O2 Saturation (94-97) % Sodium 147 H (137-145) mmol/L Chloride (98-107) mmol/L BUN (9-20) mg/dL Creatinine (0.66-1.25) mg/dL Glucose (74-99) mg/dL POC Glucose (mg/dL) 123 H 125 H (75-99) mg/dL Calcium (8.4-10.2) mg/dL 12/01/19 12/02/19 12/02/19 Range/Units 23:36 04:01 04:01 RBC 3.25 L (4.30-5.90) m/uL Hgb 10.4 L (13.0-17.5) gm/dL Hct 31.5 L (39.0-53.0) % ABG pH (7.35-7.45) ABG HCO3 (21-25) mmol/L ABG Total CO2 (19-24) mmol/L ABG O2 Saturation (94-97) % Sodium (137-145) mmol/L Chloride 115 H (98-107) mmol/L BUN 47 H (9-20) mg/dL Creatinine 1.46 H (0.66-1.25) mg/dL Glucose 103 H (74-99) mg/dL POC Glucose (mg/dL) 116 H (75-99) mg/dL Calcium 8.3 L (8.4-10.2) mg/dL 12/02/19 12/02/19 Range/Units 04:55 05:41 RBC (4.30-5.90) m/uL Hgb (13.0-17.5) gm/dL Hct (39.0-53.0) % ABG pH 7.47 H (7.35-7.45) ABG HCO3 26 H (21-25) mmol/L ABG Total CO2 28 H (19-24) mmol/L ABG O2 Saturation 97.6 H (94-97) % Sodium (137-145) mmol/L Chloride (98-107) mmol/L BUN (9-20) mg/dL Creatinine (0.66-1.25) mg/dL Glucose (74-99) mg/dL POC Glucose (mg/dL) 117 H (75-99) mg/dL Calcium (8.4-10.2) mg/dL Assessment and Plan Plan: Assessment: 1. Acute kidney injury secondary to ATN secondary to hemodynamic instability as well as nonsteroidals and further worsened with the use of ALBERT inhibitor. No evidence of hydronephrosis noted on kidney ultrasound. Creatinine was 1 in December 2017. No other records available. Creatinine 7.8 on admission and is 1.46 today. 2. Hyperkalemia secondary to acute kidney injury, metabolic acidosis, lisinopril as well as nonsteroidals. Improved with medical management. 3. Metabolic acidosis secondary to acute kidney injury status post bicarb drip. 4. Opioid abuse. 5. Hyperphosphatemia secondary to acute kidney injury. Resolved. 6. Hypernatremia secondary to free water deficit and lack of oral water intake. Improving. Plan: Maintain tube feeding with free water flushes at 300 mL every 6 hours. Avoid nephrotoxins. Continue to monitor renal function and urine output. Wean FiO2. Repeat electrolytes in the morning.
[2019-12-02] MEDS: TAMSULOSIN 0.4 MG CAP.ER.24H PO SCH ×2 (09:36→19:51)
[2019-12-02] MEDS: ATORVASTATIN 40 MG TAB PO SCH (09:36)
[2019-12-02] MEDS: CHLORHEXIDINE GLUCONATE 15 ML CUP MUCOUS MEM SCH ×2 (09:36→19:54)
[2019-12-02] MEDS: CITALOPRAM HYDROBROMIDE 20 MG TAB PO SCH (09:37)
[2019-12-02] MEDS: HEPARIN SODIUM,PORCINE 5,000 UNIT/ML 1 ML VIAL SQ SCH ×2 (09:37→17:39)
[2019-12-02] MEDS: PANTOPRAZOLE 40 MG/10 ML VIAL IV SCH (09:37)
[2019-12-02] MEDS: PIPERACILLIN-TAZOBACTAM 3.375 GM in SODIUM CHLORIDE 0.9% 100 ML IVPB SCH ×2 (09:37→16:45)
[2019-12-02] MEDS: ASPIRIN 81 MG PO SCH (09:37)
[2019-12-02] MEDS: amLODIPine 10 MG TAB PO SCH (09:39)
--- NOTE | 2019-12-02 10:27 | PN ---
PROGRESS NOTE 64-year-old gentleman was admitted to the hospital with drug overdose, non ST-segment elevation LA and subsequently because of increasing confusion and agitation, was intubated, vented and sedated. This morning, his heart rate is 50 beats per minute. Blood pressure is 166/81, respiratory rate 18. Chest exam reveals good air entry bilaterally. Heart exam reveals first and second heart sounds. No gallop. Exam of extremities did not reveal any edema. Peripheral pulses are felt. ASSESSMENT: 1. Acute drug overdose. 2. Respiratory failure. 3. Confusion and agitation. 4. Non ST-segment elevation myocardial infarction. PLAN: I am going to add amlodipine 10 mg daily because of the elevated blood pressure. MMODL / IJN: [id number] /
--- NOTE | 2019-12-02 11:14 | P.PN ---
Subjective Progress Note Date: 12/02/19 On 12/02/2019 the patient remains intubated. I will keep him intubated and sedated from the 24 hours. I will ultimately give him a sedation holiday tomorrow to evaluate his underlying mentation and assess his readiness for further weaning. At this point in time, she is propofol running at 50 mg per KG per minute. She remains on a mechanical ventilator at a volume of 500 and FiO2 of 40% with a PEEP of 5. He is receiving enteral feeding with vital high protein currently running at 15 mL an hour. The blood gases from today showed a pH of 7.47 with a pCO2 of 36 and pO2 of 104. This was on FiO2 of 50%. Chest x- ray showed no interval change and the patient remains on empiric antibiotic coverage with IV Zosyn. On his blood work, the patient's sodium level is improving. He was taken off the D5 water. He is having further improvement in renal function and the creatinine is down to 1.4 and his BUN is at 145. Potassium level is normal at 4.4. No other significant events overnight. No s ignificant orotracheal secretions. No fever. He remains on IV Zosyn. Objective - Vital Signs Vital signs: Vital Signs Temp 97.9 F 12/02/19 04:00 Pulse 50 L 12/02/19 08:03 Resp 24 12/02/19 07:00 BP 166/81 12/02/19 07:00 Pulse Ox 98 12/02/19 07:00 Intake & Output 12/01/19 12/02/19 12/02/19 18:59 06:59 18:59 Intake Total 5268.738 3172.619 70.716 Output Total 1345 610 40 Balance 416.248 619.619 30.716 Weight 101.877 kg 104.3 kg Intake: IV 435 120 10 0.9NS 60 120 10 Dextrose 5% in Water 1, 375 000 ml @ 75 mls/hr IV . [id number] [facility] Rx#:[id number] Intake, IV Titration 566.248 329.619 45.716 Amount Piperacillin-Tazobactam 3 100 .375 gm In Sodium Chloride 0.9% 100 ml @ 25 mls/hr IVPB Q12HR [facility] Rx #:[id number] Piperacillin-Tazobactam 3 100 .375 gm In Sodium Chloride 0.9% 100 ml @ 25 mls/hr IVPB Q8HR [facility] Rx# :[id number] Propofol 1,000 mg In 366.248 329.619 45.716 Empty Bag 1 bag @ Titrate IV .Q0M [facility] Rx#: [id number] Tube Feeding 60 180 15 Other 700 600 Output: Gastric Drainage 450 Urine 895 610 40 Other: Voiding Method Indwelling Catheter Indwelling Catheter - Exam The patient is was sedated and patient is calm and comfortable likely distress intubated on a mechanical ventilator. Orogastric and orotracheal tube are both in place. Head exam was generally normal. There was no scleral icterus or corneal arcus. Mucous membranes were moist. Neck was supple and without jugular venous distension, thyromegaly, or carotid bruits. Carotids were easily palpable bilaterally. There was no adenopathy. The patient is a Mallampati class IV Lungs were clear to auscultation and percussion, and with normal diaphragmatic excursion. No wheezes or rales were noted. Crackles are appreciated in the right lung base Cardiac exam revealed the PMI to be normally situated and sized. The rhythm was regular and no extrasystoles were noted during several minutes of auscultation. The first and second heart sounds were normal and physiologic splitting of the second heart sound was noted. There were no murmurs, rubs, clicks, or gallops. Abdominal exam revealed normal bowel sounds. The abdomen was soft, non-tender, and without masses, organomegaly, or appreciable enlargement of the abdominal aorta. Examination of the extremities revealed easily palpable radial, femoral and pedal pulses. There was no cyanosis, clubbing or edema. Examination of the skin revealed no evidence of significant rashes, suspicious appearing nevi or other concerning lesions. Neurologic the patient is sedated and the patient is calm and comfortable synchronous with the mechanical ventilator. - Labs CBC & Chem 7: 12/02/19 04:01 12/02/19 04:01 Labs: Abnormal Lab Results - Last 24 Hours (Table) 12/01/19 12/01/19 12/01/19 Range/Units 11:36 16:45 17:37 RBC (4.30-5.90) m/uL Hgb (13.0-17.5) gm/dL Hct (39.0-53.0) % ABG pH (7.35-7.45) ABG HCO3 (21-25) mmol/L ABG Total CO2 (19-24) mmol/L ABG O2 Saturation (94-97) % Sodium 147 H (137-145) mmol/L Chloride (98-107) mmol/L BUN (9-20) mg/dL Creatinine (0.66-1.25) mg/dL Glucose (74-99) mg/dL POC Glucose (mg/dL) 123 H 125 H (75-99) mg/dL Calcium (8.4-10.2) mg/dL 12/01/19 12/02/19 12/02/19 Range/Units 23:36 04:01 04:01 RBC 3.25 L (4.30-5.90) m/uL Hgb 10.4 L (13.0-17.5) gm/dL Hct 31.5 L (39.0-53.0) % ABG pH (7.35-7.45) ABG HCO3 (21-25) mmol/L ABG Total CO2 (19-24) mmol/L ABG O2 Saturation (94-97) % Sodium (137-145) mmol/L Chloride 115 H (98-107) mmol/L BUN 47 H (9-20) mg/dL Creatinine 1.46 H (0.66-1.25) mg/dL Glucose 103 H (74-99) mg/dL POC Glucose (mg/dL) 116 H (75-99) mg/dL Calcium 8.3 L (8.4-10.2) mg/dL 12/02/19 12/02/19 Range/Units 04:55 05:41 RBC (4.30-5.90) m/uL Hgb (13.0-17.5) gm/dL Hct (39.0-53.0) % ABG pH 7.47 H (7.35-7.45) ABG HCO3 26 H (21-25) mmol/L ABG Total CO2 28 H (19-24) mmol/L ABG O2 Saturation 97.6 H (94-97) % Sodium (137-145) mmol/L Chloride (98-107) mmol/L BUN (9-20) mg/dL Creatinine (0.66-1.25) mg/dL Glucose (74-99) mg/dL POC Glucose (mg/dL) 117 H (75-99) mg/dL Calcium (8.4-10.2) mg/dL Assessment and Plan Plan: 1 acute kidney injury, likely an ATN secondary to dehydration and excessive utilization of nonsteroidal anti-inflammatory medications and Mason inhibitors. The patient was taking Vicoprofen on outpatient basis addition to Voltaren and the patient has been on Zestril. The renal function is improving and the creatinine is down to 1.46 and the patient is nonoliguric producing adequate amount of urine output. 2 acute hyperkalemia that recovered and the patient has developed hypernatremia, recovered and the patient is currently on KVO IV fluids 3 acute metabolic acidosis secondary to above, improved 4 acute hypoxic respiratory failure. The patient had significant agitation altered mentation secondary to above. I I suspect also opiate withdrawal well. The patient was encephalopathic and the previous and very much agitated. To protect his airways and to maintain safety, and I ended up sedating this patient with propofol and put him on a mechanical ventilator. Chest x-ray still showing some infiltration of the right lung which could be some interstitial edema/aspiration. Still on IV Zosyn. 5 possible opiate abuse 6 chronic back pain 7 acute non-ST segment elevation myocardial infarction and troponin peaked at 4.8, hemodynamically stable with a normal echocardiogram 8 acute bilateral pulmonary infiltration right more than left, consider asp iration pneumonia, improving and the chest x-ray shows clearing of the bilateral pulmonary infiltrates. 9 acute hypoxic respiratory failure, currently intubated on a mechanical ventilator. 10 hypertension 11 hyperlipidemia 12 obesity with a BMI of 33 Plan IV fluids to KVO Continue enteral feeding for nutritional support Continue ventilator support Continue IV Zosyn Give the patient another 24 hours and hopefully by then the encephalopathy recovered and was given a sedation holiday to assess his underlying mentation and readiness to wean within next 24 hours. Continue enteral feeding for nutritional support We'll continue to follow. Condition is critical and this evaluation was done a nd more than 30 minutes.
[2019-12-02 11:44] LABS: Glucose,Whole Blood 108 mg/dL (75-99)
[2019-12-02 11:58] VITALS: BMI 32.1
--- NOTE | 2019-12-02 15:12 | PN ---
PROGRESS NOTE DATE OF SERVICE: 12/02/2019 This 64-year-old gentleman who was admitted with acute renal failure also had some history of heroin abuse. The patient had agitation, acute hypoxic respiratory failure. Patient mechanically intubated. The patient is being closely monitored. Acute renal failure is improving at this time but the patient currently needs max dose Propofol with possibly the patient is undergoing drug withdrawal at this time. Past medical history reviewed. Review of systems could not be taken, the patient is intubated. CURRENT MEDICATIONS: Reviewed and include: DuoNeb q.i.d., p.r.n., Norvasc, Aspirin, Lipitor, Peridex, Celexa, heparin, NovoLog, Ativan, Protonix and Zosyn. PHYSICAL EXAM: Patient is mechanically ventilated and sedated. The pulse is 64. Blood pressure 150/70, respiration 24, temperature 97.4, pulse ox 97% on 40%. Mechanical settings noted. HEENT: Conjunctivae normal. NECK: No JVD. CARDIOVASCULAR: S1, S2 muffled. RESPIRATORY: Breath sounds diminished in the bases. A few scattered rhonchi and crackles. ABDOMEN: Soft. Obese. Nontender. LEGS no edema. NERVOUS SYSTEM: Diffusely weak. LABS: WBC 10, hemoglobin 10.4, sodium 140, potassium 4.2, creatinine is 1.46. ASSESSMENT: 1. Acute renal failure possible acute tubular necrosis with prerenal factors. 2. Acute hypoxic respiratory failure on mechanical ventilation. 3. Change in mental status, acute metabolic encephalopathy secondary to renal failure and possible drug overdose and withdrawal. 4. Hypernatremia. 5. Acute bilateral pneumonia possibly aspiration pneumonia with acute hypoxic respiratory failure on mechanical ventilation. 6. Hypotension possibly secondary to dehydration and cardiogenic shock. 7. Hyperkalemia secondary to renal failure. 8. Severe metabolic acidosis secondary to renal failure. 9. Troponin 4.290 possible acute kyv-[id number]-[id number]-elevation myocardial infarction present on admission. 10.Increased WBC. 11.Anemia macrocytic. 12.History of possible heroin overdose. 13.Hypertension. 14.Hyperlipidemia. 15.History of back pain. 16.History of MRSA. 17.History of cholecystectomy. 18.History of depression. 19.History of nicotine dependence and history of THC. 20.FULL CODE. RECOMMENDATIONS AND DISCUSSION: I recommend to continue current medications, and symptomatic treatment. Continue mechanical ventilation. Continue with broad-spectrum IV antibiotics. I would also recommend add clonidine to the current regimen. Bronchodilators. Otherwise, closely follow with multiple consultants. Weaning per Dr. Keller. Guarded prognosis because of multiple complex medical conditions. Further recommendations to follow. MMODL / IJN: [id number] /
[2019-12-02 16:22] LABS: Basophils # (A) 0.1 k/uL (0-0.2); Basophils % (A) 1 %; Eosinophils # (A) 0.6 k/uL (0-0.7); Eosinophils % (A) 5 %; HCT 34.9 % (39.0-53.0); HGB 10.9 gm/dL (13.0-17.5); Lymphocytes # (A) 1.6 k/uL (1.0-4.8); Lymphocytes % (A) 14 %; MCH 30.3 pg (25.0-35.0); MCHC 31.3 g/dL (31.0-37.0); MCV 96.8 fL (80.0-100.0); Mean Platelet Volume 8.1; Monocytes # (A) 0.6 k/uL (0-1.0); Monocytes % (A) 5 %; Neutrophils # (A) 8.6 k/uL (1.3-7.7); Neutrophils % (A) 73 %; Platelet Count 181 k/uL (150-450); RDW 14.1 % (11.5-15.5); WBC 11.7 k/uL (3.8-10.6)
[2019-12-02 16:43] LABS: Albumin 3.3 g/dL (3.5-5.0); Calcium 8.6 mg/dL (8.4-10.2); Magnesium 1.9 mg/dL (1.6-2.3); Phosphorus 3.7 mg/dL (2.5-4.5); Potassium 4.5 mmol/L (3.5-5.1); Total Bilirubin 0.9 mg/dL (0.2-1.3); Total Protein 6.4 g/dL (6.3-8.2)
[2019-12-02] MEDS ORDERED: AMIODARONE 360 MG in DEXTROSE 5% IN WATER 200 ML IV ONE ×2 (16:45)
[2019-12-02] MEDS ORDERED: DEXTROSE 5% IN WATER 100 ML with AMIODARONE 150 MG IV ONE (16:45)
[2019-12-02] MEDS: cloNIDine HCL 0.1 MG TAB PO SCH ×2 (17:39→22:03)
[2019-12-02 18:00] LABS: Glucose,Whole Blood 107 mg/dL (75-99)
[2019-12-02] MEDS: AMIODARONE 300 MG in DEXTROSE 5% IN WATER 250 ML IV SCH ×2 (22:39)
[2019-12-03] MEDS: INSULIN ASPART (NovoLOG) 100 UNIT/ML VIAL SQ SCH ×4 (00:48→21:54)
[2019-12-03 00:50] LABS: Glucose,Whole Blood 112 mg/dL (75-99)
[2019-12-03] MEDS: PIPERACILLIN-TAZOBACTAM 3.375 GM in SODIUM CHLORIDE 0.9% 100 ML IVPB SCH ×3 (00:50→17:36)
[2019-12-03] MEDS: HEPARIN SODIUM,PORCINE 5,000 UNIT/ML 1 ML VIAL SQ SCH ×3 (00:50→17:36)
[2019-12-03] MEDS: PROPOFOL 1,000 MG in EMPTY BAG 1 BAG IV SCH ×3 (02:23→08:19)
[2019-12-03 05:43] LABS: Glucose,Whole Blood 100 mg/dL (75-99)
[2019-12-03 05:49] LABS: Basophils # (A) 0.1 k/uL (0-0.2); Basophils % (A) 0 %; Eosinophils # (A) 0.6 k/uL (0-0.7); Eosinophils % (A) 5 %; HCT 36.3 % (39.0-53.0); HGB 11.6 gm/dL (13.0-17.5); Lymphocytes # (A) 2.4 k/uL (1.0-4.8); Lymphocytes % (A) 18 %; MCH 30.8 pg (25.0-35.0); MCHC 31.8 g/dL (31.0-37.0); MCV 96.8 fL (80.0-100.0); Monocytes # (A) 0.9 k/uL (0-1.0); Monocytes % (A) 7 %; Neutrophils % (A) 68 %; Platelet Count 102 k/uL (150-450); RBC 3.75 m/uL (4.30-5.90); RDW 14.2 % (11.5-15.5); WBC 13.2 k/uL (3.8-10.6)
[2019-12-03 06:04] LABS: Glucose,Whole Blood 108 mg/dL (75-99)
--- NOTE | 2019-12-03 07:27 | XR ---
EXAMINATION TYPE: XR chest 1V portable DATE OF EXAM: 12/03/2019 Comparison: 12/02/2019 Clinical History: 64-year-old male tube placement Findings: ET tube is satisfactory. NG tube courses below the diaphragm. Left IJ CVC tip at the mid SVC level. H eart remains mildly enlarged. Diffuse interstitial density persists. Mild patchy right basilar opacit ies. No sizable effusion on the frontal view. Reverse left shoulder plasty partially visualized. Impression: 1. Continued findings suggestive of mild CHF with pulmonary vascular congestion. 2. Some patchy right basilar opacity slightly increased and could represent atelectasis or an area of developing, more confluent edema versus infiltrate.
[2019-12-03] MEDS: IPRATROPIUM-ALBUTEROL 3 ML NEB INHALATION SCH ×4 (07:43→20:04)
[2019-12-03] MEDS: AMIODARONE 300 MG in DEXTROSE 5% IN WATER 250 ML IV SCH ×2 (09:00)
[2019-12-03] MEDS: ATORVASTATIN 40 MG TAB PO SCH (09:05)
[2019-12-03] MEDS: TAMSULOSIN 0.4 MG CAP.ER.24H PO SCH ×3 (09:05→21:58)
[2019-12-03] MEDS: CITALOPRAM HYDROBROMIDE 20 MG TAB PO SCH (09:06)
[2019-12-03] MEDS: CHLORHEXIDINE GLUCONATE 15 ML CUP MUCOUS MEM SCH ×2 (09:06→11:56)
[2019-12-03] MEDS: cloNIDine HCL 0.1 MG TAB PO SCH ×3 (09:06→17:31)
[2019-12-03] MEDS: ASPIRIN 81 MG PO SCH (09:06)
[2019-12-03] MEDS: amLODIPine 10 MG TAB PO SCH ×2 (09:06→17:35)
[2019-12-03] MEDS: PANTOPRAZOLE 40 MG/10 ML VIAL IV SCH (09:06)
[2019-12-03] MEDS ORDERED: HALOPERIDOL LACTATE 5 MG/ML 1 ML VIAL IVP PRN ×2 (11:03→16:15)
[2019-12-03] MEDS ORDERED: HALOPERIDOL LACTATE 5 MG/ML 1 ML VIAL IVP ONE (11:07)
--- NOTE | 2019-12-03 12:08 | PN ---
PROGRESS NOTE Agustin is a 64-year-old gentleman who was admitted to hospital with acute renal failure drug overdose and had a myocardial infarction. He had an episode of atrial fibrillation yesterday and was given intravenous amiodarone following which he converted to sinus rhythm. This morning, he is extubated, appears confused and at times agitated. On exam, heart rate is 50 beats per minute. Blood pressure is 140/62, respiratory is 18. Chest exam reveals good air entry bilaterally. Heart exam reveals first and second heart sounds. No gallop. No murmur. Abdomen soft. Exam of extremities did not reveal any edema. Peripheral pulses are felt. Patient is currently on Norvasc 10 daily, Lipitor 40 daily, aspirin, amiodarone, insulin. ASSESSMENT: 1. Paroxysmal atrial fibrillation. 2. Non ST-segment elevation myocardial infarction. 3. Vent requiring respiratory failure. 4. Drug overdose. I will stop the IV amiodarone once the maintenance dose is done. Continue rest of his medications. MMODL / IJN: [id number] /
[2019-12-03 12:10] LABS: Glucose,Whole Blood 106 mg/dL (75-99)
--- NOTE | 2019-12-03 15:05 | PN ---
PROGRESS NOTE Patient is seen for followup for acute kidney injury. The patient was extubated this morning. He is currently comfortable, not in any acute distress. He is currently not on any IV fluids. Patient has had good urine output. His renal function has improved with creatinine down to 1.26. On examination this morning, blood pressure was 165/82, heart rate 66 per minute. He is afebrile. Examination of the heart S1, S2. Examination of the lungs, bilateral breath sounds are heard. Decreased breath sounds at bases. Abdomen is soft, nontender. Examination of lower extremities shows no significant edema. SAWMILL HAND exam shows patient moving all 4 extremities. LABS: Show hemoglobin 11.6, sodium 144, potassium 4.5, from yesterday serum creatinine 1.26. Albumin was 3.3. ASSESSMENT: 1. Acute kidney injury, currently improved. Serum creatinine was 7.8 on initial admission. Etiology is mostly ATN as well as nonsteroidal anti-inflammatory agents. 2. Hyperkalemia associated with acute kidney injury, metabolic acidosis and use of ALBERT inhibitors currently resolved and exacerbated with use of NSAIDs as well. 3. Metabolic acidosis associated with acute kidney injury, status post bicarb drip. 4. Hypernatremia secondary to free water deficit, currently improved. Patient was receiving free water down his feeding tube. He is currently extubated and encouraged to increase his oral intake. PLAN: Monitor electrolytes. Repeat sodium today and then again in a.m. Encourage increased fluid intake. If the serum sodium is further elevated, the patient will be started on D5W. MMODL / IJN: [id number] /
--- NOTE | 2019-12-03 15:10 | P.PN ---
Subjective Progress Note Date: 12/03/19 Principal diagnosis: Acute kidney injury, acute tubular necrosis, dehydration, acute hyperkalemia and acute metabolic acidosis. This is a 64-year-old male patient who came into the emergency department for the second day and all because of altered mentation. During the first emergency room visit the patient was given Narcan and he was released on suspecting an opiate overdose. No blood work was done. During the second emergency room visit, the patient was found to be in acute kidney injury with elevated creatinine of 7.8 and a potassium of 7.0 and the patient was quite acidotic with a serum bicarb of 11. The patient was confused. The patient was given a dose of Narcan which woke him up and he became more agitated. Following that he was given Ativan. As far as his hyperkalemia, the patient was started on IV fluids and the patient was given 2 A of sodium bicarb in the emergency room he was given Kayexalate and the D50 insulin combination and he was also given calcium gluconate. The patient was given a total of 2 L of IV fluids and another liter was given to him in the ICU. Currently is on a bicarb infusion running at 120 fasting an hour. Note that he was treated again with bicarbonate and D50 insulin in the intensive care unit as the potassium level Fluctuating. Most Recent Potassium Level Is down to 4.7 and the patient's serum bicarbs up to 18. Sodium level is at 140. Creatinine is down to expose 4. Note that the patient had been taking excessive number of his pain medication which included a combination of hydrocodone and ibuprofen. Hydrocodone was at 7.5 mg and ibuprofen was at 200 mg. He also takes Voltaren 25 mg by mouth twice a day and he takes also an ALBERT inhibitor at a dose of 10 mg of Zestril on a daily basis. Noted the patient also had an elevated troponin of 4.8 max and cream beater on the case and no intervention was recommended as the patient's EKG showed no acute ischemic changes. Echocardiogram was done today was within normal limits. No previous history of coronary artery disease. He is producing urine output. He is still lethargic and snoring get he is arousable. He is unable to still hold a conversation this morning. Ultrasound the kidneys was done and there is no evidence of any hydronephrosis. The patient has chronic back pain along with hypertension and hyperlipidemia. CAT scan of the brain that was done no acute abnormalities. There is chronic atrophy and chronic basilar sinus disease. The ultrasound the kidneys showed no evidence of an hydronephrosis. The patient had an echocardiogram that showed an ejection fraction of 50-55%. No other valvular abnormalities. On 12/02/2019 the patient remains intubated. I will keep him intubated and sedated from the 24 hours. I will ultimately give him a sedation holiday tomorrow to evaluate his underlying mentation and assess his readiness for further weaning. At this point in time, she is propofol running at 50 mg per KG per minute. She remains on a mechanical ventilator at a volume of 500 and FiO2 of 40% with a PEEP of 5. He is receiving enteral feeding with vital high protein currently running at 15 mL an hour. The blood gases from today showed a pH of 7.47 with a pCO2 of 36 and pO2 of 104. This was on FiO2 of 50%. Chest x- ray showed no interval change and the patient remains on empiric antibiotic coverage with IV Zosyn. On his blood work, the patient's sodium level is improving. He was taken off the D5 water. He is having further improvement in renal function and the creatinine is down to 1.4 and his BUN is at 145. Potassium level is normal at 4.4. No other significant events overnight. No significant orotracheal secretions. No fever. He remains on IV Zosyn. Patient was reevaluated today on 12/03/19, remains in the ICU intubated and mechanically ventilated. Patient is on the following ventilator settings assist control rate of 24 tidal volume is 500 FiO2 40% and PEEP of 5 ABG showed a pO2 of 104 pCO2 of 36 pH of 7.47. Chest x-ray is showing mild CHF changes, and patchy right basilar opacity could be atelectasis or could be developing infiltrate. At any rate the patient is on amiodarone, IV fluid at KVO, is also on propofol at 25 mcg/kg/m. I did hold his propofol, awake and the patient, seems to be a bit appropriate, following instructions, hence while I'm at bedside I switch the patient to a pressure support of 8 and CPAP. He was moving good tidal volume of 550, his rate was 23, hence after monitoring the patient while I'm in the ICU, I went ahead and recommended extubating the patient. Patient was extubated, uneventfully, seems to be tolerated so far. His renal functioning seems to be improving. His WBC count is 13.2. Electrodes are normal, his BUN is down to 38 and his creatinine is down to 1.26, both were 94 and 5.37 respectively on admission. Objective - Vital Signs Vital signs: Vital Signs Temp 98.2 F 12/03/19 12:00 Pulse 84 12/03/19 14:00 Resp 19 12/03/19 14:00 BP 183/86 12/03/19 14:00 Pulse Ox 94 L 12/03/19 14:00 Intake & Output 12/02/19 12/03/19 12/03/19 18:59 06:59 18:59 Intake Total 490.699 8485 571.693 Output Total 950 945 745 Balance -555.284 595 -173.307 Weight 104.3 kg 104.8 kg Intake: IV 120 120 70 0.9NS 120 120 70 Intake, IV Titration 145.716 400 361.693 Amount Amiodarone 300 mg In 250 Dextrose 5% in Water 250 ml @ 0.5 MG/MIN 25 mls/hr IV .Q10H [facility] Rx#: [id number] Piperacillin-Tazobactam 3 100 .375 gm In Sodium Chloride 0.9% 100 ml @ 25 mls/hr IVPB Q8HR [facility] Rx# :[id number] Propofol 1,000 mg In 145.716 300 111.693 Empty Bag 1 bag @ Titrate IV .Q0M [facility] Rx#: [id number] Tube Feeding 129 420 140 Other 600 Output: Urine 950 945 745 Other: Voiding Method Indwelling Catheter Indwelling Catheter Indwelling Catheter - Exam Physical Exam: Revealed a 64-year-old white male, intubated, and mechanically ventilated. Head: Atraumatic, normocephalic. HEENT:[Neck is supple.] [No neck masses.] [No thyromegaly.] [No JVD.] Endotracheal tube and orogastric tube are intact. Chest: [Symmetrical chest expansion, minimal crackles at the bases. Cardiac Exam: [Normal S1 and S2, no S3 gallop, no murmur.] Abdomen: [Soft, nontender, no megaly, no rebound, no guarding, normal bowel sounds.] Extremities: [No clubbing, no edema, no cyanosis.] Neurological Exam: Arousable, off propofol, seems to be appropriate, follows simple instructions. Psychiatric: Could not be assessed. Skin: No rashes. - Labs CBC & Chem 7: 12/03/19 04:50 12/02/19 16:06 Labs: Abnormal Lab Results - Last 24 Hours (Table) 12/02/19 12/02/19 12/02/19 Range/Units 16:06 16:06 17:58 WBC 11.7 H (3.8-10.6) k/uL RBC 3.60 L (4.30-5.90) m/uL Hgb 10.9 L (13.0-17.5) gm/dL Hct 34.9 L (39.0-53.0) % Plt Count (150-450) k/uL Neutrophils # 8.6 H (1.3-7.7) k/uL Chloride 112 H (98-107) mmol/L BUN 38 H (9-20) mg/dL Creatinine 1.26 H (0.66-1.25) mg/dL Glucose 108 H (74-99) mg/dL POC Glucose (mg/dL) 107 H (75-99) mg/dL Albumin 3.3 L (3.5-5.0) g/dL 12/03/19 12/03/19 12/03/19 Range/Units 00:48 04:50 05:42 WBC 13.2 H (3.8-10.6) k/uL RBC 3.75 L (4.30-5.90) m/uL Hgb 11.6 L (13.0-17.5) gm/dL Hct 36.3 L (39.0-53.0) % Plt Count 102 L (150-450) k/uL Neutrophils # 9.0 H (1.3-7.7) k/uL Chloride (98-107) mmol/L BUN (9-20) mg/dL Creatinine (0.66-1.25) mg/dL Glucose (74-99) mg/dL POC Glucose (mg/dL) 112 H 100 H (75-99) mg/dL Albumin (3.5-5.0) g/dL 12/03/19 12/03/19 Range/Units 06:02 12:08 WBC (3.8-10.6) k/uL RBC (4.30-5.90) m/uL Hgb (13.0-17.5) gm/dL Hct (39.0-53.0) % Plt Count (150-450) k/uL Neutrophils # (1.3-7.7) k/uL Chloride (98-107) mmol/L BUN (9-20) mg/dL Creatinine (0.66-1.25) mg/dL Glucose (74-99) mg/dL POC Glucose (mg/dL) 108 H 106 H (75-99) mg/dL Albumin (3.5-5.0) g/dL Microbiology - Last 24 Hours (Table) 12/02/19 20:06 Gram Stain - Preliminary Sputum Sputum Culture - Preliminary Assessment and Plan Assessment: Impression: Acute kidney injury likely secondary to acute tubular necrosis with dehydration and non-steroidal anti-inflammatory medications. As well as ALBERT inhibitor's usage. Acute metabolic encephalopathy is suspected. Acute hyperkalemia secondary to acute kidney injury. And acute tubular necrosis. Acute hypoxic respiratory failure secondary to significant agitation, requiring intubation and mechanical ventilation Bibasilar atelectasis, possible aspiration pneumonia, patient remains on Zosyn. Acute non-ST elevation myocardial infarction Benign essential hypertension Possible opiate abuse , possible opiate withdrawal. recommendation: patient was awakened, sedation was placed on hold. His bedside weaning was assessed, and patient was placed on a short pressure support of 8 and CPAP trial. Patient was extubated uneventfully. In the meantime we'll continue Zosyn. Continue to monitor closely in the ICU. Continue to monitor electrolytes. Hold enteral feeding for now. Prognosis remains guarded. Critical care time is 34 minutes Time with Patient: Greater than 30
[2019-12-03 16:21] LABS: Potassium 4.2 mmol/L (3.5-5.1)
[2019-12-03] MEDS ORDERED: CARVEDILOL 6.25 MG TAB PO STA (18:57)
--- NOTE | 2019-12-03 21:24 | P.PN ---
Subjective Progress Note Date: 12/03/19 Principal diagnosis: This is a 64-year-old male who was recently admitted with acute renal failure also had history of heroid abuse and was on mechanical ventilation and being closely monitored. Patient currently remains in the ICU and is being closely monitored. Patient was recently extubated this morning and continues to be slightly confused and agitated at times. Haldol was given. Multiple medical consultations following. Review of systems: Constitutional: No reports of fevers or chills Cardiovascular: No reports of chest pain or palpitations Respiratory: No reports of shortness of breath, reports some throat discomfort GI: No reports of nausea, vomiting, or diarrhea : No reports of dysuria or retention, current indwelling catheter Neurovascular: No reports of weakness or numbness Active Medications Albuterol/Ipratropium (Duoneb 0.5 Mg-3 Mg/3 Ml Soln) 3 ml INHALATION RT-QID [facility] Last Admin: 12/03/19 11:31 Dose: Not Given Documented by: Amlodipine Besylate (Norvasc) 10 mg PO DAILY [facility] Last Admin: 12/03/19 09:06 Dose: 10 mg Documented by: Aspirin (Aspirin) 81 mg PO DAILY [facility] Last Admin: 12/03/19 09:06 Dose: 81 mg Documented by: Atorvastatin Calcium (Lipitor) 40 mg PO DAILY [facility] Last Admin: 12/03/19 09:05 Dose: 40 mg Documented by: Chlorhexidine Gluconate (Peridex) 15 ml MUCOUS MEM BID [facility] Last Admin: 12/03/19 11:56 Dose: Not Given Documented by: Citalopram Hydrobromide (Celexa) 20 mg PO DAILY [facility] Last Admin: 12/03/19 09:06 Dose: 20 mg Documented by: Clonidine (Catapres) 0.1 mg PO TID [facility] Last Admin: 12/03/19 14:12 Dose: 0.1 mg Documented by: Heparin Sodium (Porcine) (Heparin) 5,000 unit SQ Q8HR [facility] Last Admin: 12/03/19 09:05 Dose: 5,000 unit Documented by: Propofol 1,000 mg/ IV Solution 100 mls @ 0 mls/hr IV .Q0M [facility]; Protocol Last Admin: 12/03/19 08:19 Dose: 50 mcg/kg/min, 31.17 mls/hr Documented by: Piperacillin Sod/Tazobactam (Sod 3.375 gm/ Sodium Chloride) 100 mls @ 25 mls/hr IVPB Q8HR [facility] Last Admin: 12/03/19 09:05 Dose: 25 mls/hr Documented by: Amiodarone HCl 300 mg/ (Dextrose/Water) 250 mls @ 25 mls/hr IV .Q10H [facility]; Protocol Stop: 12/03/19 16:44 Last Admin: 12/03/19 09:00 Dose: 0.5 mg/min, 25 mls/hr Documented by: Insulin Aspart (Novolog) 0 unit SQ Q6H [facility]; Protocol Last Admin: 12/03/19 13:08 Dose: Not Given Documented by: Morphine Sulfate (Morphine Sulfate (Inj)) 2 mg IVP Q2H PRN PRN Reason: Pain/Discomfort Last Admin: 12/02/19 19:54 Dose: 2 mg Documented by: Naloxone HCl (Narcan) 0.2 mg IV Q2M PRN PRN Reason: Opioid Reversal Pantoprazole Sodium (Protonix) 40 mg IV DAILY [facility] Last Admin: 12/03/19 09:06 Dose: 40 mg Documented by: Tamsulosin HCl (Flomax) 0.4 mg PO BID [facility] Last Admin: 12/03/19 14:18 Dose: Not Given Documented by: Objective - Vital Signs Vital signs: Vital Signs Temp 98.2 F 12/03/19 12:00 Pulse 69 12/03/19 13:00 Resp 22 12/03/19 13:00 BP 174/109 12/03/19 13:00 Pulse Ox 94 L 12/03/19 13:00 Intake & Output 12/02/19 12/03/19 12/03/19 18:59 06:59 18:59 Intake Total 188.067 0179 542.601 Output Total 950 945 745 Balance -555.284 595 -202.399 Weight 104.3 kg 104.8 kg Intake: IV 120 120 70 0.9NS 120 120 70 Intake, IV Titration 145.716 400 332.601 Amount Amiodarone 300 mg In 250 Dextrose 5% in Water 250 ml @ 0.5 MG/MIN 25 mls/hr IV .Q10H [facility] Rx#: [id number] Piperacillin-Tazobactam 3 100 .375 gm In Sodium Chloride 0.9% 100 ml @ 25 mls/hr IVPB Q8HR [facility] Rx# :[id number] Propofol 1,000 mg In 145.716 300 82.601 Empty Bag 1 bag @ Titrate IV .Q0M [facility] Rx#: [id number] Tube Feeding 129 420 140 Other 600 Output: Urine 950 945 745 Other: Voiding Method Indwelling Catheter Indwelling Catheter Indwelling Catheter - Exam Gen: This is a 64-year-old male sitting up in bed, awake, alert and oriented 2. Developed, well-nourished. Temp is 98.2F, pulse is 69, respirations are 18, blood pressure is 174/84, oxygen saturation is 94% on room air. HEENT: Head is atraumatic, normocephalic. Pupils equal, round. Sclerae is anicteric. NECK: Supple. No JVD. No lymphadenopathy. No thyromegaly. LUNGS: Breath sounds diminished at the bases with a few scattered rhonchi noted. No intercostal retractions. HEART: S1, S2 are muffled ABDOMEN: Soft. Bowel sounds are present. No masses. No tenderness. EXTREMITIES: No pedal edema. No calf tenderness. Bilateral SCDs noted NEUROLOGICAL: Patient is awake, alert and oriented x2. Recently extubated. - Labs CBC & Chem 7: 12/03/19 04:50 12/03/19 15:38 Labs: Abnormal Lab Results - Last 24 Hours (Table) 12/02/19 12/02/19 12/02/19 Range/Units 16:06 16:06 17:58 WBC 11.7 H (3.8-10.6) k/uL RBC 3.60 L (4.30-5.90) m/uL Hgb 10.9 L (13.0-17.5) gm/dL Hct 34.9 L (39.0-53.0) % Plt Count (150-450) k/uL Neutrophils # 8.6 H (1.3-7.7) k/uL Chloride 112 H (98-107) mmol/L BUN 38 H (9-20) mg/dL Creatinine 1.26 H (0.66-1.25) mg/dL Glucose 108 H (74-99) mg/dL POC Glucose (mg/dL) 107 H (75-99) mg/dL Albumin 3.3 L (3.5-5.0) g/dL 12/03/19 12/03/19 12/03/19 Range/Units 00:48 04:50 05:42 WBC 13.2 H (3.8-10.6) k/uL RBC 3.75 L (4.30-5.90) m/uL Hgb 11.6 L (13.0-17.5) gm/dL Hct 36.3 L (39.0-53.0) % Plt Count 102 L (150-450) k/uL Neutrophils # 9.0 H (1.3-7.7) k/uL Chloride (98-107) mmol/L BUN (9-20) mg/dL Creatinine (0.66-1.25) mg/dL Glucose (74-99) mg/dL POC Glucose (mg/dL) 112 H 100 H (75-99) mg/dL Albumin (3.5-5.0) g/dL 12/03/19 12/03/19 Range/Units 06:02 12:08 WBC (3.8-10.6) k/uL RBC (4.30-5.90) m/uL Hgb (13.0-17.5) gm/dL Hct (39.0-53.0) % Plt Count (150-450) k/uL Neutrophils # (1.3-7.7) k/uL Chloride (98-107) mmol/L BUN (9-20) mg/dL Creatinine (0.66-1.25) mg/dL Glucose (74-99) mg/dL POC Glucose (mg/dL) 108 H 106 H (75-99) mg/dL Albumin (3.5-5.0) g/dL Microbiology - Last 24 Hours (Table) 12/02/19 20:06 Gram Stain - Preliminary Sputum Sputum Culture - Preliminary Assessment and Plan Assessment: Acute renal failure possible acute tubular necrosis with prerenal factors Acute hypoxic respiratory failure, requiring mechanical ventilation, recent extubation Change in mental status, acute metabolic encephalopathy secondary to renal failure and possible drug overdose and withdrawal Hypernatremia Acute bilateral pneumonia possibly aspiration pneumonia with acute hypoxic respiratory failure requiring mechanical ventilation, recent extubation Hypotension possibly secondary to dehydration and cardiogenic shock Hyperkalemia secondary to renal failure severe metabolic acidosis secondary to renal failure Troponin 4.290 possible acute non-ST segment elevation myocardial infarction, present on admission Increased WBC Anemia, macrocytic History possible heroin overdose Hypertension Hyperlipidemia History back pain History of MRSA History of cholecystectomy History of depression History of nicotine dependence and history of THC use Full code Recommendations and discussion: Recommend to continue current medications, management, and symptomatic treatment. Patient remains in the ICU and is being currently closely monitored. Multiple medical consultations following. Recently extubated this morning and continues to be slightly agitated and was given Haldol. Repeat BMP ordered and is currently pending at this time. Most recent creatinine yesterday was 1.26. Nephrology following. Due to multiple complex medical issues, prognosis is gu arded. Further recommendations to follow.
[2019-12-03] MEDS: cloNIDine HCL 0.2 MG TAB PO SCH ×2 (21:58→21:59)
[2019-12-04 01:01] LABS: Glucose,Whole Blood 114 mg/dL (75-99)
[2019-12-04] MEDS: INSULIN ASPART (NovoLOG) 100 UNIT/ML VIAL SQ SCH ×3 (01:02→12:18)
[2019-12-04] MEDS: HEPARIN SODIUM,PORCINE 5,000 UNIT/ML 1 ML VIAL SQ SCH ×3 (01:14→15:23)
[2019-12-04] MEDS: PIPERACILLIN-TAZOBACTAM 3.375 GM in SODIUM CHLORIDE 0.9% 100 ML IVPB SCH ×2 (01:14→10:26)
[2019-12-04] MEDS ORDERED: DILTIAZEM 125 MG in SODIUM CHLORIDE 0.9% 100 ML IV SCH (05:15)
[2019-12-04 06:01] LABS: Calcium 9.2 mg/dL (8.4-10.2); Magnesium 1.5 mg/dL (1.6-2.3)
[2019-12-04] MEDS ORDERED: Magnesium Replacement Protocol 1 EACH MISC MISCELLANE PRN (06:21)
[2019-12-04] MEDS: MAGNESIUM SULFATE-D5W PMX 1 GM in DEXTROSE/WATER 1 100ML.BAG IVPB SCH ×2 (07:11→09:09)
[2019-12-04 07:12] LABS: HCT 37.1 % (39.0-53.0); MCH 31.2 pg (25.0-35.0); MCHC 32.3 g/dL (31.0-37.0); MCV 96.8 fL (80.0-100.0); Mean Platelet Volume 9.8; Platelet Count 129 k/uL (150-450); RBC 3.83 m/uL (4.30-5.90); RDW 14.1 % (11.5-15.5); WBC 17.1 k/uL (3.8-10.6)
--- NOTE | 2019-12-04 07:15 | XR ---
EXAMINATION TYPE: XR chest 1V portable DATE OF EXAM: 12/04/2019 HISTORY: Shortness of breath. COMPARISON: 12/03/2019 TECHNIQUE: Single view of the chest is submitted. FINDINGS: Demonstrated are scattered senescent parenchymal change. Endotracheal tube, NG tube and central venous line have been removed. The heart is stable. Persistent pulmonary venous congestion with patchy basilar infiltrates. Hilar and mediastinal structures are within normal limits. Degenerative changes are seen of the dorsal spine. IMPRESSION: 1. Persistent features of mild congestive failure. Right basilar infiltrate.
[2019-12-04] MEDS: IPRATROPIUM-ALBUTEROL 3 ML NEB INHALATION SCH ×3 (07:26→16:01)
[2019-12-04] MEDS: ASPIRIN 81 MG PO SCH (09:09)
[2019-12-04] MEDS: PANTOPRAZOLE 40 MG/10 ML VIAL IV SCH (09:09)
[2019-12-04] MEDS: ATORVASTATIN 40 MG TAB PO SCH (09:09)
[2019-12-04] MEDS: TAMSULOSIN 0.4 MG CAP.ER.24H PO SCH (09:09)
[2019-12-04] MEDS: CITALOPRAM HYDROBROMIDE 20 MG TAB PO SCH (09:09)
[2019-12-04] MEDS ORDERED: AMOXIC-POT CLAV 875-125MG 1 EACH TAB PO SCH (10:15)
[2019-12-04] MEDS ORDERED: ACETAMINOPHEN TAB 325 MG TAB PO PRN (10:17)
[2019-12-04] MEDS: cloNIDine HCL 0.2 MG TAB PO SCH (10:26)
[2019-12-04] MEDS: DILTIAZEM ORAL 60 MG TAB PO SCH ×2 (11:09→15:23)
--- NOTE | 2019-12-04 13:07 | PN ---
PROGRESS NOTE The patient is seen for followup for acute kidney injury. He is currently sitting up in a bedside chair. Patient has been confused. He had been pulling at his IVs. He is awake. He is not in any acute distress. This morning blood pressure was 150/78, heart rate 74 per minute. He is afebrile. Examination of the heart S1, S2. Examination of the lungs, bilateral breath sounds are heard. Abdomen is soft, nontender. Examination of lower extremities shows trace edema bilaterally. PASSENGER AGENT exam shows patient is confused. He is moving all 4 extremities. Labs show sodium 138, potassium 4.0, chloride 109, CO2 is 15, BUN 21, creatinine 1.24, hemoglobin 12.0 g/dL. ASSESSMENT: 1. Acute kidney injury, acute tubular necrosis currently improved. Renal function has improved further with creatinine down to 1.2 from peak of 7.8 on initial admission. 2. Hyperkalemia associated acute kidney injury, metabolic acidosis, use of NSAIDs and ALBERT inhibitors, currently resolved. 3. Hypernatremia associated with free water deficit status post free water down the feeding tube. The patient has been extubated and he is maintaining oral intake. Sodium is 138 today. 4. Metabolic acidosis with mildly elevated anion gap in the setting of acute kidney injury, currently with no diarrhea. I will add oral sodium bicarb. 5. Metabolic acidosis on initial admission, status post IV bicarb. 6. Metabolic encephalopathy. 7. Acute non ST elevation myocardial infarction with preserved ejection fraction at 50 to 55% on echocardiogram this admission. PLAN: Add oral sodium bicarb. Hopefully, patient will be able to take his medications. Continue to encourage increased oral intake. MMODL / IJN: [id number] /
[2019-12-04 14:19] VITALS: BP 126/93; PULSE 75; RESP 26; TEMP 97.5
--- NOTE | 2019-12-04 14:32 | P.PN ---
Subjective Progress Note Date: 12/04/19 Principal diagnosis: Acute kidney injury, acute tubular necrosis, dehydration, acute hyperkalemia and acute metabolic acidosis. This is a 64-year-old male patient who came into the emergency department for the second day and all because of altered mentation. During the first emergency room visit the patient was given Narcan and he was released on suspecting an opiate overdose. No blood work was done. During the second emergency room visit, the patient was found to be in acute kidney injury with elevated creatinine of 7.8 and a potassium of 7.0 and the patient was quite acidotic with a serum bicarb of 11. The patient was confused. The patient was given a dose of Narcan which woke him up and he became more agitated. Following that he was given Ativan. As far as his hyperkalemia, the patient was started on IV fluids and the patient was given 2 A of sodium bicarb in the emergency room he was given Kayexalate and the D50 insulin combination and he was also given calcium gluconate. The patient was given a total of 2 L of IV fluids and another liter was given to him in the ICU. Currently is on a bicarb infusion running at 120 fasting an hour. Note that he was treated again with bicarbonate and D50 insulin in the intensive care unit as the potassium level Fluctuating. Most Recent Potassium Level Is down to 4.7 and the patient's serum bicarbs up to 18. Sodium level is at 140. Creatinine is down to expose 4. Note that the patient had been taking excessive number of his pain medication which included a combination of hydrocodone and ibuprofen. Hydrocodone was at 7.5 mg and ibuprofen was at 200 mg. He also takes Voltaren 25 mg by mouth twice a day and he takes also an ALBERT inhibitor at a dose of 10 mg of Zestril on a daily basis. Noted the patient also had an elevated troponin of 4.8 max and loan manager on the case and no intervention was recommended as the patient's EKG showed no acute ischemic changes. Echocardiogram was done today was within normal limits. No previous history of coronary artery disease. He is producing urine output. He is still lethargic and snoring get he is arousable. He is unable to still hold a conversation this morning. Ultrasound the kidneys was done and there is no evidence of any hydronephrosis. The patient has chronic back pain along with hypertension and hyperlipidemia. CAT scan of the brain that was done no acute abnormalities. There is chronic atrophy and chronic basilar sinus disease. The ultrasound the kidneys showed no evidence of an hydronephrosis. The patient had an echocardiogram that showed an ejection fraction of 50-55%. No other valvular abnormalities. On 12/02/2019 the patient remains intubated. I will keep him intubated and sedated from the 24 hours. I will ultimately give him a sedation holiday tomorrow to evaluate his underlying mentation and assess his readiness for further weaning. At this point in time, she is propofol running at 50 mg per KG per minute. She remains on a mechanical ventilator at a volume of 500 and FiO2 of 40% with a PEEP of 5. He is receiving enteral feeding with vital high protein currently running at 15 mL an hour. The blood gases from today showed a pH of 7.47 with a pCO2 of 36 and pO2 of 104. This was on FiO2 of 50%. Chest x- ray showed no interval change and the patient remains on empiric antibiotic coverage with IV Zosyn. On his blood work, the patient's sodium level is improving. He was taken off the D5 water. He is having further improvement in renal function and the creatinine is down to 1.4 and his BUN is at 145. Potassium level is normal at 4.4. No other significant events overnight. No significant orotracheal secretions. No fever. He remains on IV Zosyn. Patient was reevaluated today on 12/03/19, remains in the ICU intubated and mechanically ventilated. Patient is on the following ventilator settings assist control rate of 24 tidal volume is 500 FiO2 40% and PEEP of 5 ABG showed a pO2 of 104 pCO2 of 36 pH of 7.47. Chest x-ray is showing mild CHF changes, and patchy right basilar opacity could be atelectasis or could be developing infiltrate. At any rate the patient is on amiodarone, IV fluid at KVO, is also on propofol at 25 mcg/kg/m. I did hold his propofol, awake and the patient, seems to be a bit appropriate, following instructions, hence while I'm at bedside I switch the patient to a pressure support of 8 and CPAP. He was moving good tidal volume of 550, his rate was 23, hence after monitoring the patient while I'm in the ICU, I went ahead and recommended extubating the patient. Patient was extubated, uneventfully, seems to be tolerated so far. His renal functioning seems to be improving. His WBC count is 13.2. Electrodes are normal, his BUN is down to 38 and his creatinine is down to 1.26, both were 94 and 5.37 respectively on admission. Patient was evaluated today on 12/04/19, he was extubated yesterday, he tolerated the extubation quite well, had few episodes of agitation yesterday, and he responded well to Haldol. Today the patient seems to be calm, in no distress. Sitting at a bedside chair. However he developed atrial fibrillation with RVR yesterday, and he was placed on Cardizem at 10 mg per hour. Plan to switch him to oral Cardizem today, and adjust his blood pressure medications to keep it under control. Patient is asking to be discharged home, however he is not quite ready for discharge at this point. His mental status seems to be more ap propriate. But not back to baseline. Chest x-ray continues to show somedisease in the right lower lobe and minimal atelectasis in the left lower lobe. Patient is on Zosyn, and I will switch him to oral Augmentin. I also switched the patient to oral Cardizem. And we'll recommend resting the patient out of the ICU to a monitor bed on selective and to have a sitter at bedside. WBC count is 17.1 hemoglobin is 12 electrolytes are normal renal profile is improving creatinine is down to 1.24 today. Objective - Vital Signs Vital signs: Vital Signs Temp 97.5 F L 12/04/19 12:00 Pulse 75 12/04/19 14:00 Resp 26 H 12/04/19 14:00 BP 126/93 12/04/19 12:00 Pulse Ox 95 12/04/19 12:00 Intake & Output 12/03/19 12/04/19 12/04/19 18:59 06:59 18:59 Intake Total 484.709 0039 640 Output Total 1205 1325 335 Balance -393.307 840 305 Intake: IV 135 165 40 0.9NS 110 90 40 Piperacillin-Tazobactam 3 25 75 .375 gm In Sodium Chloride 0.9% 100 ml @ 25 mls/hr IVPB Q8HR [facility] Rx# :[id number] Intake, IV Titration 361.693 100 Amount Amiodarone 300 mg In 250 Dextrose 5% in Water 250 ml @ 0.5 MG/MIN 25 mls/hr IV .Q10H [facility] Rx#: [id number] Magnesium Sulfate-D5w Pmx 100 1 gm In Dextrose/Water 1 100ml.bag @ 100 mls/hr IVPB Q1H [facility] Rx#: [id number] Propofol 1,000 mg In 111.693 Empty Bag 1 bag @ Titrate IV .Q0M [facility] Rx#: [id number] Oral 175 2000 500 Tube Feeding 140 Output: Urine 1205 1325 335 Other: Voiding Method Indwelling Catheter Indwelling Catheter Indwelling Catheter # Voids 1 # Bowel Movements 1 1 - Exam Physical Exam: Revealed a 64-year-old white male, in no distress, sitting at a bedside chair, on room air. Head: Atraumatic, normocephalic. HEENT:[Neck is supple.] [No neck masses.] [No thyromegaly.] [No JVD.] Chest: [Symmetrical chest expansion, minimal crackles at the bases. Cardiac Exam: [Normal S1 and S2, no S3 gallop, no murmur.] Abdomen: [Soft, nontender, no megaly, no rebound, no guarding, normal bowel sounds.] Extremities: [No clubbing, no edema, no cyanosis.] Neurological Exam: Alert and oriented 3, no gross focal deficits. Psychiatric: Blunt mood and affect, slow mental status but relatively intact, Knew the name of the president, Knew it is 2019., and the month. And he knew the place where he is Skin: No rashes. - Labs CBC & Chem 7: 12/04/19 05:13 12/04/19 05:13 Labs: Abnormal Lab Results - Last 24 Hours (Table) 12/03/19 12/04/19 12/04/19 Range/Units 15:38 01:00 05:13 WBC 17.1 H (3.8-10.6) k/uL RBC 3.83 L (4.30-5.90) m/uL Hgb 12.0 L (13.0-17.5) gm/dL Hct 37.1 L (39.0-53.0) % Plt Count 129 L (150-450) k/uL Chloride 112 H (98-107) mmol/L Carbon Dioxide 20 L (22-30) mmol/L BUN 29 H (9-20) mg/dL Creatinine 1.30 H (0.66-1.25) mg/dL Glucose 110 H (74-99) mg/dL POC Glucose (mg/dL) 114 H (75-99) mg/dL Magnesium (1.6-2.3) mg/dL 12/04/19 Range/Units 05:13 WBC (3.8-10.6) k/uL RBC (4.30-5.90) m/uL Hgb (13.0-17.5) gm/dL Hct (39.0-53.0) % Plt Count (150-450) k/uL Chloride 109 H (98-107) mmol/L Carbon Dioxide 15 L (22-30) mmol/L BUN 21 H (9-20) mg/dL Creatinine (0.66-1.25) mg/dL Glucose 105 H (74-99) mg/dL POC Glucose (mg/dL) (75-99) mg/dL Magnesium 1.5 L (1.6-2.3) mg/dL Microbiology - Last 24 Hours (Table) 12/02/19 20:06 Gram Stain - Final Sputum Sputum Culture - Final Assessment and Plan Assessment: Impression: Acute kidney injury likely secondary to acute tubular necrosis with dehydration and non-steroidal anti-inflammatory medications. As well as ALBERT inhibitor's usage. Acute metabolic encephalopathy is suspected. Improving significantly today. Acute hyperkalemia secondary to acute kidney injury. And acute tubular necrosis. Resolving steadily over the last few days. Acute hypoxic respiratory failure secondary to significant agitation, requiring intubation and mechanical ventilation, patient was extubated on 12/02. Bibasilar atelectasis, possible aspiration pneumonia, patient remains on Zosyn. Acute non-ST elevation myocardial infarction Benign essential hypertension Possible opiate abuse , possible opiate withdrawal. recommendation: Continue present supportive care measures including cardiac meds for his cardiac arrhythmia and for his hypertension, patient was switched to oral medications. Continue antibiotics, patient was switched to Augmentin. Continue incentive spirometry. Possibly transferred to a monitor bed on selective today. Consider discharge planning in the next 24 hours. We'll continue to follow. Time with Patient: Less than 30
[2019-12-04] MEDS ORDERED: CARVEDILOL 6.25 MG TAB PO SCH (18:40)
--- NOTE | 2019-12-04 18:42 | PN ---
PROGRESS NOTE FOLLOW-UP NOTE: Ekagn-exe-swoj-old gentleman who is admitted to hospital with a drug overdose and had knz-VW-xzeynpx-elevation MN and renal failure. He is looking much better. Alert, awake. Renal failure has resolved and he wants to go home and does not wish to have any cardiac procedures. On exam today, he is comfortable at rest. Vital signs are stable. There is no jugular venous distention. Chest is clear Heart exam reveals first and second heart sounds. No gallop. No murmur. Abdomen is soft. Examination of extremities did not reveal any edema. Peripheral pulses are felt. I reviewed his medications. ASSESSMENT: 1. Hypertension. 2. Acute drug overdose. 3. Tub-SZ-vnlpgwj elevation myocardial infarction, probably related to the drug overdose. PLAN: Patient is well clinically. We will continue his current medications. From cardiac standpoint, patient is stable to be discharged. GLENNL / NOAHN: [id number] /
[2019-12-04] MEDS ORDERED: SODIUM BICARBONATE TAB 650 MG TAB PO SCH (21:00)
[2019-12-05] MEDS ORDERED: CARVEDILOL 6.25 MG TAB PO SCH (07:30)
[2019-12-05] MEDS ORDERED: PANTOPRAZOLE 40 MG TABLET PO SCH (09:00)
--- NOTE | 2019-12-05 15:45 | P.DS ---
Providers Date of admission: 11/28/19 16:40 Expected date of discharge: 12/04/19 Attending physician: Artem Javier Consults: 11/28/19 16:41 Consult Physician Routine Consulting Provider: Al Keller Consult Reason/Comments: ICU management Do you want consulting provider notified?: Already Contacted Consult Physician Urgent Consulting Provider: Nghia Alvarez Consult Reason/Comments: Acute renal failure Do you want consulting provider notified?: Already Contacted Consult Physician Urgent Consulting Provider: Sravan Newton Consult Reason/Comments: Elevated troponin Do you want consulting provider notified?: Already Contacted Primary care physician: Marina Marques [facility] Hospital Course: Final diagnosis Acute renal failure possible acute tubular necrosis with prerenal factors Acute hypoxic respiratory failure, requiring mechanical ventilation, recent extubation Change in mental status, acute metabolic encephalopathy secondary to renal failure and possible drug overdose and withdrawal Hypernatremia Acute bilateral pneumonia possibly aspiration pneumonia with acute hypoxic respiratory failure requiring mechanical ventilation, recent extubation Hypotension possibly secondary to dehydration and cardiogenic shock Hyperkalemia secondary to renal failure severe metabolic acidosis secondary to renal failure Troponin 4.290 possible acute non-ST segment elevation myocardial infarction, present on admission Increased WBC Anemia, macrocytic History possible heroin overdose Hypertension Hyperlipidemia History back pain History of MRSA History of cholecystectomy History of depression History of nicotine dependence and history of THC use Full code Discharge disposition Patient is being discharged in a stable condition with guarded prognosis to home. Patient will follow-up with Dr. Marques upon discharge. Patient will also continue with home care in the outpatient setting. Patient will continue with a short course of oral antibiotics in the form of Augmentin twice daily for the next 7 days. Total time taken is 35 minutes. History of present illness This is an 64-year-old male who was recently admitted with acute renal failure possible overdose and was being closely monitored. Patient was closely monitored in the ICU and multiple medical consultations following. Patient required mechanical ventilation and was subsequently extubated and tolerated we ll. Patient continued to be slightly agitated and confused requiring Haldol. Patient continues to be weak although family would like to take the patient home and is agreeable to home care in the outpatient setting. Patient continues to be slightly confused although is more alert and oriented and admission. Patient continues to deny any heroin use and states the only drug use he uses is tobacco . Patient's urine drug screen was positive for opiates. Patient's current creatinine is 1.24 and a prescription was provided for repeat labs in 2-3 days to monitor kidney functions closely. Currently no reports of chest pain, shortness of breath, or palpitations. Patient is afebrile. No reports of nausea or vomiting and patient is tolerating diet. Guarded prognosis. On exam vital signs are stable. Temp is 97.5F, pulse is 71, respirations are 14, blood pressure is 126/93, oxygen saturation is 95% on room air. Cardio S1, S2 are muffled. Respiratory shows diminished breath sounds at the bases with no wheezing or rhonchi noted. Abdomen is soft and nontender. Nervous system shows no focal deficits with mild diffuse weakness. Please refer to medication reconciliation sheet for a list of medications. Patient Condition at Discharge: Fair Plan - Discharge Summary New Discharge Prescriptions: New Aspirin 81 mg PO DAILY 30 Days #30 chew Amoxic-Pot Clav 875-125Mg [Augmentin 875-125] 1 each PO Q12HR 7 Days #14 tab Diltiazem Oral [Cardizem*] 60 mg PO TID 30 Days #90 tab Carvedilol [Coreg] 12.5 mg PO BID-W/MEALS 30 Days #60 tab Sodium Bicarbonate Tab 650 mg PO BID 30 Days #60 tab Continue Citalopram Hydrobromide [CeleXA] 20 mg PO DAILY Tamsulosin HCl [Flomax] 0.4 mg PO BID Omeprazole [PriLOSEC] 20 mg PO DAILY Atorvastatin [Lipitor] 40 mg PO DAILY Discontinued Diclofenac Sodium [Voltaren] 25 mg PO BID Lisinopril [Zestril] 10 mg PO DAILY HYDROcodone/IBUPROFEN 7.5-200 [Vicoprofen 7.5-200 mg] 1 tab PO BID PRN PRN Reason: Pain Discharge Medication List Atorvastatin [Lipitor] 40 mg PO DAILY 12/10/16 [History] Citalopram Hydrobromide [CeleXA] 20 mg PO DAILY 12/10/16 [History] Omeprazole [PriLOSEC] 20 mg PO DAILY 12/10/16 [History] Tamsulosin HCl [Flomax] 0.4 mg PO BID 12/10/16 [History] Amoxic-Pot Clav 875-125Mg [Augmentin 875-125] 1 each PO Q12HR 7 Days #14 tab 12/04/19 [Rx] Aspirin 81 mg PO DAILY 30 Days #30 chew 12/04/19 [Rx] Carvedilol [Coreg] 12.5 mg PO BID-W/MEALS 30 Days #60 tab 12/04/19 [Rx] Diltiazem Oral [Cardizem*] 60 mg PO TID 30 Days #90 tab 12/04/19 [Rx] Sodium Bicarbonate Tab 650 mg PO BID 30 Days #60 tab 12/04/19 [Rx] Follow up Appointment(s)/Referral(s): [facility], [NON-STAFF] - 1-2 Days Marina Marques MD [Primary Care Provider] - 12/06/19 11:40 am Patient Instructions/Handouts: How to Stop Smoking (DC), Heart Healthy Diet (DC), Depression (DC), Hypertension (DC) Activity/Diet/Wound Care/Special Instructions: Activity Limited until follow-up Follow up with primary care provider upon discharge Follow-up with nephrology in the outpatient setting Continue antibiotics until finished Repeat labs in 2-3 days Discharge Disposition: HOME SELF-CARE
--- NOTE | 2019-12-06 12:33 | CDI ---
Documentation Clarification Form Date:12/06/19 From: Estefani Thomas Phone: If you have a question about this query, please contact Alva Rosario, Radial Drill Operator For [employer] at [phone] between 8am and 5pm. Admit Date: 11/28/19 Discharge Date: 12/04/19 Patient Name: MCKAYLA PHILIP Visit Number: [id number] ATTENTION: The Clinical Documentation Specialists (CDI) and [facility] Coding Staff appreciate your assistance in clarifying documentation. Please respond to the clarification below the line at the bottom and electronically sign. The CDI & [facility] Coding staff will review the response and follow-up if needed. Please note: Queries are made part of the Legal Health Record. If you have any questions, please contact the author of this message via ITS. Dear Dr. Nini Dalton, CHF is documented in the your PNs 12/02 & 12/03. History/Risk Factors: ATN, NSTEMI, cardiogenic shock, acute hypoxia respiratory failure, metabolic encephalpathy, aspiration pneumonia, acidosis, sp overdose, hypernatremia, paroxysmal atrial fibrillation, HTN Clinical Indicators: Patient intubated, CXR done and revealed mild CHF changes and patchy right basilar opacity could be atelectasis or could be developing infiltrate. VS/Pulse OX: 11/28-P-77, R-11, BP-95/54, O2-92 BNP: none Echocardiogram Results: There is moderate concentric left ventricular hypertrophy. Overall left ventricular systolic function is low-normal with, an EF between 50 - 55 %. Treatment: IV Lasix 80 mg given on 11/28 In your professional opinion, can you please clarify the acuity and type of CHF if known? TYPE Systolic Heart Failure Diastolic Heart Failure Systolic & Diastolic Heart Failure ACUITY Acute Chronic Acute on Chronic Heart Failure Unable to Determine Other, please specify POA YES NO MTDD
--- NOTE | 2019-12-12 12:03 | CDI ---
Documentation Clarification Form Date:12/12/19 From: Estefani Thomas Phone: If you have a question about this query, please contact Alva Rosario, Muffler Installer at [phone] between 8am and 5pm. Admit Date: 11/28/19 Discharge Date: 12/04/19 Patient Name: MCKAYLA PHILIP Visit Number: [id number] ATTENTION: The Clinical Documentation Specialists (CDI) and [facility] Coding Staff appreciate your assistance in clarifying documentation. Please respond to the clarification below the line at the bottom and electronically sign. The CDI & [facility] Coding staff will review the response and follow-up if needed. Please note: Queries are made part of the Legal Health Record. If you have any questions, please contact the author of this message via ITS. Dear Dr. Darek Haile CHF is documented in the Dr Dalton's PNs 12/02 & 12/03. History/Risk Factors: ATN, NSTEMI, cardiogenic shock, acute hypoxia respiratory failure, metabolic encephalopathy, aspiration pneumonia, acidosis, sp overdose, hypernatremia, paroxysmal atrial fibrillation, HTN Clinical Indicators: Patient intubated, CXR done and revealed mild CHF changes and patchy right basilar opacity could be atelectasis or could be developing infiltrate. VS/Pulse OX: 11/28-P-77, R-11, BP-95/54, O2-92 BNP: none Echocardiogram Results: There is moderate concentric left ventricular hypertrophy. Overall left ventricular systolic function is low-normal with, an EF between 50 - 55 %. 11/28 CXR: Clinical correlation recommended for worsening congestive heart failure. Treatment: IV Lasix 80 mg given on 11/28 In your professional opinion, can you please clarify the acuity and type of CHF if known? TYPE Systolic Heart Failure Diastolic Heart Failure Systolic & Diastolic Heart Failure ACUITY Acute Chronic Acute on Chronic Heart Failure Unable to Determine Other, please specify POA YES NO Diastolic Heart Failure Acute on Chronic Heart Failure MTDD
== END 2019-12-04 16:55 | disposition home health service (06) | DRG 917 ==
LOC: EC 13:06 → 2SICU 16:40
PROVIDERS: ADMIT Hospitalist; ATTEND Hospitalist
PROC: 0BH17EZ Insertion of Endotracheal Airway into Trachea, Via Natural or Artificial Opening (ICD-10-PCS; principal; 2019-11-30)
PROC: 02HV33Z Insertion of Infusion Device into Superior Vena Cava, Percutaneous Approach (ICD-10-PCS; principal; 2019-11-30)
PROC: 0D9670Z Drainage of Stomach with Drainage Device, Via Natural or Artificial Opening (ICD-10-PCS; principal; 2019-11-30)
PROC: 5A1945Z Respiratory Ventilation, 24-96 Consecutive Hours (ICD-10-PCS; principal; 2019-11-30)
PROC: 3E0G76Z Introduction of Nutritional Substance into Upper GI, Via Natural or Artificial Opening (ICD-10-PCS; 2019-12-01)
DX: T40.2X2A Poisoning by other opioids, intentional self-harm, initial encounter (principal); N17.0 Acute kidney failure with tubular necrosis; I21.4 Non-ST elevation (NSTEMI) myocardial infarction; R57.0 Cardiogenic shock; J96.01 Acute respiratory failure with hypoxia; J69.0 Pneumonitis due to inhalation of food and vomit; G93.41 Metabolic encephalopathy; I50.33 Acute on chronic diastolic (congestive) heart failure; E87.2 Acidosis; E87.0 Hyperosmolality and hypernatremia; F19.239 Other psychoactive substance dependence with withdrawal, unspecified; I11.0 Hypertensive heart disease with heart failure; I48.0 Paroxysmal atrial fibrillation; F11.10 Opioid abuse, uncomplicated; Z20.828 Contact with and (suspected) exposure to other viral communicable diseases; I95.9 Hypotension, unspecified; T39.395A Adverse effect of other nonsteroidal anti-inflammatory drugs [NSAID], initial encounter; E83.39 Other disorders of phosphorus metabolism; T46.4X5A Adverse effect of angiotensin-converting-enzyme inhibitors, initial encounter; E86.0 Dehydration; E87.5 Hyperkalemia; F32.9 Major depressive disorder, single episode, unspecified; E78.5 Hyperlipidemia, unspecified; D53.9 Nutritional anemia, unspecified; G89.29 Other chronic pain; M54.9 Dorsalgia, unspecified; F17.210 Nicotine dependence, cigarettes, uncomplicated; Z71.6 Tobacco abuse counseling; E66.9 Obesity, unspecified; Z68.33 Body mass index [BMI] 33.0-33.9, adult; Z79.82 Long term (current) use of aspirin; Z79.899 Other long term (current) drug therapy; Z78.1 Physical restraint status; Z71.3 Dietary counseling and surveillance; Z91.5 Personal history of self-harm; Z86.14 Personal history of Methicillin resistant Staphylococcus aureus infection; Z90.49 Acquired absence of other specified parts of digestive tract; Z87.19 Personal history of other diseases of the digestive system; Z87.39 Personal history of other diseases of the musculoskeletal system and connective tissue; Z98.890 Other specified postprocedural states; Z88.5 Allergy status to narcotic agent; Z88.8 Allergy status to other drugs, medicaments and biological substances; Z83.3 Family history of diabetes mellitus; Z82.49 Family history of ischemic heart disease and other diseases of the circulatory system
CPT/HCPCS: 36415; 36600; 70450; 71045; 71046; 76770; 80048; 80053; 80306; 80320; 80329; 81001; 82140; 82550; 82803; 82805; 83605; 83735; 84100; 84132; 84295; 84484; 85025; 85027; 85610; 85730; 87070; 87205; 93005; 93306; 94002; 94003; 94640; 96361; 96365; 96375; 99285

== ENCOUNTER → 2021-08-19 | Outpatient (CLI) | payer MEDICARE, OTHER ==
--- NOTE | 2021-08-19 11:05 | XR ---
EXAMINATION TYPE: XR chest 2V DATE OF EXAM: 08/19/2021 COMPARISON: 12/04/2019 HISTORY: Shortness of breath TECHNIQUE: Frontal and lateral views of the chest are obtained. FINDINGS: Scattered senescent parenchymal changes noted. Hyperinflation compatible with COPD. No evidence for infiltrate. No evidence for atelectasis. Heart size is stable. Mediastinal structures are stable and grossly unremarkable. No evidence for hilar prominence. Degenerative changes dorsal spine. IMPRESSION: 1. No evidence for acute pulmonary disease.
== END | disposition home or self-care (01) ==
LOC: RADXRYALE 10:43
PROVIDERS: ATTEND Internal Medicine
DX: R05.9 Cough, unspecified (principal); R06.02 Shortness of breath
CPT/HCPCS: 71046

== ENCOUNTER → 2023-01-19 | Outpatient (CLI) | payer MEDICARE, OTHER ==
--- NOTE | 2023-01-19 20:25 | US ---
EXAMINATION TYPE: US kidneys/renal and bladder DATE OF EXAM: 01/19/2023 COMPARISON: NONE CLINICAL INDICATION: Male, 67 years old with history of N28.9 Abnormal kidney function; Abnormal kidn ey function EXAM MEASUREMENTS: Right Kidney: 8.0 x 4.1 x 3.4 cm Left Kidney: 11.5 x 5.6 x 4.5 cm Right Kidney: No hydronephrosis or masses seen Left Kidney: No hydronephrosis or masses seen Bladder: Anechoic Bilateral Jets seen: No left only There is poor cortical medullary differentiation of the right kidney. Some right renal failure may be present. IMPRESSION: 1. Suggestion of right renal failure. 2. Acute abnormality is not otherwise evident.
[2023-01-20 02:05] LABS: HCT 43.1 % (39.6-50.0); MCHC 32.5 d/dL (32.0-37.0); MCV 95.6 FL (80.0-97.0); Mean Platelet Volume 10.6 FL (9.5-12.2); NRBC Per 100 WBC 0 X 10*3/uL (0.00-0.01); Platelet Count 198 X 10*3/uL (140-440); RBC 4.51 X 10*6/uL (4.40-5.60); RDW 14.5 % (11.5-14.5); WBC 11.73 X 10*3/uL (4.50-10.00)
[2023-01-20 02:49] LABS: ALT 17 U/L (10-49); AST 21 U/L (14-35); Albumin 4.2 d/dL (3.8-4.9); Albumin/Globulin Ratio 1.62 Ratio (1.60-3.17); Alkaline Phosphatase 99 U/L (41-126); BUN/Creat Ratio 14.35 Ratio (12.00-20.00); Blood Urea Nitrogen 24.4 mg/dL (9.0-27.0); Calcium 8.9 mg/dL (8.7-10.3); Carbon Dioxide 20.3 mmol/L (21.6-31.8); Chloride 101 mmol/L (96-109); Globulin 2.6 d/dL (1.6-3.3); Glucose 117 mg/dL (70-110); Phosphorus 3.3 mg/dL (2.4-5.1); Potassium 4.7 mmol/L (3.5-5.5); Sodium 134 mmol/L (135-145); Total Bilirubin 0.4 mg/dL (0.3-1.2); Total Protein 6.8 d/dL (6.2-8.2)
[2023-01-20 09:55] LABS: Total Protein 24 Hour,Urine 305 mg/24Hr (0.0-165.0)
== END | disposition home or self-care (01) ==
LOC: RADUSWWP 14:06
PROVIDERS: ATTEND Internal Medicine
DX: N28.9 Disorder of kidney and ureter, unspecified (principal)
CPT/HCPCS: 76770; 80053; 81050; 82570; 84100; 84156; 85027

== ENCOUNTER 2023-11-11 09:59 | Emergency (ER) | payer MEDICARE, OTHER ==
[2023-11-11] MEDS: HYDROmorphone 1 MG/ML 1 ML SYRINGE IM STA (10:29)
--- NOTE | 2023-11-11 11:36 | US ---
EXAMINATION TYPE: US venous doppler duplex LE RT DATE OF EXAM: 11/11/2023 10:56 AM COMPARISON: NONE CLINICAL INDICATION: Male, 68 years old with history of pain; rt knee and calf pain/ swelling SIDE PERFORMED: Right TECHNIQUE: The lower extremity deep venous system is examined utilizing real time linear array sonog selma with graded compression, doppler sonography and color-flow sonography. VESSELS IMAGED: Common Femoral Vein Deep Femoral Vein Greater Saphenous Vein * Femoral Vein Popliteal Vein Small Saphenous Vein * Proximal Calf Veins (* superficial vessels) Right Leg: Negative for DVT There is a 17.3 x 1.6 x 4.4 cm complex fluid collection at the medial right calf. There is also a 10. 5x2.1x3.6cm complex fluid collection at the right pop fossa. IMPRESSION: 1. No evidence for DVT within the right lower extremity imaged from the groin to the upper calf. 2. However, there is a large, elongated fluid collection extending from the right knee down medial ri ght calf measuring up to 17.3 cm long. A second 10.5 cm complex fluid collection in the popliteal fos sa could represent a Gorman's cyst. Ruptured Gorman's cyst and hematoma are considerations. Correlate w ith anticoagulation status and for any recent injury. MRI if clinically indicated. Otherwise, follow- up ultrasound to ensure gradual involution.
[2023-11-11 12:36] VITALS: RESP 18
--- NOTE | 2023-11-11 12:40 | XR ---
EXAMINATION TYPE: XR knee complete RT DATE OF EXAM: 11/11/2023 COMPARISON: NONE HISTORY: 68-year-old male with pain after fall TECHNIQUE: 3 views FINDINGS: There is severe loss of cartilage and joint space in the medial compartment with bone-on-stephanie ne articulation and marginal spurring. Meniscal chondrocalcinosis noted. Moderate knee joint effusion is noted. No likely necrosis on the crosstable lateral view. Mild anterior soft tissue swelling. No acute fracture, subluxation, dislocation seen. IMPRESSION: 1. Moderate to severe medial compartmental OA with acnh-dy-lkin abutment. 2. Moderate knee joint effusion but no acute osseous abnormality seen. If concern for internal derang ement or occult osseous injury, MRI can be performed.
--- NOTE | 2023-11-11 13:04 | ED ---
Extremity Problem HPI - General Chief complaint: Extremity Problem,Nontraumatic Stated complaint: R Knee Pain Time Seen by Provider: 11/11/23 10:05 Source: patient, RN notes reviewed Mode of arrival: ambulatory Limitations: no limitations - History of Present Illness Initial comments: 68-year-old male presents emergency department complaint of right leg pain. Patient states that he has been having creasing pain specially of recent. Patient states that he did have a fall approximately month ago. He states his leg is swollen, painful hurts to ambulate and touch. Patient denies any fevers or chills no paresthesias no other complaints. Denies any back pain no bowel bladder incontinence retention no saddle anesthesias. - Related Data Home Medications Medication Instructions Recorded Confirmed Atorvastatin [Lipitor] 40 mg PO DAILY 12/10/16 11/28/19 Citalopram Hydrobromide [CeleXA] 20 mg PO DAILY 12/10/16 11/28/19 Omeprazole [PriLOSEC] 20 mg PO DAILY 12/10/16 11/28/19 Tamsulosin HCl [Flomax] 0.4 mg PO BID 12/10/16 11/28/19 Previous Rx's Medication Instructions Recorded Amoxic-Pot Clav 875-125Mg 1 each PO Q12HR 7 Days #14 tab 12/04/19 [Augmentin 875-125] Aspirin 81 mg PO DAILY 30 Days #30 chew 12/04/19 Diltiazem Oral [Cardizem*] 60 mg PO TID 30 Days #90 tab 12/04/19 Sodium Bicarbonate Tab 650 mg PO BID 30 Days #60 tab 12/04/19 carvediloL [Coreg] 12.5 mg PO BID-W/MEALS 30 Days #60 12/04/19 tab Allergies Allergy/AdvReac Type Severity Reaction Status Date / Time tramadol Allergy Unknown Rash/Hives Verified 11/11/23 10:04 bupropion [From Wellbutrin] AdvReac Unknown STATES IT Verified 11/11/23 10:04 MADE HIM ANGRY Review of Systems ROS Statement: Those systems with pertinent positive or pertinent negative responses have been documented in the HPI. ROS Other: All systems not noted in ROS Statement are negative. Past Medical History Past Medical History: Hyperlipidemia, Hypertension Additional Past Medical History / Comment(s): BACK PAIN History of Any Multi-Drug Resistant Organisms: MRSA Date of last positivie culture/infection: 2012 MDRO Source:: SKIN Past Surgical History: Cholecystectomy Additional Past Surgical History / Comment(s): CERVICAL SURGERY, FATTY TUMOR REMOVED, LEFT HAND SURGERY Past Anesthesia/Blood Transfusion Reactions: No Reported Reaction Past Psychological History: Depression Smoking Status: Current every day smoker Past Alcohol Use History: None Reported Past Drug Use History: None Reported - Past Family History Mother Family Medical History: No Reported History Additional Family Medical History / Comment(s): Mother had heart attack around age 70. Sister(s) Family Medical History: Diabetes Mellitus General Exam Limitations: no limitations General appearance: alert, in no apparent distress Head exam: Present: atraumatic, normocephalic, normal inspection Respiratory exam: Present: normal lung sounds bilaterally. Absent: respiratory distress, wheezes, rales, rhonchi, stridor Cardiovascular Exam: Present: regular rate, normal rhythm, normal heart sounds. Absent: systolic murmur, diastolic murmur, rubs, gallop, clicks GI/Abdominal exam: Present: soft, normal bowel sounds. Absent: distended, tenderness, guarding, rebound, rigid Extremities exam: Present: other (Right leg swelling there is equal pedal pulses noted, there is tenderness in the mid calf to medial knee aspect) Course Vital Signs 11/11/23 11/11/23 10:03 12:34 Temperature 98.1 F 98.1 F Pulse Rate 55 L 61 Respiratory 20 18 Rate Blood Pressure 143/82 150/80 O2 Sat by Pulse 99 97 Oximetry Medical Decision Making - Medical Decision Making Was pt. sent in by a medical professional or institution (, PA, MANAGER SHIPPING, urgent care, hospital, or long-term...) When possible be specific @ -No Did you speak to anyone other than the patient for history (EMS, parent, family, police, friend...)? What history was obtained from this source @ -No Did you review nursing and triage notes (agree or disagree)? Why? @ -I reviewed and agree with nursing and triage notes Were old charts reviewed (outside hosp., previous admission, EMS record, old EKG, old radiological studies, urgent care reports/EKG's, long-term records)? Report findings @ -No old charts were reviewed Differential Diagnosis (chest pain, altered mental status, abdominal pain women, abdominal pain men, vaginal bleeding, weakness, fever, dyspnea, syncope, headache, dizziness, GI bleed, back pain, seizure, CVA, palpatations, mental health, musculoskeletal)? @ -DVT, superficial thrombophlebitis, leg fracture, contusion, hematoma EKG interpreted by me (3pts min.). @ -None X-rays interpreted by me (1pt min.). @ -X-ray of the knee showing moderate joint effusion, degenerative changes CT interpreted by me (1pt min.). @ -None done U/S interpreted by me (1pt. min.). @ -Also venous Doppler negative for acute DVT of the right leg, there is 2 fluid collections Gorman's cyst versus elongated area considered for hematoma. What testing was considered but not performed or refused? (CT, X-rays, U/S, labs)? Why? @ -None What meds were considered but not given or refused? Why? @ -None Did you discuss the management of the patient with other professionals (professionals i.e. , PA, MANAGER SHIPPING, lab, RT, psych nurse, social insurance specialist, machine wiper, teacher, juvenile officer, case manager specialist)? Give summary @ -No Was smoking cessation discussed for >3mins.? @ -No Was critical care preformed (if so, how long)? @ -No Were there social determinants of health that impacted care today? How? (Homelessness, low income, unemployed, alcoholism, drug addiction, transportation, low edu. Level, literacy, decrease access to med. care, [facility], rehab)? @ -No Was there de-escalation of care discussed even if they declined (Discuss DNR or withdrawal of care, Hospice)? DNR status @ -No What co-morbidities impacted this encounter? (DM, HTN, Smoking, COPD, CAD, Cancer, CVA, ARF, Chemo, Hep., AIDS, mental health diagnosis, sleep apnea, morbid obesity)? @ -None Was patient admitted / discharged? Hospital course, mention meds given and r oute, prescriptions, significant lab abnormalities, going to OR and other pertinent info. @ -Patient's ultrasound x-ray reviewed patient has evidence of Gorman's cyst along with hematoma possible ruptured Gorman's cyst. Patient will follow-up with orthopedics return parens discussed. Undiagnosed new problem with uncertain prognosis? @ -No Drug Therapy requiring intensive monitoring for toxicity (Heparin, Nitro, Insulin, Cardizem)? @ -No Were any procedures done? @ -No Diagnosis/symptom? @ -Right leg hematoma, Gorman's cyst Acute, or Chronic, or Acute on Chronic? @ -Acute Uncomplicated (without systemic symptoms) or Complicated (systemic symptoms)? @ -Uncomplicated Side effects of treatment? @ -No Exacerbation, Progression, or Severe Exacerbation? @ -No Poses a threat to life or bodily function? How? (Chest pain, [place], HI, pneumonia, PE, COPD, DKA, ARF, appy, cholecystitis, CVA, Diverticulitis, Homicidal, Suicidal, threat to staff... and all critical care pts) @ -No Disposition Clinical Impression: Hematoma of right lower leg, Synovial cyst of popliteal space [Gorman], right knee Disposition: HOME SELF-CARE Condition: Stable Instructions (If sedation given, give patient instructions): Gorman Cyst (ED), Hematoma (ED) Additional Instructions: Please return to the Emergency Department if symptoms worsen or any other concerns. Is patient prescribed a controlled substance at d/c from ED?: No Referrals: Marina Marques MD [Primary Care Provider] - 1-2 days Thomas Abbott DO [Doctor of Osteopathic Medicine] - 1-2 days Time of Disposition: 13:03
[2023-11-11] MEDS: ACET/COD 300 MG/30 MG STARTER PACK 6 TAB BTL PO STA (13:21)
[2023-11-11 13:41] VITALS: BP 137/88; PULSE 62; TEMP 98
== END 2023-11-11 13:42 | disposition home or self-care (01) ==
LOC: EC 09:59
DX: S80.01XA Contusion of right knee, initial encounter (principal); M71.21 Synovial cyst of popliteal space [Baker], right knee; F17.200 Nicotine dependence, unspecified, uncomplicated; Z88.5 Allergy status to narcotic agent; Z88.8 Allergy status to other drugs, medicaments and biological substances; W19.XXXA Unspecified fall, initial encounter
CPT/HCPCS: 73562; 93971; 99284; 96372; J1170

== ENCOUNTER → 2024-11-08 | Outpatient (CLI) | payer MEDICARE, OTHER ==
--- NOTE | 2024-11-09 08:43 | XR ---
EXAMINATION TYPE: XR bone survey complete DATE OF EXAM: 11/08/2024 3:08 PM COMPARISON: None. CLINICAL INDICATION: Male, 69 years old with history of D47.2 MONOCLONAL GAMMOPATHY, pain TECHNIQUE: Multiple view(s) obtained. FINDINGS: Chest: Heart size is normal. Pulmonary vasculature is normal. Lungs are clear. Left shoulder prosthes is is present. Osseous structures as visualized appear unremarkable. Cervical spine: Prevertebral space is normal. There is minimal grade 1 spondylolisthesis of C3 anteri or C4. Some mild grade 1 spondylolisthesis of C4 on C5 may be present. There is loss of disc height a t C5-6 C6-7. Posterior spinal lamellar line is intact. Some facet degenerative changes are present. C alcification in the carotid arteries is present. No suspicious lucencies within the osseous structure s is evident. Calvarium: No suspicious lytic lesions silhouette is unremarkable. Patient is edentulous. Humeri: Left shoulder prosthesis is present. No suspicious lucencies. Some degenerative change of the right elbow is present. Thoracic spine: There are 12 thoracic type vertebral bodies. Pedicles are intact. Mild diffuse disc s pace narrowing is present. Alignment is preserved. No suspicious lytic areas identified. Lumbar spine: Scoliosis is present. There is degenerative disc changes and vacuum disc phenomenon L2- 3 through L4 and L5-S1. No suspicious lytic area. Pelvis: AP pelvis is obtained. Femoral heads are clear with the acetabulum. Symphysis pubis is normal . There may be some fusion of the left sacroiliac joint. Right sacroiliac joint appears intact. No uriarte spicious lucency is identified. Femurs: Femoral heads articulate with the acetabulum. Some mild joint space narrowing at the right hi p is noted. Degenerative changes throughout the right knee. Mild narrowing of the left hip joint spac e is present. Left knee prosthesis is present. No suspicious lytic lesions. IMPRESSION: 1. No suspicious lucencies are identified. 2. Chronic changes discussed above. Most notably degenerative disc disc changes and scoliosis within the lumbar spine [facility], , 11/09/2024 8:41 AM
== END | disposition home or self-care (01) ==
LOC: RADXRMAIN 14:16
PROVIDERS: ATTEND Internal Medicine Hematology & Oncology
DX: D47.2 Monoclonal gammopathy (principal); M51.360 Other intervertebral disc degeneration, lumbar region with discogenic back pain only; M41.86 Other forms of scoliosis, lumbar region; Z96.652 Presence of left artificial knee joint
CPT/HCPCS: 77075